=== PATIENT | male | born 1960 | race Caucasian/White ===

== ENCOUNTER 2018-07-25 12:27 | Emergency (ER) | payer BC ==
--- NOTE | 2018-07-25 13:33 | EDM.PDOCBH ---
ED HPI GENERAL MEDICAL PROBLEM - General Chief Complaint: Drug or Alcohol Abuse Stated Complaint: MAZIN DRINKING FOR 5 DAYS Time Seen by Provider: 07/25/18 13:23 Source of Information: Reports: Patient, Family, RN Notes Reviewed History Limitations: Reports: No Limitations - History of Present Illness INITIAL COMMENTS - FREE TEXT/NARRATIVE: 58-year-old gentleman presents to emergency department today requesting alcohol treatment. They do have a bed at the detox facility he will need medical evaluation prior he has no particular complaints at this time last used alcohol 3-4 hours ago Back Pain Score (Numeric/FACES): 6 - Related Data Allergies Allergy/AdvReac Type Severity Reaction Status Date / Time oyster extract Allergy Shortness Verified 07/25/18 13:52 of Breath Past Medical History Psychiatric History: Reports: Addiction Social & Family History - Tobacco Use Smoking Status *Q: Current Some Day Smoker ED ROS GENERAL - Review of Systems Review Of Systems: See Below Constitutional: Reports: No Symptoms HEENT: Reports: No Symptoms Respiratory: Reports: No Symptoms Cardiovascular: Reports: No Symptoms GI/Abdominal: Reports: No Symptoms : Reports: No Symptoms ED EXAM, BEHAVIORAL HEALTH - Physical Exam Exam: See Below Exam Limited By: No Limitations General Appearance: Alert, WD/WN, No Apparent Distress Respiratory/Chest: No Respiratory Distress, Lungs Clear, Normal Breath Sounds, No Accessory Muscle Use, Chest Non-Tender Cardiovascular: Regular Rate, Rhythm, No Murmur GI/Abdominal: Soft, Non-Tender COURSE, BEHAVIORAL HEALTH COMP - Course Vital Signs: Last Vital Signs Temp 97.8 F 07/25/18 12:46 Pulse 87 07/25/18 13:54 Resp 16 07/25/18 13:54 BP 111/72 07/25/18 13:54 Pulse Ox 90 L 07/25/18 13:54 Orders, Labs, Meds: Laboratory Tests 07/25/18 07/25/18 07/25/18 Range/Units 13:26 13:26 13:39 WBC 11.3 H (4.5-11.0) K/uL RBC 5.15 (4.30-5.90) M/uL Hgb 15.1 H (12.0-15.0) g/dL Hct 44.6 (40.0-54.0) % MCV 87 (80-98) fL MCH 29 (27-31) pg MCHC 34 (32-36) % Plt Count 346 (150-400) K/uL Neut % (Auto) 39 (36-66) % Lymph % (Auto) 33 (24-44) % [place] % (Auto) 6 (2-6) % Eos % (Auto) 21 H (2-4) % Baso % (Auto) 1 (0-1) % Sodium (140-148) mmol/L Potassium (3.6-5.2) mmol/L Chloride (100-108) mmol/L Carbon Dioxide (21-32) mmol/L Anion Gap (5.0-14.0) mmol/L BUN (7-18) mg/dL Creatinine (0.8-1.3) mg/dL Est Cr Clr Drug Dosing mL/min Estimated GFR (MDRD) (>60) Glucose (74-106) mg/dL Calcium (8.5-10.1) mg/dL Total Bilirubin (0.2-1.0) mg/dL AST (15-37) U/L ALT (12-78) U/L Alkaline Phosphatase (46-116) U/L Total Protein (6.4-8.2) g/dL Albumin (3.4-5.0) g/dL Globulin (2.3-3.5) g/dL Albumin/Globulin Ratio (1.2-2.2) Urine Color Yellow Urine Appearance Clear Urine pH 7.0 (4.5-8.0) Ur Specific [place] 1.010 (1.008-1.030) Urine Protein Negative (NEGATIVE) mg/dL Urine Glucose (UA) Normal (NEGATIVE) mg/dL Urine Ketones Negative (NEGATIVE) mg/dL Urine Occult Blood Negative (NEGATIVE) Urine Nitrite Negative (NEGAITVE) Urine Bilirubin Negative (NEGATIVE) Urine Urobilinogen Normal (NORMAL) mg/dL Ur Leukocyte Esterase Negative (NEGATIVE) Urine RBC Not seen (0-5) Urine WBC Not seen (0-5) Ur Epithelial Cells Not seen Amorphous Sediment Not seen Urine Bacteria Not seen Urine Mucus Not seen Urine Opiates Screen Negative (NEGATIVE) Ur Oxycodone Screen Presumptive positive H (NEGATIVE) Urine Methadone Screen Negative (NEGATIVE) Ur Propoxyphene Screen Negative (NEGATIVE) Ur Barbiturates Screen Negative (NEGATIVE) Ur Tricyclics Screen Negative (NEGATIVE) Ur Phencyclidine Scrn Negative (NEGATIVE) Ur Amphetamine Screen Negative (NEGATIVE) U Methamphetamines Scrn Negative (NEGATIVE) Urine MDMA Screen Negative (NEGATIVE) U Benzodiazepines Scrn Presumptive positive H (NEGATIVE) U Cocaine Metab Screen Negative (NEGATIVE) U Marijuana (THC) Screen Negative (NEGATIVE) Ethyl Alcohol mg/dL 07/25/18 07/25/18 Range/Units 13:39 13:39 WBC (4.5-11.0) K/uL RBC (4.30-5.90) M/uL Hgb (12.0-15.0) g/dL Hct (40.0-54.0) % MCV (80-98) fL MCH (27-31) pg MCHC (32-36) % Plt Count (150-400) K/uL Neut % (Auto) (36-66) % Lymph % (Auto) (24-44) % [place] % (Auto) (2-6) % Eos % (Auto) (2-4) % Baso % (Auto) (0-1) % Sodium 140 (140-148) mmol/L Potassium 3.9 (3.6-5.2) mmol/L Chloride 98 L (100-108) mmol/L Carbon Dioxide 29 (21-32) mmol/L Anion Gap 16.9 H (5.0-14.0) mmol/L BUN 7 (7-18) mg/dL Creatinine 0.7 L (0.8-1.3) mg/dL Est Cr Clr Drug Dosing 116.43 mL/min Estimated GFR (MDRD) > 60 (>60) Glucose 158 H (74-106) mg/dL Calcium 8.8 (8.5-10.1) mg/dL Total Bilirubin 0.2 (0.2-1.0) mg/dL AST 31 (15-37) U/L ALT 29 (12-78) U/L Alkaline Phosphatase 85 (46-116) U/L Total Protein 6.6 (6.4-8.2) g/dL Albumin 2.9 L (3.4-5.0) g/dL Globulin 3.7 H (2.3-3.5) g/dL Albumin/Globulin Ratio 0.8 L (1.2-2.2) Urine Color Urine Appearance Urine pH (4.5-8.0) Ur Specific [place] (1.008-1.030) Urine Protein (NEGATIVE) mg/dL Urine Glucose (UA) (NEGATIVE) mg/dL Urine Ketones (NEGATIVE) mg/dL Urine Occult Blood (NEGATIVE) Urine Nitrite (NEGAITVE) Urine Bilirubin (NEGATIVE) Urine Urobilinogen (NORMAL) mg/dL Ur Leukocyte Esterase (NEGATIVE) Urine RBC (0-5) Urine WBC (0-5) Ur Epithelial Cells Amorphous Sediment Urine Bacteria Urine Mucus Urine Opiates Screen (NEGATIVE) Ur Oxycodone Screen (NEGATIVE) Urine Methadone Screen (NEGATIVE) Ur Propoxyphene Screen (NEGATIVE) Ur Barbiturates Screen (NEGATIVE) Ur Tricyclics Screen (NEGATIVE) Ur Phencyclidine Scrn (NEGATIVE) Ur Amphetamine Screen (NEGATIVE) U Methamphetamines Scrn (NEGATIVE) Urine MDMA Screen (NEGATIVE) U Benzodiazepines Scrn (NEGATIVE) U Cocaine Metab Screen (NEGATIVE) U Marijuana (THC) Screen (NEGATIVE) Ethyl Alcohol 354 mg/dL Departure - Departure Time of Disposition: 14:16 Disposition: DC/Tfer to Inpt Rehab Fac 62 Condition: Poor Clinical Impression: Alcohol abuse - Discharge Information Referrals: PCP,None [Primary Care Provider] - Forms: ED Department Discharge Additional Instructions: Please report to [facility] for detoxification - Assessment/Plan Plan: Assessment Acuity = acute Site and laterality = alcohol abuse and intoxication Etiology = EtOH Manifestations = none Location of injury = Home Lab values = CBC, CMP unremarkable urinalysis was negative alcohol is elevated 354 and urine drug screen positive for oxycodone and benzodiazepines Plan This gentleman will be transferred to [facility] detoxification facility he is at average risk for detoxification This note was dictated using [employer] voice recognition software please call with any questions on syntax or grammar.
== END 2018-07-25 15:25 ==
LOC: JP.ED 12:27
DX: F10.229 Alcohol dependence with intoxication, unspecified (principal); F17.200 Nicotine dependence, unspecified, uncomplicated; Y90.8 Blood alcohol level of 240 mg/100 ml or more
CPT/HCPCS: 36415; 80053; 80305; 81001; 85025; 99284; G0480

== ENCOUNTER 2019-06-26 16:43 | Inpatient (IN) | payer BC ==
[2019-06-26] MEDS ORDERED: Nitroglycerin 0.4 MG Tab.SL SL STA (17:38)
[2019-06-26] MEDS ORDERED: Sodium Chloride 0.9% 10 ML Syringe FLUSH PRN (17:38)
[2019-06-26] MEDS ORDERED: fentaNYL 100 MCG/2 ML SDV IVPUSH ONE (17:40)
--- NOTE | 2019-06-26 17:43 | EDM.PDOC ---
ED HPI GENERAL MEDICAL PROBLEM - General Chief Complaint: Drug or Alcohol Abuse Stated Complaint: EVAL Time Seen by Provider: 06/26/19 17:32 Source of Information: Reports: Patient, Family, RN Notes Reviewed History Limitations: Reports: No Limitations - History of Present Illness INITIAL COMMENTS - FREE TEXT/NARRATIVE: 58-year-old gentleman presents emergency department today complaint of shortness of breath, he has a known history of alcohol abuse and dependence was found by family members to be severely impaired this morning unable to move he is requesting detoxification. Chest Pain Score (Numeric/FACES): 0 Lower Back Pain Score (Numeric/FACES): 10 - Related Data Allergies Allergy/AdvReac Type Severity Reaction Status Date / Time oyster extract Allergy Shortness Verified 07/25/18 13:52 of Breath Home Meds: Home Meds Aspirin 325 mg PO DAILY 06/26/19 [History] Insulin Glarg,Human.Rec.Analog [Lantus Solostar] 0 unit SUBCUT DAILY 06/26/19 [ History] Insulin Lispro [HumaLOG] 1 unit SQ ACBED 06/26/19 [History] metFORMIN [Glucophage] 1,000 mg PO BIDMEALS 06/26/19 [History] Past Medical History HEENT History: Reports: Cataract Cardiovascular History: Reports: Hypertension Respiratory History: Reports: COPD Gastrointestinal History: Reports: Other (See Below) Other Gastrointestinal History: hx of ulcers Musculoskeletal History: Reports: Back Pain, Chronic Neurological History: Reports: Brain Injury Psychiatric History: Reports: Addiction Endocrine/Metabolic History: Reports: Diabetes, Type I - Past Surgical History Head Surgeries/Procedures: Reports: None HEENT Surgical History: Reports: None Cardiovascular Surgical History: Reports: None Respiratory Surgical History: Reports: None GI Surgical History: Reports: None Endocrine Surgical History: Reports: None Musculoskeletal Surgical History: Reports: None Dermatological Surgical History: Reports: None Social & Family History - Family History Family Medical History: Noncontributory - Caffeine Use Caffeine Use: Reports: Coffee, Energy Drinks, Soda ED ROS GENERAL - Review of Systems Review Of Systems: See Below Constitutional: Denies: Fever, Chills HEENT: Reports: No Symptoms Respiratory: Reports: Shortness of Breath. Denies: Cough, Sputum Cardiovascular: Reports: Dyspnea on Exertion, Edema GI/Abdominal: Reports: No Symptoms : Reports: No Symptoms Musculoskeletal: Reports: Back Pain ED EXAM, GENERAL - Physical Exam Exam: See Below Exam Limited By: No Limitations General Appearance: Alert, Mild Distress Respiratory/Chest: Chest Non-Tender, Decreased Breath Sounds, Crackles Cardiovascular: Regular Rate, Rhythm, No Murmur, Other (+2 pitting edema bilaterally). No: No Edema GI/Abdominal: Soft, Non-Tender Back Exam: Decreased Range of Motion. No: CVA Tenderness (R), CVA Tenderness (L ) Course - Vital Signs Last Recorded V/S: Last Vital Signs Temp 98.0 F 06/26/19 18:44 Pulse 93 06/26/19 18:44 Resp 22 H 06/26/19 18:44 BP 129/73 06/26/19 18:44 Pulse Ox 91 L 06/26/19 18:44 - Orders/Labs/Meds Orders: Active Orders 24 hr Category Date Time Status Patient Status Manage Transfer [TRANSFER] Routine ADT 06/26/19 18:47 Active Cardiac Monitoring [RC] .As Directed Care 06/26/19 17:38 Active EKG Documentation Completion [RC] ASDIRECTED Care 06/26/19 17:40 Active Peripheral IV Care [RC] . DIRECTED Care 06/26/19 17:39 Active Chest 2V [CR] Stat Exams 06/26/19 17:40 Taken DRUG SCREEN, URINE [URCHEM] Stat Lab 06/26/19 17:38 Ordered UA W/MICROSCOPIC [URIN] Stat Lab 06/26/19 17:38 Ordered Sodium Chloride 0.9% [Saline Flush] Med 06/26/19 17:38 Active 10 ml FLUSH ASDIRECTED PRN Peripheral IV Insertion Adult [OM.PC] Stat Oth 06/26/19 17:38 Ordered Saline Lock Insert [OM.PC] Stat Oth 06/26/19 17:38 Ordered EKG 12 Lead [EK] Stat Ther 06/26/19 17:40 Ordered Medication Orders Sodium Chloride (Saline Flush) 10 ml FLUSH ASDIRECTED PRN PRN Reason: Keep Vein Open Last Admin: 06/26/19 18:26 Dose: 10 ml Labs: Laboratory Tests 06/26/19 06/26/19 06/26/19 Range/Units 18:03 18:03 18:03 WBC 9.4 (4.5-11.0) K/uL RBC 6.37 H (4.30-5.90) M/uL Hgb 18.3 H* D (12.0-15.0) g/dL Hct 53.8 (40.0-54.0) % MCV 85 (80-98) fL MCH 29 (27-31) pg MCHC 34 (32-36) % Plt Count 334 (150-400) K/uL Neut % (Auto) 59 (36-66) % Lymph % (Auto) 31 (24-44) % [place] % (Auto) 6 (2-6) % Eos % (Auto) 2 (2-4) % Baso % (Auto) 1 (0-1) % PT 9.9 (9.5-12.0) sec INR 0.91 (0.80-1.20) Sodium 137 L (140-148) mmol/L Potassium 4.1 (3.6-5.2) mmol/L Chloride 95 L (100-108) mmol/L Carbon Dioxide 29 (21-32) mmol/L Anion Gap 17.1 H (5.0-14.0) mmol/L BUN 15 D (7-18) mg/dL Creatinine 0.9 (0.8-1.3) mg/dL Est Cr Clr Drug Dosing 99.40 mL/min Estimated GFR (MDRD) > 60 (>60) Glucose 140 H (74-106) mg/dL Calcium 8.7 (8.5-10.1) mg/dL Total Bilirubin 0.2 (0.2-1.0) mg/dL AST 24 (15-37) U/L ALT 30 (12-78) U/L Alkaline Phosphatase 95 (46-116) U/L Troponin I < 0.017 (0.000-0.056) ng/mL NT-Pro-B Natriuret Pep 43 (5-125) pg/mL Total Protein 7.4 (6.4-8.2) g/dL Albumin 3.5 (3.4-5.0) g/dL Globulin 3.9 H (2.3-3.5) g/dL Albumin/Globulin Ratio 0.9 L (1.2-2.2) Ethyl Alcohol mg/dL 06/26/19 Range/Units 18:03 WBC (4.5-11.0) K/uL RBC (4.30-5.90) M/uL Hgb (12.0-15.0) g/dL Hct (40.0-54.0) % MCV (80-98) fL MCH (27-31) pg MCHC (32-36) % Plt Count (150-400) K/uL Neut % (Auto) (36-66) % Lymph % (Auto) (24-44) % [place] % (Auto) (2-6) % Eos % (Auto) (2-4) % Baso % (Auto) (0-1) % PT (9.5-12.0) sec INR (0.80-1.20) Sodium (140-148) mmol/L Potassium (3.6-5.2) mmol/L Chloride (100-108) mmol/L Carbon Dioxide (21-32) mmol/L Anion Gap (5.0-14.0) mmol/L BUN (7-18) mg/dL Creatinine (0.8-1.3) mg/dL Est Cr Clr Drug Dosing mL/min Estimated GFR (MDRD) (>60) Glucose (74-106) mg/dL Calcium (8.5-10.1) mg/dL Total Bilirubin (0.2-1.0) mg/dL AST (15-37) U/L ALT (12-78) U/L Alkaline Phosphatase (46-116) U/L Troponin I (0.000-0.056) ng/mL NT-Pro-B Natriuret Pep (5-125) pg/mL Total Protein (6.4-8.2) g/dL Albumin (3.4-5.0) g/dL Globulin (2.3-3.5) g/dL Albumin/Globulin Ratio (1.2-2.2) Ethyl Alcohol 352 mg/dL Meds: Medications Generic Name Dose Route Start Last Admin Trade Name Freq PRN Reason Stop Dose Admin Sodium Chloride 10 ml 06/26/19 17:38 06/26/19 18:26 Saline Flush FLUSH 10 ml ASDIRECTED PRN Administration Keep Vein Open Discontinued Medications Generic Name Dose Route Start Last Admin Trade Name Freq PRN Reason Stop Dose Admin Fentanyl 50 mcg 06/26/19 17:40 06/26/19 18:21 Sublimaze IVPUSH 06/26/19 17:41 50 mcg ONETIME ONE Administration Ketorolac Tromethamine 30 mg 06/26/19 18:42 Toradol IVPUSH 06/26/19 18:43 ONETIME ONE Nitroglycerin 0.4 mg 06/26/19 17:38 06/26/19 18:15 Nitrostat SL 06/26/19 17:39 0.4 mg NOW STA Administration Departure - Departure Time of Disposition: 18:52 Disposition: Admitted As Inpatient 66 Condition: Fair Clinical Impression: COPD exacerbation Referrals: PCP,None [Primary Care Provider] - Forms: ED Department Discharge Sepsis Event Note - Focused Exam Vital Signs: Vital Signs Temp Pulse Resp BP BP Pulse Ox 06/26/19 18:44 98.0 F 93 22 H 129/73 91 L 06/26/19 18:15 129/73 06/26/19 18:06 93 22 H 129/73 91 L 06/26/19 17:26 98.0 F 98 20 152/71 H 84 L Date Exam was Performed: 06/26/19 Time Exam was Performed: 18:50 - My Orders Last 24 Hours: My Active Orders 06/26/19 17:38 Cardiac Monitoring [RC] .As Directed DRUG SCREEN, URINE [URCHEM] Stat UA W/MICROSCOPIC [URIN] Stat Sodium Chloride 0.9% [Saline Flush] 10 ml FLUSH ASDIRECTED PRN Peripheral IV Insertion Adult [OM.PC] Stat Saline Lock Insert [OM.PC] Stat 06/26/19 17:39 Peripheral IV Care [RC] . DIRECTED 06/26/19 17:40 EKG Documentation Completion [RC] ASDIRECTED Chest 2V [CR] Stat EKG 12 Lead [EK] Stat - Assessment/Plan Last 24 Hours: My Active Orders 06/26/19 17:38 Cardiac Monitoring [RC] .As Directed DRUG SCREEN, URINE [URCHEM] Stat UA W/MICROSCOPIC [URIN] Stat Sodium Chloride 0.9% [Saline Flush] 10 ml FLUSH ASDIRECTED PRN Peripheral IV Insertion Adult [OM.PC] Stat Saline Lock Insert [OM.PC] Stat 06/26/19 17:39 Peripheral IV Care [RC] . DIRECTED 06/26/19 17:40 EKG Documentation Completion [RC] ASDIRECTED Chest 2V [CR] Stat EKG 12 Lead [EK] Stat Plan: Assessment Acuity = acute Site and laterality = COPD exacerbation Etiology = unknown Manifestations = hypoxia Location of injury = Home Lab values = hemoglobin elevated 18.3 probably secondary to tobacco dependence INR normal 0.9 troponin was negative BNP was negative EtOH elevated 352 chest x- ray shows some fluid in the lateral fissure, EKG demonstrates a sinus rhythm there is no ST changes or depression Plan Call discussed case with hospitalist on-call at [phone] currently agreed to come and evaluate the patient emergency department for admission This note was dictated using [employer] voice recognition software please call with any questions on syntax or grammar.
[2019-06-26] MEDS ORDERED: Ketorolac 30 MG/ML SDV IVPUSH ONE (18:42)
[2019-06-26] MEDS ORDERED: LORazepam 2 MG/ML SDV IVPUSH ONE (19:33)
--- NOTE | 2019-06-26 19:55 | PCM.HP.2 ---
H&P History of Present Illness - General Date of Service: 06/26/19 Admit Problem/Dx: Admission Diagnosis/Problem Admission Diagnosis/Problem COPD with acute lower respiratory infection Source of Information: Patient, Provider, RN History Limitations: Reports: Intoxication - History of Present Illness Initial Comments - Free Text/Narative: chief complaint: shortness of breath and drinking. 58-year-old gentleman presents emergency department today complaint of shortness of breath, he has a known history of alcohol abuse and dependence was found by family members to be severely impaired this morning unable to move he is requesting detoxification. Mr. Mike carrillo has been drinking one quart daily of scotch. requesting Detox. lorena had been sober for 10 years but got depressed and started drinking. Plan: admit to Hospital Assessment: COPD exacerbation Manifestations = hypoxia, arrived at ER with oxygen saturation at 84% Lab values = hemoglobin elevated 18.3 probably secondary to tobacco dependence INR normal 0.9 troponin was negative BNP was negative ETOH elevated 352 chest x- ray shows some fluid in the lateral fissure, EKG demonstrates a sinus rhythm there is no ST changes or depression Onset of Symptoms: Reports: Today Duration of Symptoms: Reports: Getting Worse Location: Reports: Generalized Quality: Reports: Same as Previous Episode Severity: Severe Improves with: Reports: None Worsens with: Reports: Breathing Context: Reports: Other Associated Symptoms: Reports: Confusion (drinking daily for one month.), Cough, Loss of Appetite, Malaise, Nausea/Vomiting (nausea), Shortness of Breath, Weakness Chest Pain Score (Numeric/FACES): 0 Lower Back Pain Score (Numeric/FACES): 10 - Related Data Allergies/Adverse Reactions: Allergies Allergy/AdvReac Type Severity Reaction Status Date / Time oyster extract Allergy Shortness Verified 07/25/18 13:52 of Breath Home Medications: Home Meds Aspirin 325 mg PO DAILY 06/26/19 [History] Insulin Glarg,Human.Rec.Analog [Lantus Solostar] 0 unit SUBCUT DAILY 06/26/19 [ History] Insulin Lispro [HumaLOG] 1 unit SQ ACBED 06/26/19 [History] metFORMIN [Glucophage] 1,000 mg PO BIDMEALS 06/26/19 [History] Past Medical History HEENT History: Reports: Cataract Cardiovascular History: Reports: Hypertension Respiratory History: Reports: COPD Gastrointestinal History: Reports: Other (See Below) Other Gastrointestinal History: hx of ulcers Genitourinary History: Reports: Renal Calculus, Other (See Below) Other Genitourinary History: urgency Musculoskeletal History: Reports: Back Pain, Chronic Neurological History: Reports: Brain Injury Psychiatric History: Reports: Addiction Endocrine/Metabolic History: Reports: Diabetes, Type I Do You Give Correction Boluses or Sliding Scale: Yes Patient/Family Able to Supply Written Copy of Sliding Scale: No Dermatologic History: Reports: Other (See Below) Other Dermatologic History: scratch wounds form nerves - Past Surgical History Head Surgeries/Procedures: Reports: None HEENT Surgical History: Reports: None Cardiovascular Surgical History: Reports: None Respiratory Surgical History: Reports: None GI Surgical History: Reports: None Endocrine Surgical History: Reports: None Musculoskeletal Surgical History: Reports: None Dermatological Surgical History: Reports: None Social & Family History - Family History Family Medical History: Noncontributory - Tobacco Use Smoking Status *Q: Current Every Day Smoker Years of Tobacco use: 40 Packs/Tins Daily: 2 Used Tobacco, but Quit: No - Caffeine Use Caffeine Use: Reports: Coffee, Energy Drinks, Soda - Alcohol Use Days Per Week of Alcohol Use: 7 Number of Drinks Per Day: 10 Total Drinks Per Week: 70 Alcohol Use in Last Twelve Months: Yes Alcohol Use Frequency: Daily (drinking one quart of scotch daily for one month, had been sober for 10 years prior to recent alcohol use. last drink at 1 pm today.) Desires Substance Cessation Medication: Yes (request Detox at [place], [place].) - Recreational Drug Use Recreational Drug Use: No - Living Situation & Occupation Living situation: Reports: ( of cancer.) Occupation: Other (lives on [address] in [facility] ( [place] miles north of [place], [place].)) H&P Review of Systems - Review of Systems: Review Of Systems: See Below General: Reports: Weakness, Fatigue, Other (thirsty) HEENT: Reports: Other (sore on upper lip) Pulmonary: Reports: Shortness of Breath, Wheezing, Cough Cardiovascular: Reports: Dyspnea on Exertion, Edema Gastrointestinal: Reports: Nausea Genitourinary: Reports: No Symptoms Musculoskeletal: Reports: No Symptoms Skin: Reports: Bruising (forearms) Psychiatric: Reports: Depression (reports depressed thinking of his who has of cancer.), Anxiety Neurological: Reports: Weakness, Other (intoxication. ETOH level 352) Hematologic/Lymphatic: Reports: Easy Bleeding, Easy Bruising Immunologic: Reports: No Symptoms Exam - Exam Exam: See Below - Vital Signs Vital Signs: Last Vital Signs Temp 36.7 C 06/26/19 18:44 Pulse 94 06/26/19 18:45 Resp 24 H 06/26/19 18:45 BP 141/87 H 06/26/19 18:45 Pulse Ox 94 L 06/26/19 18:45 Weight: 104.326 kg - Exam Quality Assessment: Supplemental Oxygen (oxygen at 3 liter per NC) General: Alert, Cooperative, Mild Distress, Other (face is red, eyes bloodshot) HEENT: EOMI, Hearing Intact, Pupils Equal, Pupils Reactive, Other (mouth-tongue dried. ulcer noted oral cavity lower lip). No: Conjunctiva Clear (sclera injected) Neck: Supple, Trachea Midline Lungs: Decreased Breath Sounds, Crackles, Wheezing Cardiovascular: Regular Rate, Regular Rhythm GI/Abdominal Exam: Normal Bowel Sounds, Soft, Non-Tender, Other (obese) (Male) Exam: Deferred Rectal (Males) Exam: Deferred Back Exam: Normal Inspection, Full Range of Motion Extremities: Normal Range of Motion, Pedal Edema (1+ bilateral lower leg edema) Peripheral Pulses: 2+: Radial (L), Radial (R) Skin: Warm, Dry, Ecchymosis, Wound (few scattered abrasion bilateral forearms.) Neurological: Reflexes Equal Bilateral, Strength Equal Bilateral, Normal Speech , Normal Tone Neuro Extensive - Mental Status: Alert Psychiatric: Alert, Anxious - Patient Data Lab Results Last 24 hrs: Laboratory Results - last 24 hr 06/26/19 06/26/19 06/26/19 Range/Units 18:03 18:03 18:03 WBC 9.4 (4.5-11.0) K/uL RBC 6.37 H (4.30-5.90) M/uL Hgb 18.3 H* D (12.0-15.0) g/dL Hct 53.8 (40.0-54.0) % MCV 85 (80-98) fL MCH 29 (27-31) pg MCHC 34 (32-36) % Plt Count 334 (150-400) K/uL Neut % (Auto) 59 (36-66) % Lymph % (Auto) 31 (24-44) % Granite % (Auto) 6 (2-6) % Eos % (Auto) 2 (2-4) % Baso % (Auto) 1 (0-1) % PT 9.9 (9.5-12.0) sec INR 0.91 (0.80-1.20) Sodium 137 L (140-148) mmol/L Potassium 4.1 (3.6-5.2) mmol/L Chloride 95 L (100-108) mmol/L Carbon Dioxide 29 (21-32) mmol/L Anion Gap 17.1 H (5.0-14.0) mmol/L BUN 15 D (7-18) mg/dL Creatinine 0.9 (0.8-1.3) mg/dL Est Cr Clr Drug Dosing 99.40 mL/min Estimated GFR (MDRD) > 60 (>60) Glucose 140 H (74-106) mg/dL Calcium 8.7 (8.5-10.1) mg/dL Total Bilirubin 0.2 (0.2-1.0) mg/dL AST 24 (15-37) U/L ALT 30 (12-78) U/L Alkaline Phosphatase 95 (46-116) U/L Troponin I < 0.017 (0.000-0.056) ng/mL NT-Pro-B Natriuret Pep 43 (5-125) pg/mL Total Protein 7.4 (6.4-8.2) g/dL Albumin 3.5 (3.4-5.0) g/dL Globulin 3.9 H (2.3-3.5) g/dL Albumin/Globulin Ratio 0.9 L (1.2-2.2) Ethyl Alcohol mg/dL 06/26/19 Range/Units 18:03 WBC (4.5-11.0) K/uL RBC (4.30-5.90) M/uL Hgb (12.0-15.0) g/dL Hct (40.0-54.0) % MCV (80-98) fL MCH (27-31) pg MCHC (32-36) % Plt Count (150-400) K/uL Neut % (Auto) (36-66) % Lymph % (Auto) (24-44) % Granite % (Auto) (2-6) % Eos % (Auto) (2-4) % Baso % (Auto) (0-1) % PT (9.5-12.0) sec INR (0.80-1.20) Sodium (140-148) mmol/L Potassium (3.6-5.2) mmol/L Chloride (100-108) mmol/L Carbon Dioxide (21-32) mmol/L Anion Gap (5.0-14.0) mmol/L BUN (7-18) mg/dL Creatinine (0.8-1.3) mg/dL Est Cr Clr Drug Dosing mL/min Estimated GFR (MDRD) (>60) Glucose (74-106) mg/dL Calcium (8.5-10.1) mg/dL Total Bilirubin (0.2-1.0) mg/dL AST (15-37) U/L ALT (12-78) U/L Alkaline Phosphatase (46-116) U/L Troponin I (0.000-0.056) ng/mL NT-Pro-B Natriuret Pep (5-125) pg/mL Total Protein (6.4-8.2) g/dL Albumin (3.4-5.0) g/dL Globulin (2.3-3.5) g/dL Albumin/Globulin Ratio (1.2-2.2) Ethyl Alcohol 352 mg/dL Result Diagrams: 06/26/19 18:03 06/26/19 18:03 Sepsis Event Note - Evaluation Sepsis Screening Result: No Definite Risk - Focused Exam Vital Signs: Vital Signs Temp Pulse Resp BP BP Pulse Ox 06/26/19 18:45 94 24 H 141/87 H 94 L 06/26/19 18:44 36.7 C 93 22 H 129/73 91 L 06/26/19 18:35 28 H 105/46 L 90 L 06/26/19 18:15 129/73 06/26/19 18:06 93 22 H 129/73 91 L 06/26/19 17:26 36.7 C 98 20 152/71 H 84 L Date Exam was Performed: 06/26/19 Time Exam was Performed: 20:46 - Problem List (1) COPD exacerbation SNOMED Code(s): 860651727 ICD Code: J44.1 - CHRONIC OBSTRUCTIVE PULMONARY DISEASE W (ACUTE) EXACERBATION Status: Acute Priority: High Current Visit: Yes (2) Alcohol abuse SNOMED Code(s): 19281664 ICD Code: F10.10 - ALCOHOL ABUSE, UNCOMPLICATED Status: Acute Priority: High Current Visit: Yes (3) Tobacco use disorder, severe, dependence SNOMED Code(s): 83753457 ICD Code: F17.200 - NICOTINE DEPENDENCE, UNSPECIFIED, UNCOMPLICATED Status : Acute Priority: High Current Visit: Yes (4) Diabetes mellitus, type 2 SNOMED Code(s): 62414537 ICD Code: E11.9 - TYPE 2 DIABETES MELLITUS WITHOUT COMPLICATIONS Status: Acute Priority: Low Current Visit: Yes Qualifiers: Diabetes mellitus group home insulin use: with group home use Problem List Initiated/Reviewed/Updated: Yes Orders Last 24hrs: Active Orders 24 hr Category Date Time Status Patient Status Manage Transfer [TRANSFER] Routine ADT 06/26/19 18:47 Active Cardiac Monitoring [RC] .As Directed Care 06/26/19 17:38 Active EKG Documentation Completion [RC] ASDIRECTED Care 06/26/19 17:40 Active Peripheral IV Care [RC] . DIRECTED Care 06/26/19 17:39 Active Chest 2V [CR] Stat Exams 06/26/19 17:40 Taken DRUG SCREEN, URINE [URCHEM] Stat Lab 06/26/19 17:38 Ordered UA W/MICROSCOPIC [URIN] Stat Lab 06/26/19 17:38 Ordered Sodium Chloride 0.9% [Saline Flush] Med 06/26/19 17:38 Active 10 ml FLUSH ASDIRECTED PRN Peripheral IV Insertion Adult [OM.PC] Stat Oth 06/26/19 17:38 Ordered Saline Lock Insert [OM.PC] Stat Oth 06/26/19 17:38 Ordered Resuscitation Status Routine Resus Stat 06/26/19 19:35 Ordered EKG 12 Lead [EK] Stat Ther 06/26/19 17:40 Ordered Medication Orders Sodium Chloride (Saline Flush) 10 ml FLUSH ASDIRECTED PRN PRN Reason: Keep Vein Open Last Admin: 06/26/19 18:26 Dose: 10 ml Assessment/Plan Comment:: ASSESSMENT AND PLAN- COPD EXACERBATION 58-year-old gentleman presents emergency department today complaint of shortness of breath, he has a known history of alcohol abuse and dependence was found by family members to be severely impaired this morning unable to move. Manifestations = hypoxia, arrived at ER with oxygen saturation at 84% Lab values = hemoglobin elevated 18.3 probably secondary to tobacco dependence INR normal 0.9 troponin was negative BNP was negative ETOH elevated 352 chest x- ray shows some fluid in the lateral fissure, EKG demonstrates a sinus rhythm there is no ST changes or depression COPD EXACERBATION Advise to be on home oxygen but declines. He smoke 2 packs of cigarettes daily. -IV fluids for hydration -IV Doxycycline 100mg every 12 hours -IV Solu-Medrol 125mg once then IV 62.5 mg. every 6 hours -Duo-neb scheduled every 6 hours -Albuterol nebs every 4 hours as needed -am lab CBC, BMP ETOH ABUSE- reports drinking one quart of scotch daily for one month. Reports had been 10 years sober. starting drinking due to depression. Requesting Detox at [place]. Had tried to quit drinking before but experience withdrawals and hallucinations. Starting to feel agitated and anxious even with a alcohol level of 357. -Pain and nausea medication as needed -CIWAA protocol -Protonix 40 mg p.o. twice daily -IV fluids Normal Saline 125 ml/hr. DIABETES TYPE 2- has not been taking insulin for a long time because was afraid of low blood sugars with insulin and alcohol use. -blood glucose before meals and at bedtime -Insulin high dose sliding scale coverage -restart Lantus 30 mg subcut. at bedtime MAINTENANCE ISSUES -DVT prophylaxis- SCD -GI prophylaxis- IV Protonix 40 mg every 12 hours -Samuel catheter- not indicated -Nutrition- consistent carb diet -Nicotine dependence- Nicotine patch CODE STATUS-FULL CODE ADMISSION STATUS-patient will be admitted to inpatient status, expect at least a 2 night hospital stay for evaluation and management of problems as outlined above. At the time of this admission I do not reasonably expected evaluation and management of this problem will require more than a 96 hour hospital stay. DISPOSITION-anticipate discharge to home after the hospital stay. PRIMARY CARE PROVIDER-Dr. Sal, Wayne Herrera, [place] HOSPITALIST- Dr. Lombardo - Mortality Measure Prognosis:: Good - Mortality Measure Prognosis:: Good
[2019-06-26] MEDS ORDERED: Insulin Lispro 100 Unit/ML 3 ML KwikPen SUBCUT SCH (20:30)
[2019-06-26] MEDS ORDERED: Docusate Sodium 100 MG Cap PO PRN (20:30)
[2019-06-26] MEDS ORDERED: Bisacodyl 5 MG Tab PO PRN (20:30)
[2019-06-26] MEDS ORDERED: Acetaminophen 325 MG Tab PO PRN (20:30)
[2019-06-26] MEDS ORDERED: methylPREDNISolone Sodium Succinate 125 MG/2 ML SDV IV ONE (20:30)
[2019-06-26] MEDS ORDERED: Albuterol 0.083% 2.5 MG/3 ML Neb Soln NEB PRN (20:30)
[2019-06-26] MEDS ORDERED: Ondansetron 4 MG Tab.DIS PO PRN (20:30)
[2019-06-26] MEDS ORDERED: Ondansetron 4 MG/2 ML SDV IV PRN (20:30)
[2019-06-26 20:48] LABS: HEMOGLOBIN A1C 8.5 % (4.5-6.2)
[2019-06-26] MEDS: Albuterol/Ipratropium 3.0-0.5 MG/3 ML Neb Soln NEB SCH (20:59)
[2019-06-26] MEDS ORDERED: Pantoprazole 40 MG Vial IV SCH (21:00)
[2019-06-26] MEDS ORDERED: Insulin Glargine,Human Rec. Analog 100 Units/ML 3 ML Pen SUBCUT SCH (21:00)
[2019-06-26] MEDS: Nicotine 21 MG/24 Hr Patch TRDERM SCH (21:05)
[2019-06-26] MEDS: Sodium Chloride 0.9% 1,000 ML IV SCH (21:05)
[2019-06-26] MEDS: Doxycycline 100 MG in Sodium Chloride 0.9% 100 ML IV SCH (21:08)
[2019-06-26] MEDS: Acetaminophen/HYDROcodone 325-5 MG Tab PO PRN (21:31)
[2019-06-26] MEDS: Morphine 2 MG/ML Syringe IVPUSH PRN (21:32)
[2019-06-26] MEDS ORDERED: LORazepam 2 MG/ML SDV IVPUSH PRN (23:11)
[2019-06-26] MEDS ORDERED: LORazepam 2 MG/ML SDV IV SCH (23:30)
[2019-06-26] MEDS ORDERED: Gabapentin 100 MG Cap PO SCH (23:30)
[2019-06-27] MEDS ORDERED: Albuterol 0.083% 2.5 MG/3 ML Neb Soln NEB ONE (01:45)
[2019-06-27] MEDS ORDERED: methylPREDNISolone Sodium Succinate 40 MG/1 ML SDV IV SCH (02:00)
--- NOTE | 2019-06-27 03:10 | PCM.SN ---
- Free Text/Narrative Note: Chester was admitted last night for an exacerbation of COPD secondary to bronchitis and concern for the development of alcohol withdrawal following a [place] with scotch. He was intoxicated at the time of admission. Overnight he has had progressive increase in work of breathing and progressive oxygen requirements. He is currently at 4-1/2 L of supplemental oxygen but had been up to 6 L for a while. Nebulizers do seem to help for a while. He reports feeling short of breath and has a loose cough. He is starting to feel shaky but is not hallucinating at this time. ABGs were obtained and did show a mild reduction in his pH with a PCO2 of 53. I am worried about possible progression to respiratory failure. He already has mildly elevated PCO2 and if alcohol withdrawal progresses he could develop rapid worsening of his respiratory status. He will be transferred down to the intensive care unit. He is going to be started on noninvasive ventilation. We will utilize frequent nebulizers. He will be closely monitored for alcohol withdrawal. Santana Lombardo MD
[2019-06-27] MEDS ORDERED: LORazepam 1 MG Tab PO SCH (03:15)
[2019-06-27] MEDS: Acetaminophen/HYDROcodone 325-5 MG Tab PO PRN (03:46)
[2019-06-27] MEDS: Morphine 2 MG/ML Syringe IVPUSH PRN (03:47)
[2019-06-27] MEDS: Albuterol 0.083% 2.5 MG/3 ML Neb Soln NEB PRN ×4 (03:56→13:04)
[2019-06-27] MEDS: Sodium Chloride 0.9% 1,000 ML IV SCH (05:27)
[2019-06-27] MEDS: LORazepam 2 MG/ML SDV IV SCH ×5 (06:19→13:34)
[2019-06-27] MEDS: Albuterol/Ipratropium 3.0-0.5 MG/3 ML Neb Soln NEB SCH ×2 (06:57→10:45)
[2019-06-27] MEDS ORDERED: Pantoprazole 40 MG Tab.CR PO SCH (07:30)
[2019-06-27] MEDS: Insulin Lispro 100 Unit/ML 3 ML KwikPen SUBCUT SCH ×2 (07:53→12:43)
[2019-06-27] MEDS ORDERED: metFORMIN 500 MG Tab PO SCH (08:00)
[2019-06-27] MEDS ORDERED: methylPREDNISolone Sodium Succinate 125 MG/2 ML SDV IV SCH (08:00)
[2019-06-27] MEDS ORDERED: Gabapentin 400 MG Cap PO SCH ×2 (08:00→14:00)
[2019-06-27] MEDS: Nicotine 21 MG/24 Hr Patch TRDERM SCH (08:01)
[2019-06-27] MEDS ORDERED: Aspirin 325 MG Tab.EC PO SCH (09:00)
[2019-06-27] MEDS ORDERED: Thiamine 100 MG Tab PO SCH (09:00)
[2019-06-27] MEDS ORDERED: Folic Acid 1 MG Tab PO SCH (09:00)
--- NOTE | 2019-06-27 09:22 | PCM.PN ---
- General Info Date of Service: 06/27/19 Subjective Update: No acute events overnight after the transfer to the intensive care unit. He was able to wear the noninvasive ventilation for about 2 hours. He has been stable on nasal cannula since that time. He is developing alcohol withdrawal and has received several doses of oral lorazepam as well as a dose of IV lorazepam. Most prominent symptoms are tremor and diaphoresis. No hallucinations. Shortness of breath is better today. Oxygenation has improved. Functional Status: Reports: Pain Controlled, Tolerating Diet - Review of Systems General: Denies: Fever Neurological: Reports: Tremors Psychiatric: Denies: Hallucinations - Patient Data Vitals - Most Recent: Last Vital Signs Temp 36.7 C 06/27/19 04:00 Pulse 115 H 06/27/19 06:57 Resp 23 H 06/27/19 06:00 BP 187/78 H 06/27/19 06:00 Pulse Ox 88 L 06/27/19 06:00 Weight - Most Recent: 104.326 kg I&O - Last 24 Hours: Intake & Output 06/26/19 06/27/19 06/27/19 22:59 06:59 14:59 Intake Total 905 Balance 905 Lab Results Last 24 Hours: Laboratory Results - last 24 hr 06/26/19 06/26/19 06/26/19 Range/Units 18:03 18:03 18:03 WBC 9.4 (4.5-11.0) K/uL RBC 6.37 H (4.30-5.90) M/uL Hgb 18.3 H* D (12.0-15.0) g/dL Hct 53.8 (40.0-54.0) % MCV 85 (80-98) fL MCH 29 (27-31) pg MCHC 34 (32-36) % Plt Count 334 (150-400) K/uL Neut % (Auto) 59 (36-66) % Lymph % (Auto) 31 (24-44) % Randall % (Auto) 6 (2-6) % Eos % (Auto) 2 (2-4) % Baso % (Auto) 1 (0-1) % PT 9.9 (9.5-12.0) sec INR 0.91 (0.80-1.20) Puncture Site ABG pH (7.350-7.450) ABG pCO2 (35.0-42.0) mmHg ABG pO2 (75.0-100.0) mmHg ABG HCO3 (22.0-26.0) mmol/L ABG Total CO2 (23.0-27.0) mmol/L ABG O2 Saturation (95.0-98.0) % ABG O2 Content (15.0-23.0) %vol ABG Base Excess mm/L ABG Hemoglobin (13.5-18.0) g/dL ABG Oxyhemoglobin % ABG Carboxyhemoglobin (0.0-1.6) % ABG Methemoglobin % O2 Delivery Device Oxygen Flow Rate L Sodium 137 L (140-148) mmol/L Potassium 4.1 (3.6-5.2) mmol/L Chloride 95 L (100-108) mmol/L Carbon Dioxide 29 (21-32) mmol/L Anion Gap 17.1 H (5.0-14.0) mmol/L BUN 15 D (7-18) mg/dL Creatinine 0.9 (0.8-1.3) mg/dL Est Cr Clr Drug Dosing 99.40 mL/min Estimated GFR (MDRD) > 60 (>60) Glucose 140 H (74-106) mg/dL Hemoglobin A1c (4.5-6.2) % Calcium 8.7 (8.5-10.1) mg/dL Total Bilirubin 0.2 (0.2-1.0) mg/dL AST 24 (15-37) U/L ALT 30 (12-78) U/L Alkaline Phosphatase 95 (46-116) U/L Troponin I < 0.017 (0.000-0.056) ng/mL NT-Pro-B Natriuret Pep 43 (5-125) pg/mL Total Protein 7.4 (6.4-8.2) g/dL Albumin 3.5 (3.4-5.0) g/dL Globulin 3.9 H (2.3-3.5) g/dL Albumin/Globulin Ratio 0.9 L (1.2-2.2) Urine Color (YELLOW) Urine Appearance (CLEAR) Urine pH (5.0-8.0) Ur Specific [place] (1.008-1.030) Urine Protein (NEGATIVE) mg/dL Urine Glucose (UA) (NEGATIVE) mg/dL Urine Ketones (NEGATIVE) mg/dL Urine Occult Blood (NEGATIVE) Urine Nitrite (NEGATIVE) Urine Bilirubin (NEGATIVE) Urine Urobilinogen (0.2-1.0) EU/dL Ur Leukocyte Esterase (NEGATIVE) Urine RBC (0-5) Urine WBC (0-5) Ur Epithelial Cells Amorphous Sediment Urine Bacteria Urine Mucus Urine Other Urine Opiates Screen (NEGATIVE) Ur Oxycodone Screen (NEGATIVE) Urine Methadone Screen (NEGATIVE) Ur Propoxyphene Screen (NEGATIVE) Ur Barbiturates Screen (NEGATIVE) Ur Tricyclics Screen (NEGATIVE) Ur Phencyclidine Scrn (NEGATIVE) Ur Amphetamine Screen (NEGATIVE) U Methamphetamines Scrn (NEGATIVE) Urine MDMA Screen (NEGATIVE) U Benzodiazepines Scrn (NEGATIVE) U Cocaine Metab Screen (NEGATIVE) U Marijuana (THC) Screen (NEGATIVE) Ethyl Alcohol mg/dL 06/26/19 06/26/19 06/26/19 Range/Units 18:03 19:57 19:57 WBC (4.5-11.0) K/uL RBC (4.30-5.90) M/uL Hgb (12.0-15.0) g/dL Hct (40.0-54.0) % MCV (80-98) fL MCH (27-31) pg MCHC (32-36) % Plt Count (150-400) K/uL Neut % (Auto) (36-66) % Lymph % (Auto) (24-44) % Randall % (Auto) (2-6) % Eos % (Auto) (2-4) % Baso % (Auto) (0-1) % PT (9.5-12.0) sec INR (0.80-1.20) Puncture Site ABG pH (7.350-7.450) ABG pCO2 (35.0-42.0) mmHg ABG pO2 (75.0-100.0) mmHg ABG HCO3 (22.0-26.0) mmol/L ABG Total CO2 (23.0-27.0) mmol/L ABG O2 Saturation (95.0-98.0) % ABG O2 Content (15.0-23.0) %vol ABG Base Excess mm/L ABG Hemoglobin (13.5-18.0) g/dL ABG Oxyhemoglobin % ABG Carboxyhemoglobin (0.0-1.6) % ABG Methemoglobin % O2 Delivery Device Oxygen Flow Rate L Sodium (140-148) mmol/L Potassium (3.6-5.2) mmol/L Chloride (100-108) mmol/L Carbon Dioxide (21-32) mmol/L Anion Gap (5.0-14.0) mmol/L BUN (7-18) mg/dL Creatinine (0.8-1.3) mg/dL Est Cr Clr Drug Dosing mL/min Estimated GFR (MDRD) (>60) Glucose (74-106) mg/dL Hemoglobin A1c (4.5-6.2) % Calcium (8.5-10.1) mg/dL Total Bilirubin (0.2-1.0) mg/dL AST (15-37) U/L ALT (12-78) U/L Alkaline Phosphatase (46-116) U/L Troponin I (0.000-0.056) ng/mL NT-Pro-B Natriuret Pep (5-125) pg/mL Total Protein (6.4-8.2) g/dL Albumin (3.4-5.0) g/dL Globulin (2.3-3.5) g/dL Albumin/Globulin Ratio (1.2-2.2) Urine Color Yellow (YELLOW) Urine Appearance Cloudy A (CLEAR) Urine pH 6.0 (5.0-8.0) Ur Specific [place] >= 1.030 (1.008-1.030) Urine Protein >=300 H (NEGATIVE) mg/dL Urine Glucose (UA) Negative (NEGATIVE) mg/dL Urine Ketones 15 H (NEGATIVE) mg/dL Urine Occult Blood Moderate H (NEGATIVE) Urine Nitrite Negative (NEGATIVE) Urine Bilirubin Negative (NEGATIVE) Urine Urobilinogen 0.2 (0.2-1.0) EU/dL Ur Leukocyte Esterase Negative (NEGATIVE) Urine RBC 5-10 H (0-5) Urine WBC 5-10 H (0-5) Ur Epithelial Cells Rare Amorphous Sediment Few Urine Bacteria Many Urine Mucus Rare Urine Other Urine Opiates Screen Negative (NEGATIVE) Ur Oxycodone Screen Negative (NEGATIVE) Urine Methadone Screen Negative (NEGATIVE) Ur Propoxyphene Screen Negative (NEGATIVE) Ur Barbiturates Screen Negative (NEGATIVE) Ur Tricyclics Screen Negative (NEGATIVE) Ur Phencyclidine Scrn Negative (NEGATIVE) Ur Amphetamine Screen Negative (NEGATIVE) U Methamphetamines Scrn Negative (NEGATIVE) Urine MDMA Screen Negative (NEGATIVE) U Benzodiazepines Scrn Negative (NEGATIVE) U Cocaine Metab Screen Negative (NEGATIVE) U Marijuana (THC) Screen Negative (NEGATIVE) Ethyl Alcohol 352 mg/dL 06/26/19 06/27/19 Range/Units 20:30 01:30 WBC (4.5-11.0) K/uL RBC (4.30-5.90) M/uL Hgb (12.0-15.0) g/dL Hct (40.0-54.0) % MCV (80-98) fL MCH (27-31) pg MCHC (32-36) % Plt Count (150-400) K/uL Neut % (Auto) (36-66) % Lymph % (Auto) (24-44) % Randall % (Auto) (2-6) % Eos % (Auto) (2-4) % Baso % (Auto) (0-1) % PT (9.5-12.0) sec INR (0.80-1.20) Puncture Site R brachial ABG pH 7.314 L (7.350-7.450) ABG pCO2 53.7 H (35.0-42.0) mmHg ABG pO2 70.1 L (75.0-100.0) mmHg ABG HCO3 26.5 H (22.0-26.0) mmol/L ABG Total CO2 22.8 L (23.0-27.0) mmol/L ABG O2 Saturation 88.9 L (95.0-98.0) % ABG O2 Content 21.3 (15.0-23.0) %vol ABG Base Excess -0.5 mm/L ABG Hemoglobin 17.6 (13.5-18.0) g/dL ABG Oxyhemoglobin 86.3 % ABG Carboxyhemoglobin 1.8 H (0.0-1.6) % ABG Methemoglobin 1.1 % O2 Delivery Device Simple mask Oxygen Flow Rate 6.0 L Sodium (140-148) mmol/L Potassium (3.6-5.2) mmol/L Chloride (100-108) mmol/L Carbon Dioxide (21-32) mmol/L Anion Gap (5.0-14.0) mmol/L BUN (7-18) mg/dL Creatinine (0.8-1.3) mg/dL Est Cr Clr Drug Dosing mL/min Estimated GFR (MDRD) (>60) Glucose (74-106) mg/dL Hemoglobin A1c 8.5 H (4.5-6.2) % Calcium (8.5-10.1) mg/dL Total Bilirubin (0.2-1.0) mg/dL AST (15-37) U/L ALT (12-78) U/L Alkaline Phosphatase (46-116) U/L Troponin I (0.000-0.056) ng/mL NT-Pro-B Natriuret Pep (5-125) pg/mL Total Protein (6.4-8.2) g/dL Albumin (3.4-5.0) g/dL Globulin (2.3-3.5) g/dL Albumin/Globulin Ratio (1.2-2.2) Urine Color (YELLOW) Urine Appearance (CLEAR) Urine pH (5.0-8.0) Ur Specific [place] (1.008-1.030) Urine Protein (NEGATIVE) mg/dL Urine Glucose (UA) (NEGATIVE) mg/dL Urine Ketones (NEGATIVE) mg/dL Urine Occult Blood (NEGATIVE) Urine Nitrite (NEGATIVE) Urine Bilirubin (NEGATIVE) Urine Urobilinogen (0.2-1.0) EU/dL Ur Leukocyte Esterase (NEGATIVE) Urine RBC (0-5) Urine WBC (0-5) Ur Epithelial Cells Amorphous Sediment Urine Bacteria Urine Mucus Urine Other Urine Opiates Screen (NEGATIVE) Ur Oxycodone Screen (NEGATIVE) Urine Methadone Screen (NEGATIVE) Ur Propoxyphene Screen (NEGATIVE) Ur Barbiturates Screen (NEGATIVE) Ur Tricyclics Screen (NEGATIVE) Ur Phencyclidine Scrn (NEGATIVE) Ur Amphetamine Screen (NEGATIVE) U Methamphetamines Scrn (NEGATIVE) Urine MDMA Screen (NEGATIVE) U Benzodiazepines Scrn (NEGATIVE) U Cocaine Metab Screen (NEGATIVE) U Marijuana (THC) Screen (NEGATIVE) Ethyl Alcohol mg/dL Med Orders - Current: Current Medications Acetaminophen (Tylenol) 650 mg PO Q4H PRN PRN Reason: Pain (Mild 1-3)/fever Hydrocodone Bitart/Acetaminophen ([place] 325-5 Mg) 1 tab PO Q4H PRN PRN Reason: Pain (moderate 4-6) Last Admin: 06/27/19 03:46 Dose: 1 tab Albuterol (Proventil Neb Soln) 2.5 mg NEB Q2H PRN PRN Reason: Shortness Of Breath/wheezing Last Admin: 06/27/19 08:58 Dose: 2.5 mg Albuterol/Ipratropium (Duoneb 3.0-0.5 Mg/3 Ml) 3 ml NEB QIDRT [facility] Last Admin: 06/27/19 06:57 Dose: 3 ml Aspirin (Ecotrin) 325 mg PO DAILY [facility] Last Admin: 06/27/19 08:00 Dose: 325 mg Bisacodyl (Dulcolax) 5 mg PO DAILY PRN PRN Reason: Constipation Docusate Sodium (Colace) 100 mg PO BID PRN PRN Reason: Constipation Folic Acid (Folic Acid) 1 mg PO DAILY [facility] Last Admin: 06/27/19 08:00 Dose: 1 mg Gabapentin (Neurontin) 400 mg PO TID [facility] Doxycycline Hyclate 100 mg/ (Sodium Chloride) 100 mls @ 100 mls/hr IV Q12H [facility] Last Admin: 06/26/19 21:08 Dose: 100 mls/hr Sodium Chloride (Normal Saline) 1,000 mls @ 125 mls/hr IV ASDIRECTED [facility] Last Admin: 06/27/19 05:27 Dose: 125 mls/hr Insulin Human Lispro (Humalog) 0 unit SUBCUT QIDACANDBED [facility]; Protocol Last Admin: 06/27/19 07:53 Dose: 4 unit Lorazepam (Ativan) 1 - 3 mg PO ASDIRECTED [facility]; Protocol Last Admin: 06/27/19 03:46 Dose: 2 mg Lorazepam (Ativan) 1 - 3 mg IV ASDIRECTED [facility]; Protocol Last Admin: 06/27/19 09:11 Dose: 3 mg Metformin HCl (Glucophage) 1,000 mg PO BIDMEALS [facility] Last Admin: 06/27/19 07:51 Dose: 1,000 mg Methylprednisolone Sodium Succinate (Solu-Medrol) 62.5 mg IV Q6H [facility] Last Admin: 06/27/19 07:50 Dose: 62.5 mg Morphine Sulfate (Morphine) 2 mg IVPUSH Q2H PRN PRN Reason: Pain (severe 7-10) Last Admin: 06/27/19 03:47 Dose: 2 mg Nicotine (Habitrol) 21 mg TRDERM DAILY [facility] Last Admin: 06/27/19 08:01 Dose: 21 mg Ondansetron HCl (Zofran Odt) 4 mg PO Q6H PRN PRN Reason: Nausea able to take PO Ondansetron HCl (Zofran) 4 mg IV Q4H PRN PRN Reason: Nausea/Vomiting Pantoprazole Sodium (Protonix) 40 mg PO ACBREAKFAST [facility] Last Admin: 06/27/19 07:50 Dose: 40 mg Thiamine HCl (Vitamin B-1) 100 mg PO DAILY [facility] Last Admin: 06/27/19 08:00 Dose: 100 mg Discontinued Medications Albuterol (Proventil Neb Soln) 2.5 mg NEB Q4H PRN PRN Reason: Shortness Of Breath/wheezing Last Admin: 06/27/19 01:06 Dose: 2.5 mg Albuterol (Proventil Neb Soln) 2.5 mg NEB ONETIME ONE Stop: 06/27/19 01:46 Last Admin: 06/27/19 01:57 Dose: 2.5 mg Fentanyl (Sublimaze) 50 mcg IVPUSH ONETIME ONE Stop: 06/26/19 17:41 Last Admin: 06/26/19 18:21 Dose: 50 mcg Gabapentin (Neurontin) 200 mg PO Q6H [facility] Last Admin: 06/26/19 23:31 Dose: 200 mg Gabapentin (Neurontin) 400 mg PO TID [facility] Last Admin: 06/27/19 07:53 Dose: 400 mg Insulin Glargine (Lantus Solostar) 30 units SUBCUT BEDTIME [facility] Last Admin: 06/26/19 21:37 Dose: 30 units Insulin Human Lispro (Humalog) 0 unit SUBCUT QIDACANDBED [facility]; Protocol Last Admin: 06/26/19 21:21 Dose: Not Given Ketorolac Tromethamine (Toradol) 30 mg IVPUSH ONETIME ONE Stop: 06/26/19 18:43 Last Admin: 06/26/19 18:50 Dose: 30 mg Lorazepam (Ativan) 1 mg IVPUSH ONETIME ONE Stop: 06/26/19 19:34 Last Admin: 06/26/19 20:55 Dose: 1 mg Lorazepam (Ativan) 1 - 2 mg IVPUSH Q4H PRN PRN Reason: Agitation Last Admin: 06/26/19 23:41 Dose: 2 mg Lorazepam (Ativan) 1 - 3 mg IV ASDIRECTED [facility]; Protocol Methylprednisolone Sodium Succinate (Solu-Medrol) 125 mg IV ONETIME ONE Stop: 06/26/19 20:31 Last Admin: 06/26/19 21:06 Dose: 125 mg Methylprednisolone Sodium Succinate (Solu-Medrol) 62.5 mg IV Q6H [facility] Last Admin: 06/27/19 01:57 Dose: 62.5 mg Nitroglycerin (Nitrostat) 0.4 mg SL NOW STA Stop: 06/26/19 17:39 Last Admin: 06/26/19 18:15 Dose: 0.4 mg Pantoprazole Sodium (Protonix Iv) 40 mg IV Q12H [facility] Last Admin: 06/26/19 21:07 Dose: 40 mg Sodium Chloride (Saline Flush) 10 ml FLUSH ASDIRECTED PRN PRN Reason: Keep Vein Open Last Admin: 06/26/19 18:26 Dose: 10 ml - Exam Quality Assessment: Supplemental Oxygen General: Alert, Oriented, Cooperative, Mild Distress HEENT: No: Mucous Membr. Moist/[place] (dry), Scleral Icterus Neck: Supple Lungs: Rhonchi (diffuse ). No: Normal Respiratory Effort (increased work of breathing ), Wheezing Cardiovascular: Regular Rhythm, Tachycardia GI/Abdominal Exam: Soft, No Distention Extremities: Pedal Edema. No: Increased Warmth Skin: Warm, Dry Psy/Mental Status: Alert, Anxious. No: Agitated Sepsis Event Note - Evaluation Sepsis Screening Result: No Definite Risk - Focused Exam Vital Signs: Vital Signs Temp Pulse Resp BP Pulse Ox 06/27/19 06:57 115 H 06/27/19 06:00 23 H 187/78 H 88 L 06/27/19 04:00 36.7 C 25 H 158/84 H 87 L 06/27/19 02:36 90 L 06/27/19 01:12 90 L 06/27/19 01:09 91 L 06/26/19 23:24 35.3 C L 99 20 138/62 95 Date Exam was Performed: 06/27/19 Time Exam was Performed: 12:38 - Problem List Review Problem List Initiated/Reviewed/Updated: Yes - My Orders Last 24 Hours: My Active Orders 06/27/19 03:07 BIPAP Adult [RT BiPAP/CPAP] [RC] ASDIRECTED 06/27/19 03:09 Transfer Patient (Change bed) [ADT] Routine Albuterol [Proventil Neb Soln] 2.5 mg NEB Q2H PRN 06/27/19 03:15 LORazepam [Ativan] 1 - 3 mg IV ASDIRECTED LORazepam [Ativan] 1 - 3 mg PO ASDIRECTED 06/27/19 03:24 Blood Glucose Check, Bedside [RC] QIDACANDBED 06/27/19 07:00 Insulin Lispro [HumaLOG] See Protocol SUBCUT QIDACANDBED 06/27/19 07:30 Pantoprazole [ProTONIX] 40 mg PO ACBREAKFAST 06/27/19 08:00 metFORMIN [Glucophage] 1,000 mg PO BIDMEALS 06/27/19 09:00 Folic Acid 1 mg PO DAILY Thiamine [Vitamin B-1] 100 mg PO DAILY 06/27/19 09:18 BASIC METABOLIC PANEL,BMP [CHEM] Urgent CBC W/O DIFF,HEMOGRAM [HEME] Urgent (1) 06/27/19 09:19 MAGNESIUM [CHEM] Urgent Convert IV to Saline Lock [OM.PC] Routine 06/27/19 14:00 Gabapentin [Neurontin] 400 mg PO TID 06/28/19 05:00 BASIC METABOLIC PANEL,BMP [CHEM] Timed CBC W/O DIFF,HEMOGRAM [HEME] Timed (1) - Plan Plan:: ASSESSMENT AND PLAN- ACUTE BRONCHITIS WITH ACUTE COPD EXACERBATION-wheezing is better with steroids and nebulizers. Still requiring 4 L of supplemental oxygen but seems to be slowly improving. -Doxycycline 100mg every 12 hours -transition to prednisone 40 mg daily starting today -Duo-neb scheduled every 6 hours -Albuterol nebs every 4 hours as needed ALCOHOL WITHDRAWAL-seems to be progressing over the last few hours. Prominent symptoms are diaphoresis and tremor. No history of seizures but he does have a history of significant hallucinations and delirium tremens. -Pain and nausea medication as needed -CIWAA protocol with lorazepam -Protonix 40 mg p.o. twice daily -Encourage oral intake TOBACCO DEPENDENCE- -Nicotine patch DIABETES TYPE 2-moderate elevation of blood sugars. -blood glucose before meals and at bedtime -Insulin high dose sliding scale coverage -Lantus 30 mg subcut. at bedtime MAINTENANCE ISSUES -DVT prophylaxis- SCD -GI prophylaxis- IV Protonix 40 mg every 12 hours -Samuel catheter- not indicated -Nutrition- consistent carb diet DISPOSITION-anticipate discharge to home after the hospital stay. PRIMARY CARE PROVIDER-Wayne Padgett, [place] Santana Lombardo MD
--- NOTE | 2019-06-27 09:46 | CR ---
CHEST: 2 view CLINICAL HISTORY:SOB COMPARISON:None FINDINGS: Heart size is normal. Pulmonary vascularity appears mildly cephalized. There is mild prominence in interstitial markings. No alveolar infiltrate is identified. There are no effusions Impression: Mild vascular cephalization may represent some pulmonary venous hypertension. This may be chronic Mild prominence of the interstitial markings. This can be seen with a pneumonitis. Some of this could be chronic also.
[2019-06-27] MEDS: Doxycycline 100 MG in Sodium Chloride 0.9% 100 ML IV SCH (10:22)
[2019-06-27] MEDS ORDERED: Magnesium Sulfate/Water 2 GM in Premix Bag 1 BAG IV SCH (12:00)
[2019-06-27] MEDS ORDERED: Insulin Lispro 100 Unit/ML 3 ML KwikPen SUBCUT ONE (12:22)
[2019-06-27] MEDS ORDERED: predniSONE 20 MG Tab PO ONE (12:30)
--- NOTE | 2019-06-27 12:38 | PCM.DCSUM1 ---
Discharge Summary - Hospital Course Brief History: 58-year-old male with history of insulin-dependent diabetes, tobacco dependence with COPD, obesity as well as a history of alcohol dependence who presented last night for evaluation and possible transfer to detox. In the emergency room he was found to be hypoxic and was admitted to the hospital for management of acute bronchitis with an acute COPD exacerbation. Diagnosis: Stroke: No - Discharge Data Discharge Date: 06/27/19 Discharge Disposition: DC/Tfer to Acute Hospital 02 Condition: Stable - Referral to Home Health Primary Care Physician: PCP None - Patient Summary/Data Consults: Consultations 06/26/19 20:30 Consult to Spiritual Care [CONS] Routine Hospital Course: Chester was brought to the emergency room last night by his father. The plan is for him to be cleared to go to detox. While he was in the emergency room he was noted to be hypoxic with oxygen saturations in the low 80s. This did improve with supplemental oxygen. Chest x-ray did not show pneumonia. Laboratory studies revealed a normal white blood cell count with a normal differential. Hemoglobin was elevated at 18. There was some evidence for dehydration with a mildly elevated anion gap. Alcohol level was 359. Drug screen was clean. He was very wheezy. He was started on doxycycline and IV Solu-Medrol and admitted to the hospital for management of acute bronchitis with an exacerbation of COPD. Overnight he did have a slight decline in his respiratory status and was up to 6 L of oxygen for a while but did improve with some nebulizers. We did move him down to the intensive care unit and he was placed on noninvasive ventilation with arterial blood gases showing a mild reduction in his pH at 7.3 and a PCO2 of 53. He utilize the noninvasive ventilation for about 2 hours. Since that time his oxygenation has been stable with just nasal cannula. He is currently receiving 4 L of oxygen and his saturations are in the mid 90s. His shortness of breath and wheezing are quite but better this morning. He does have some hyperglycemia with the steroids and has been receiving extra supplemental insulin. Respiratory status seems to be improved today. Alcohol withdrawal however seems to be worsening. He is now tremulous and diaphoretic. He has received both IV and oral lorazepam. With his declining clinical status and insurance limitations (limited to [facility]) he will be transferred to [facility] [place] for intensive care unit admission and further management. - Patient Instructions Diet: Diabetic Diet Activity: Bedrest Other/Special Instructions: Transfer to [facility] - alcohol withdrawal delirium. Dr King accepting - Discharge Plan *PRESCRIPTION DRUG MONITORING PROGRAM REVIEWED*: Not Applicable *COPY OF PRESCRIPTION DRUG MONITORING REPORT IN PATIENT BRAN: Not Applicable Home Medications: Home Meds Aspirin 325 mg PO DAILY 06/26/19 [History] Insulin Glarg,Human.Rec.Analog [Lantus Solostar] 0 unit SUBCUT DAILY 06/26/19 [ History] Insulin Lispro [HumaLOG] 1 unit SQ ACBED 06/26/19 [History] metFORMIN [Glucophage] 1,000 mg PO BIDMEALS 06/26/19 [History] Oxygen Therapy Mode: Nasal Cannula Oxygen Flow Rate (L/min): 4 Forms: ED Department Discharge Referrals: Hunter Joseph MD [Ordering Only Provider] - - Discharge Summary/Plan Comment DC Time >30 min.: Yes (45-transfer to acute hospital) - Patient Data Vitals - Most Recent: Last Vital Signs Temp 36.8 C 06/27/19 11:00 Pulse 118 H 06/27/19 11:00 Resp 29 H 06/27/19 11:00 BP 167/83 H 06/27/19 11:00 Pulse Ox 91 L 06/27/19 11:00 Weight - Most Recent: 130.776 kg I&O - Last 24 hours: Intake & Output 06/26/19 06/27/19 06/27/19 22:59 06:59 14:59 Intake Total 905 1860 Balance 905 1860 Lab Results - Last 24 hrs: Laboratory Results - last 24 hr 06/26/19 06/26/19 06/26/19 Range/Units 18:03 18:03 18:03 WBC 9.4 (4.5-11.0) K/uL RBC 6.37 H (4.30-5.90) M/uL Hgb 18.3 H* D (12.0-15.0) g/dL Hct 53.8 (40.0-54.0) % MCV 85 (80-98) fL MCH 29 (27-31) pg MCHC 34 (32-36) % Plt Count 334 (150-400) K/uL Neut % (Auto) 59 (36-66) % Lymph % (Auto) 31 (24-44) % [place] % (Auto) 6 (2-6) % Eos % (Auto) 2 (2-4) % Baso % (Auto) 1 (0-1) % PT 9.9 (9.5-12.0) sec INR 0.91 (0.80-1.20) Puncture Site ABG pH (7.350-7.450) ABG pCO2 (35.0-42.0) mmHg ABG pO2 (75.0-100.0) mmHg ABG HCO3 (22.0-26.0) mmol/L ABG Total CO2 (23.0-27.0) mmol/L ABG O2 Saturation (95.0-98.0) % ABG O2 Content (15.0-23.0) %vol ABG Base Excess mm/L ABG Hemoglobin (13.5-18.0) g/dL ABG Oxyhemoglobin % ABG Carboxyhemoglobin (0.0-1.6) % ABG Methemoglobin % O2 Delivery Device Oxygen Flow Rate L Sodium 137 L (140-148) mmol/L Potassium 4.1 (3.6-5.2) mmol/L Chloride 95 L (100-108) mmol/L Carbon Dioxide 29 (21-32) mmol/L Anion Gap 17.1 H (5.0-14.0) mmol/L BUN 15 D (7-18) mg/dL Creatinine 0.9 (0.8-1.3) mg/dL Est Cr Clr Drug Dosing 99.40 mL/min Estimated GFR (MDRD) > 60 (>60) Glucose 140 H (74-106) mg/dL Hemoglobin A1c (4.5-6.2) % Calcium 8.7 (8.5-10.1) mg/dL Magnesium (1.8-2.4) mg/dL Total Bilirubin 0.2 (0.2-1.0) mg/dL AST 24 (15-37) U/L ALT 30 (12-78) U/L Alkaline Phosphatase 95 (46-116) U/L Troponin I < 0.017 (0.000-0.056) ng/mL NT-Pro-B Natriuret Pep 43 (5-125) pg/mL Total Protein 7.4 (6.4-8.2) g/dL Albumin 3.5 (3.4-5.0) g/dL Globulin 3.9 H (2.3-3.5) g/dL Albumin/Globulin Ratio 0.9 L (1.2-2.2) Urine Color (YELLOW) Urine Appearance (CLEAR) Urine pH (5.0-8.0) Ur Specific [place] (1.008-1.030) Urine Protein (NEGATIVE) mg/dL Urine Glucose (UA) (NEGATIVE) mg/dL Urine Ketones (NEGATIVE) mg/dL Urine Occult Blood (NEGATIVE) Urine Nitrite (NEGATIVE) Urine Bilirubin (NEGATIVE) Urine Urobilinogen (0.2-1.0) EU/dL Ur Leukocyte Esterase (NEGATIVE) Urine RBC (0-5) Urine WBC (0-5) Ur Epithelial Cells Amorphous Sediment Urine Bacteria Urine Mucus Urine Other Urine Opiates Screen (NEGATIVE) Ur Oxycodone Screen (NEGATIVE) Urine Methadone Screen (NEGATIVE) Ur Propoxyphene Screen (NEGATIVE) Ur Barbiturates Screen (NEGATIVE) Ur Tricyclics Screen (NEGATIVE) Ur Phencyclidine Scrn (NEGATIVE) Ur Amphetamine Screen (NEGATIVE) U Methamphetamines Scrn (NEGATIVE) Urine MDMA Screen (NEGATIVE) U Benzodiazepines Scrn (NEGATIVE) U Cocaine Metab Screen (NEGATIVE) U Marijuana (THC) Screen (NEGATIVE) Ethyl Alcohol mg/dL 06/26/19 06/26/19 06/26/19 Range/Units 18:03 19:57 19:57 WBC (4.5-11.0) K/uL RBC (4.30-5.90) M/uL Hgb (12.0-15.0) g/dL Hct (40.0-54.0) % MCV (80-98) fL MCH (27-31) pg MCHC (32-36) % Plt Count (150-400) K/uL Neut % (Auto) (36-66) % Lymph % (Auto) (24-44) % [place] % (Auto) (2-6) % Eos % (Auto) (2-4) % Baso % (Auto) (0-1) % PT (9.5-12.0) sec INR (0.80-1.20) Puncture Site ABG pH (7.350-7.450) ABG pCO2 (35.0-42.0) mmHg ABG pO2 (75.0-100.0) mmHg ABG HCO3 (22.0-26.0) mmol/L ABG Total CO2 (23.0-27.0) mmol/L ABG O2 Saturation (95.0-98.0) % ABG O2 Content (15.0-23.0) %vol ABG Base Excess mm/L ABG Hemoglobin (13.5-18.0) g/dL ABG Oxyhemoglobin % ABG Carboxyhemoglobin (0.0-1.6) % ABG Methemoglobin % O2 Delivery Device Oxygen Flow Rate L Sodium (140-148) mmol/L Potassium (3.6-5.2) mmol/L Chloride (100-108) mmol/L Carbon Dioxide (21-32) mmol/L Anion Gap (5.0-14.0) mmol/L BUN (7-18) mg/dL Creatinine (0.8-1.3) mg/dL Est Cr Clr Drug Dosing mL/min Estimated GFR (MDRD) (>60) Glucose (74-106) mg/dL Hemoglobin A1c (4.5-6.2) % Calcium (8.5-10.1) mg/dL Magnesium (1.8-2.4) mg/dL Total Bilirubin (0.2-1.0) mg/dL AST (15-37) U/L ALT (12-78) U/L Alkaline Phosphatase (46-116) U/L Troponin I (0.000-0.056) ng/mL NT-Pro-B Natriuret Pep (5-125) pg/mL Total Protein (6.4-8.2) g/dL Albumin (3.4-5.0) g/dL Globulin (2.3-3.5) g/dL Albumin/Globulin Ratio (1.2-2.2) Urine Color Yellow (YELLOW) Urine Appearance Cloudy A (CLEAR) Urine pH 6.0 (5.0-8.0) Ur Specific [place] >= 1.030 (1.008-1.030) Urine Protein >=300 H (NEGATIVE) mg/dL Urine Glucose (UA) Negative (NEGATIVE) mg/dL Urine Ketones 15 H (NEGATIVE) mg/dL Urine Occult Blood Moderate H (NEGATIVE) Urine Nitrite Negative (NEGATIVE) Urine Bilirubin Negative (NEGATIVE) Urine Urobilinogen 0.2 (0.2-1.0) EU/dL Ur Leukocyte Esterase Negative (NEGATIVE) Urine RBC 5-10 H (0-5) Urine WBC 5-10 H (0-5) Ur Epithelial Cells Rare Amorphous Sediment Few Urine Bacteria Many Urine Mucus Rare Urine Other Urine Opiates Screen Negative (NEGATIVE) Ur Oxycodone Screen Negative (NEGATIVE) Urine Methadone Screen Negative (NEGATIVE) Ur Propoxyphene Screen Negative (NEGATIVE) Ur Barbiturates Screen Negative (NEGATIVE) Ur Tricyclics Screen Negative (NEGATIVE) Ur Phencyclidine Scrn Negative (NEGATIVE) Ur Amphetamine Screen Negative (NEGATIVE) U Methamphetamines Scrn Negative (NEGATIVE) Urine MDMA Screen Negative (NEGATIVE) U Benzodiazepines Scrn Negative (NEGATIVE) U Cocaine Metab Screen Negative (NEGATIVE) U Marijuana (THC) Screen Negative (NEGATIVE) Ethyl Alcohol 352 mg/dL 06/26/19 06/27/19 06/27/19 Range/Units 20:30 01:30 09:18 WBC 9.7 (4.5-11.0) K/uL RBC 5.76 (4.30-5.90) M/uL Hgb 16.5 H (12.0-15.0) g/dL Hct 49.1 (40.0-54.0) % MCV 85 (80-98) fL MCH 29 (27-31) pg MCHC 34 (32-36) % Plt Count 295 (150-400) K/uL Neut % (Auto) (36-66) % Lymph % (Auto) (24-44) % [place] % (Auto) (2-6) % Eos % (Auto) (2-4) % Baso % (Auto) (0-1) % PT (9.5-12.0) sec INR (0.80-1.20) Puncture Site R brachial ABG pH 7.314 L (7.350-7.450) ABG pCO2 53.7 H (35.0-42.0) mmHg ABG pO2 70.1 L (75.0-100.0) mmHg ABG HCO3 26.5 H (22.0-26.0) mmol/L ABG Total CO2 22.8 L (23.0-27.0) mmol/L ABG O2 Saturation 88.9 L (95.0-98.0) % ABG O2 Content 21.3 (15.0-23.0) %vol ABG Base Excess -0.5 mm/L ABG Hemoglobin 17.6 (13.5-18.0) g/dL ABG Oxyhemoglobin 86.3 % ABG Carboxyhemoglobin 1.8 H (0.0-1.6) % ABG Methemoglobin 1.1 % O2 Delivery Device Simple mask Oxygen Flow Rate 6.0 L Sodium (140-148) mmol/L Potassium (3.6-5.2) mmol/L Chloride (100-108) mmol/L Carbon Dioxide (21-32) mmol/L Anion Gap (5.0-14.0) mmol/L BUN (7-18) mg/dL Creatinine (0.8-1.3) mg/dL Est Cr Clr Drug Dosing mL/min Estimated GFR (MDRD) (>60) Glucose (74-106) mg/dL Hemoglobin A1c 8.5 H (4.5-6.2) % Calcium (8.5-10.1) mg/dL Magnesium (1.8-2.4) mg/dL Total Bilirubin (0.2-1.0) mg/dL AST (15-37) U/L ALT (12-78) U/L Alkaline Phosphatase (46-116) U/L Troponin I (0.000-0.056) ng/mL NT-Pro-B Natriuret Pep (5-125) pg/mL Total Protein (6.4-8.2) g/dL Albumin (3.4-5.0) g/dL Globulin (2.3-3.5) g/dL Albumin/Globulin Ratio (1.2-2.2) Urine Color (YELLOW) Urine Appearance (CLEAR) Urine pH (5.0-8.0) Ur Specific [place] (1.008-1.030) Urine Protein (NEGATIVE) mg/dL Urine Glucose (UA) (NEGATIVE) mg/dL Urine Ketones (NEGATIVE) mg/dL Urine Occult Blood (NEGATIVE) Urine Nitrite (NEGATIVE) Urine Bilirubin (NEGATIVE) Urine Urobilinogen (0.2-1.0) EU/dL Ur Leukocyte Esterase (NEGATIVE) Urine RBC (0-5) Urine WBC (0-5) Ur Epithelial Cells Amorphous Sediment Urine Bacteria Urine Mucus Urine Other Urine Opiates Screen (NEGATIVE) Ur Oxycodone Screen (NEGATIVE) Urine Methadone Screen (NEGATIVE) Ur Propoxyphene Screen (NEGATIVE) Ur Barbiturates Screen (NEGATIVE) Ur Tricyclics Screen (NEGATIVE) Ur Phencyclidine Scrn (NEGATIVE) Ur Amphetamine Screen (NEGATIVE) U Methamphetamines Scrn (NEGATIVE) Urine MDMA Screen (NEGATIVE) U Benzodiazepines Scrn (NEGATIVE) U Cocaine Metab Screen (NEGATIVE) U Marijuana (THC) Screen (NEGATIVE) Ethyl Alcohol mg/dL 06/27/19 06/27/19 Range/Units 09:18 09:19 WBC (4.5-11.0) K/uL RBC (4.30-5.90) M/uL Hgb (12.0-15.0) g/dL Hct (40.0-54.0) % MCV (80-98) fL MCH (27-31) pg MCHC (32-36) % Plt Count (150-400) K/uL Neut % (Auto) (36-66) % Lymph % (Auto) (24-44) % [place] % (Auto) (2-6) % Eos % (Auto) (2-4) % Baso % (Auto) (0-1) % PT (9.5-12.0) sec INR (0.80-1.20) Puncture Site ABG pH (7.350-7.450) ABG pCO2 (35.0-42.0) mmHg ABG pO2 (75.0-100.0) mmHg ABG HCO3 (22.0-26.0) mmol/L ABG Total CO2 (23.0-27.0) mmol/L ABG O2 Saturation (95.0-98.0) % ABG O2 Content (15.0-23.0) %vol ABG Base Excess mm/L ABG Hemoglobin (13.5-18.0) g/dL ABG Oxyhemoglobin % ABG Carboxyhemoglobin (0.0-1.6) % ABG Methemoglobin % O2 Delivery Device Oxygen Flow Rate L Sodium 133 L (140-148) mmol/L Potassium 5.0 (3.6-5.2) mmol/L Chloride 94 L (100-108) mmol/L Carbon Dioxide 23 (21-32) mmol/L Anion Gap 21.0 H (5.0-14.0) mmol/L BUN 22 H (7-18) mg/dL Creatinine 1.0 (0.8-1.3) mg/dL Est Cr Clr Drug Dosing 78.85 mL/min Estimated GFR (MDRD) > 60 (>60) Glucose 262 H (74-106) mg/dL Hemoglobin A1c (4.5-6.2) % Calcium 7.8 L (8.5-10.1) mg/dL Magnesium 1.3 L (1.8-2.4) mg/dL Total Bilirubin (0.2-1.0) mg/dL AST (15-37) U/L ALT (12-78) U/L Alkaline Phosphatase (46-116) U/L Troponin I (0.000-0.056) ng/mL NT-Pro-B Natriuret Pep (5-125) pg/mL Total Protein (6.4-8.2) g/dL Albumin (3.4-5.0) g/dL Globulin (2.3-3.5) g/dL Albumin/Globulin Ratio (1.2-2.2) Urine Color (YELLOW) Urine Appearance (CLEAR) Urine pH (5.0-8.0) Ur Specific [place] (1.008-1.030) Urine Protein (NEGATIVE) mg/dL Urine Glucose (UA) (NEGATIVE) mg/dL Urine Ketones (NEGATIVE) mg/dL Urine Occult Blood (NEGATIVE) Urine Nitrite (NEGATIVE) Urine Bilirubin (NEGATIVE) Urine Urobilinogen (0.2-1.0) EU/dL Ur Leukocyte Esterase (NEGATIVE) Urine RBC (0-5) Urine WBC (0-5) Ur Epithelial Cells Amorphous Sediment Urine Bacteria Urine Mucus Urine Other Urine Opiates Screen (NEGATIVE) Ur Oxycodone Screen (NEGATIVE) Urine Methadone Screen (NEGATIVE) Ur Propoxyphene Screen (NEGATIVE) Ur Barbiturates Screen (NEGATIVE) Ur Tricyclics Screen (NEGATIVE) Ur Phencyclidine Scrn (NEGATIVE) Ur Amphetamine Screen (NEGATIVE) U Methamphetamines Scrn (NEGATIVE) Urine MDMA Screen (NEGATIVE) U Benzodiazepines Scrn (NEGATIVE) U Cocaine Metab Screen (NEGATIVE) U Marijuana (THC) Screen (NEGATIVE) Ethyl Alcohol mg/dL Med Orders - Current: Current Medications Acetaminophen (Tylenol) 650 mg PO Q4H PRN PRN Reason: Pain (Mild 1-3)/fever Hydrocodone Bitart/Acetaminophen ([place] 325-5 Mg) 1 tab PO Q4H PRN PRN Reason: Pain (moderate 4-6) Last Admin: 06/27/19 03:46 Dose: 1 tab Albuterol (Proventil Neb Soln) 2.5 mg NEB Q2H PRN PRN Reason: Shortness Of Breath/wheezing Last Admin: 06/27/19 08:58 Dose: 2.5 mg Albuterol/Ipratropium (Duoneb 3.0-0.5 Mg/3 Ml) 3 ml NEB QIDRT [facility] Last Admin: 06/27/19 10:45 Dose: 3 ml Aspirin (Ecotrin) 325 mg PO DAILY [facility] Last Admin: 06/27/19 08:00 Dose: 325 mg Bisacodyl (Dulcolax) 5 mg PO DAILY PRN PRN Reason: Constipation Docusate Sodium (Colace) 100 mg PO BID PRN PRN Reason: Constipation Folic Acid (Folic Acid) 1 mg PO DAILY [facility] Last Admin: 06/27/19 08:00 Dose: 1 mg Gabapentin (Neurontin) 400 mg PO TID [facility] Doxycycline Hyclate 100 mg/ (Sodium Chloride) 100 mls @ 100 mls/hr IV Q12H [facility] Last Admin: 06/27/19 10:22 Dose: 100 mls/hr Magnesium Sulfate 2 gm/ Premix 50 mls @ 25 mls/hr IV Q6H [facility] Stop: 06/28/19 07:59 Last Admin: 06/27/19 11:30 Dose: 25 mls/hr Insulin Human Lispro (Humalog) 0 unit SUBCUT QIDACANDBED [facility]; Protocol Last Admin: 06/27/19 07:53 Dose: 4 unit Lorazepam (Ativan) 1 - 3 mg PO ASDIRECTED [facility]; Protocol Last Admin: 06/27/19 03:46 Dose: 2 mg Lorazepam (Ativan) 1 - 3 mg IV ASDIRECTED [facility]; Protocol Last Admin: 06/27/19 11:46 Dose: 2 mg Metformin HCl (Glucophage) 1,000 mg PO BIDMEALS [facility] Last Admin: 06/27/19 07:51 Dose: 1,000 mg Morphine Sulfate (Morphine) 2 mg IVPUSH Q2H PRN PRN Reason: Pain (severe 7-10) Last Admin: 06/27/19 03:47 Dose: 2 mg Nicotine (Habitrol) 21 mg TRDERM DAILY [facility] Last Admin: 06/27/19 08:01 Dose: 21 mg Ondansetron HCl (Zofran Odt) 4 mg PO Q6H PRN PRN Reason: Nausea able to take PO Ondansetron HCl (Zofran) 4 mg IV Q4H PRN PRN Reason: Nausea/Vomiting Pantoprazole Sodium (Protonix) 40 mg PO ACBREAKFAST [facility] Last Admin: 06/27/19 07:50 Dose: 40 mg Thiamine HCl (Vitamin B-1) 100 mg PO DAILY [facility] Last Admin: 06/27/19 08:00 Dose: 100 mg Discontinued Medications Albuterol (Proventil Neb Soln) 2.5 mg NEB Q4H PRN PRN Reason: Shortness Of Breath/wheezing Last Admin: 06/27/19 01:06 Dose: 2.5 mg Albuterol (Proventil Neb Soln) 2.5 mg NEB ONETIME ONE Stop: 06/27/19 01:46 Last Admin: 06/27/19 01:57 Dose: 2.5 mg Fentanyl (Sublimaze) 50 mcg IVPUSH ONETIME ONE Stop: 06/26/19 17:41 Last Admin: 06/26/19 18:21 Dose: 50 mcg Gabapentin (Neurontin) 200 mg PO Q6H [facility] Last Admin: 06/26/19 23:31 Dose: 200 mg Gabapentin (Neurontin) 400 mg PO TID [facility] Last Admin: 06/27/19 07:53 Dose: 400 mg Sodium Chloride (Normal Saline) 1,000 mls @ 125 mls/hr IV ASDIRECTED [facility] Last Admin: 06/27/19 05:27 Dose: 125 mls/hr Insulin Glargine (Lantus Solostar) 30 units SUBCUT BEDTIME [facility] Last Admin: 06/26/19 21:37 Dose: 30 units Insulin Human Lispro (Humalog) 0 unit SUBCUT QIDACANDBED [facility]; Protocol Last Admin: 06/26/19 21:21 Dose: Not Given Insulin Human Lispro (Humalog) 10 unit SUBCUT ONETIME ONE Stop: 06/27/19 12:23 Ketorolac Tromethamine (Toradol) 30 mg IVPUSH ONETIME ONE Stop: 06/26/19 18:43 Last Admin: 06/26/19 18:50 Dose: 30 mg Lorazepam (Ativan) 1 mg IVPUSH ONETIME ONE Stop: 06/26/19 19:34 Last Admin: 06/26/19 20:55 Dose: 1 mg Lorazepam (Ativan) 1 - 2 mg IVPUSH Q4H PRN PRN Reason: Agitation Last Admin: 06/26/19 23:41 Dose: 2 mg Lorazepam (Ativan) 1 - 3 mg IV ASDIRECTED [facility]; Protocol Methylprednisolone Sodium Succinate (Solu-Medrol) 125 mg IV ONETIME ONE Stop: 06/26/19 20:31 Last Admin: 06/26/19 21:06 Dose: 125 mg Methylprednisolone Sodium Succinate (Solu-Medrol) 62.5 mg IV Q6H [facility] Last Admin: 06/27/19 01:57 Dose: 62.5 mg Methylprednisolone Sodium Succinate (Solu-Medrol) 62.5 mg IV Q6H [facility] Last Admin: 06/27/19 07:50 Dose: 62.5 mg Nitroglycerin (Nitrostat) 0.4 mg SL NOW STA Stop: 06/26/19 17:39 Last Admin: 06/26/19 18:15 Dose: 0.4 mg Pantoprazole Sodium (Protonix Iv) 40 mg IV Q12H [facility] Last Admin: 06/26/19 21:07 Dose: 40 mg Prednisone (Prednisone) 40 mg PO ONETIME ONE Stop: 06/27/19 12:31 Sodium Chloride (Saline Flush) 10 ml FLUSH ASDIRECTED PRN PRN Reason: Keep Vein Open Last Admin: 06/26/19 18:26 Dose: 10 ml - Exam Quality Assessment: Reports: Supplemental Oxygen General: Reports: Alert, Oriented, Cooperative, Moderate Distress Lungs: Reports: Normal Respiratory Effort, Rhonchi Cardiovascular: Reports: Regular Rhythm, Tachycardia GI/Abdominal Exam: Soft, No Distention Extremities: Pedal Edema Psy/Mental Status: Reports: Alert, Anxious
== END 2019-06-27 13:51 | DRG 140 ==
LOC: JP.ED 16:43 → JP.MS 18:47 → JP.ICU 06-27 03:09
PROVIDERS: ADMIT Internal Medicine; ATTEND Internal Medicine
DX: J44.1 Chronic obstructive pulmonary disease with (acute) exacerbation (principal); J44.0 Chronic obstructive pulmonary disease with (acute) lower respiratory infection; J20.9 Acute bronchitis, unspecified; Z79.4 Long term (current) use of insulin; F17.210 Nicotine dependence, cigarettes, uncomplicated; E66.9 Obesity, unspecified; F10.21 Alcohol dependence, in remission; E86.0 Dehydration; Y90.8 Blood alcohol level of 240 mg/100 ml or more; E11.65 Type 2 diabetes mellitus with hyperglycemia; T38.0X5A Adverse effect of glucocorticoids and synthetic analogues, initial encounter; F10.231 Alcohol dependence with withdrawal delirium; Z79.82 Long term (current) use of aspirin; Z91.048 Other nonmedicinal substance allergy status; I10 Essential (primary) hypertension; Z87.442 Personal history of urinary calculi; G89.29 Other chronic pain; M54.9 Dorsalgia, unspecified; Z68.39 Body mass index [BMI] 39.0-39.9, adult
CPT/HCPCS: 36415; 36600; 71046; 71046-26; 80048; 80053; 80305-QW; 80307; 81001; 82803; 82962; 83036; 83735; 83880; 84484; 85025; 85027; 85610; 93005; 94640; 94660; 96374; 99285-25; A9270-GY; C9113; J1815; J1815-GY; J1885; J2060; J2270; J2920; J2930; J3010; J3475; J3490; J7030; J7050; J7620-GY

== ENCOUNTER 2021-02-15 15:00 | Inpatient (IN) | payer BC, OTHER ==
[2021-02-15] MEDS ORDERED: Aspirin 81 MG Tab.Chew PO ONE (15:56)
[2021-02-15] MEDS ORDERED: Sodium Chloride 0.9% 10 ML Syringe FLUSH PRN ×2 (15:56→20:54)
--- NOTE | 2021-02-15 16:04 | EDM.PDOC ---
ED HPI GENERAL MEDICAL PROBLEM - General Chief Complaint: Chest Pain Stated Complaint: MEDICAL [facility] Time Seen by Provider: 02/15/21 15:53 Source of Information: Reports: Patient, Police, RN Notes Reviewed History Limitations: Reports: Intoxication, Other (Patient brought in per EMS, no report received as [facility] ER in [place] due to full capacity, EMS took patient to ER lobby in a wheelchair in custody of deputy. Patient brought back as soon as ER bed available, noted O2 saturation 76% on room air. Patient speaking full sentences, awake. ) - History of Present Illness INITIAL COMMENTS - FREE TEXT/NARRATIVE: Chester presents today via EMS, was placed in wheelchair per EMS and brought to lobby per EMS in police custody. Chester reports he is here because he has chest pain and was driving to go to detox but he got pulled over by the police. He states his chest pain started at 3pm today. He states he has had a harder time breathing lately. He reports he has had COVID about 3 to 4 weeks ago and was recently diagnosed with lung cancer. He states he uses oxygen 2L at night but none during the day. He states he lives with his parents. He reports he drinks hard liquor and is not sure what time he had his last drink. He denies any injury or trauma. Chester is speaking in full sentences, speech somewhat slurred, ETOH on board. He states the chest pain comes and goes and points to his midsternal area. GCS 14 Tobacco use of 3ppd. Middle Chest Pain Score (Numeric/FACES): 5 - Related Data Allergies Allergy/AdvReac Type Severity Reaction Status Date / Time oyster extract Allergy Shortness Verified 02/15/21 15:57 of Breath Home Meds: Home Meds Aspirin 325 mg PO DAILY 06/26/19 [History] Insulin Glarg,Human.Rec.Analog [Lantus Solostar] 26 unit SUBCUT BEDTIME 06/26/19 [History] Insulin Lispro [HumaLOG] 10 unit SQ WITHDINNER 06/26/19 [History] metFORMIN [Glucophage] 1,000 mg PO BIDMEALS 06/26/19 [History] Past Medical History HEENT History: Reports: Cataract Cardiovascular History: Reports: Hypertension Respiratory History: Reports: COPD Gastrointestinal History: Reports: Other (See Below) Other Gastrointestinal History: hx of ulcers Genitourinary History: Reports: Renal Calculus, Other (See Below) Other Genitourinary History: urgency Musculoskeletal History: Reports: Back Pain, Chronic Neurological History: Reports: Brain Injury Psychiatric History: Reports: Addiction Endocrine/Metabolic History: Reports: Diabetes, Type I Dermatologic History: Reports: Other (See Below) Other Dermatologic History: scratch wounds form nerves - Past Surgical History Head Surgeries/Procedures: Reports: None HEENT Surgical History: Reports: None Cardiovascular Surgical History: Reports: None Respiratory Surgical History: Reports: None GI Surgical History: Reports: None Endocrine Surgical History: Reports: None Musculoskeletal Surgical History: Reports: None Dermatological Surgical History: Reports: None Social & Family History - Family History Family Medical History: No Pertinent Family History - Caffeine Use Caffeine Use: Reports: Coffee, Energy Drinks, Soda - Living Situation & Occupation Living situation: Reports: ( of cancer.) Occupation: Other (lives on [address] in [place], [place]. ( 10 miles [place] of [place], [place].)) ED ROS GENERAL - Review of Systems Review Of Systems: See Below Constitutional: Reports: Other (Patient states he was driving to detox but got pulled over and now he has chest pain. ) HEENT: Reports: No Symptoms Respiratory: Reports: Cough, Other (diagnosed with COVID 3 to 4 weeks ago.) Cardiovascular: Reports: Chest Pain, Dyspnea on Exertion. Denies: Blood Pressure Problem, Claudication, Edema, Lightheadedness, Orthopnea, Palpitations, PND, Syncope Endocrine: Reports: No Symptoms GI/Abdominal: Reports: No Symptoms : Reports: No Symptoms Musculoskeletal: Reports: No Symptoms Skin: Reports: No Symptoms Neurological: Reports: Other (intoxicated, ETOH ) Psychiatric: Reports: Other (intoxicated) Hematologic/Lymphatic: Reports: No Symptoms Immunologic: Reports: No Symptoms ED EXAM, GENERAL - Physical Exam Exam: See Below Exam Limited By: Intoxication General Appearance: Mild Distress (dyspnea) Eye Exam: Bilateral Eye: Normal Inspection Ears: Normal External Exam, Normal Canal, Hearing Grossly Normal, Normal TMs Throat/Mouth: Normal Inspection, Normal Lips, Normal Gums, Normal Oropharynx, Normal Voice, No Airway Compromise Head: Atraumatic, Normocephalic Neck: Normal Inspection, Supple, Non-Tender, Full Range of Motion. No: Lymphadenopathy (R), Lymphadenopathy (L) Respiratory/Chest: Chest Non-Tender, Decreased Breath Sounds, Rales, Accessory Muscle Use, Other (O2 saturation when brought to ER room 76%, O2 per nasal cannula applied at 6L O2 saturation up to 91%. ). No: Wheezing, Stridor, Retractions, Splinting Cardiovascular: Normal Peripheral Pulses, Regular Rate, Rhythm, No Gallop, No Murmur, No Rub, Other (2+ edema bilateral lower extremities) Peripheral Pulses: 4+: Radial (L), Radial (R) GI/Abdominal: Normal Bowel Sounds, Soft, Non-Tender, No Organomegaly, No Distention, No Mass. No: Guarding, Rigid, Rebound, Tender (Male) Exam: Deferred Rectal (Males) Exam: Deferred Back Exam: Normal Inspection, Full Range of Motion. No: CVA Tenderness (R), CVA Tenderness (L) Extremities: Normal Range of Motion, Non-Tender, Normal Capillary Refill, Pedal Edema (2+) Neurological: Other (Awake, alert to self, situation. ETOH on board.) Psychiatric: Tearful, Other (intoxicated) Skin Exam: Warm, Dry, Intact, Normal Color, No Rash. No: Increased Warmth, Pallor, Petechiae, Rash, Wound/Incision Lymphatic: No Adenopathy #1 Interpretation EKG Date: 02/15/21 Rhythm: NSR Rate (Beats/Min): 91 P-Wave: Present QRS: Normal ST-T: Normal QT: Normal EKG Interpretation Comments: Flipped T waves flipped in leads AVL, V1, V2 Course - Vital Signs Last Recorded V/S: Last Vital Signs Temp 37.2 C 02/15/21 20:54 Pulse 101 H 02/15/21 20:54 Resp 18 02/15/21 20:54 BP 135/77 02/15/21 20:54 Pulse Ox 90 L 02/15/21 20:54 - Orders/Labs/Meds Orders: Active Orders 24 hr Category Date Time Status Chest 1V Frontal [CR] Stat Exams 02/15/21 15:56 Taken MVI, Adult with Vitamin K [Infuvite Adult] 10 ml Med 02/15/21 19:00 Active Thiamine [Vitamin B-1] 100 mg Folic Acid 1 mg Magnesium Sulfate [Magnesium Sulfate 50%] 3 gm Sodium Chloride 0.9% [Normal Saline] 1,000 ml IV ASDIRECTED EKG 12 Lead [EK] Routine Ther 02/15/21 15:56 Stop Req Medication Orders Acetaminophen (Acetaminophen 325 Mg Tab) 650 mg PO Q4H PRN PRN Reason: Pain (Mild 1-3)/fever Albuterol (Albuterol 0.083% 2.5 Mg/3 Ml Neb Soln) 2.5 mg NEB Q4H PRN PRN Reason: Shortness Of Breath/wheezing Albuterol/Ipratropium (Albuterol/Ipratropium 3.0-0.5 Mg/3 Ml Neb Soln) 3 ml NEB QID ASAF Chlordiazepoxide HCl (Chlordiazepoxide 25 Mg Cap) 25 mg PO Q8H ASAF Dextrose (Glucose Gel 15 Gm In 37.5 Gm Tube) 15 gm PO ONETIME PRN PRN Reason: Hypoglycemia Dextrose/Water (50% Dextrose In Water 50 Ml Syringe) 50 ml IV ONETIME PRN PRN Reason: Hypoglycemia Enoxaparin Sodium (Enoxaparin 40 Mg/0.4 Ml Syringe) 40 mg SUBCUT DAILY [facility] Folic Acid (Folic Acid 1 Mg Tab) 1 mg PO DAILY [facility] Gabapentin (Gabapentin 400 Mg Cap) 400 mg PO Q8H ASAF Stop: 02/19/21 20:55 Multivitamins/Minerals 10 ml/Thiamine HCl 100 mg/ Folic Acid 1 mg/ Magnesium Sulfate 3 gm/ Sodium Chloride 1,017.2 mls @ 150 mls/hr IV ASDIRECTED [facility] Last Admin: 02/15/21 20:33 Dose: 150 mls/hr Documented by: SITZMEL Sodium Chloride (Normal Saline) 1,000 mls @ 125 mls/hr IV ASDIRECTED [facility] Ceftriaxone Sodium 1 gm/ (Sodium Chloride) 50 mls @ 100 mls/hr IV Q24H [facility] Doxycycline Hyclate 100 mg/ (Sodium Chloride) 100 mls @ 100 mls/hr IV Q12HR [facility] Insulin Glargine (Insulin Glargine,Human Rec. Analog 100 Units/Ml 3 Ml Pen) 26 units SUBCUT BEDTIME [facility] Insulin Human Lispro (Insulin Lispro 100 Unit/Ml 3 Ml Kwikpen) 0 unit SUBCUT QIDACANDBED ASAF; Protocol Lorazepam (Lorazepam 1 Mg Tab) 0 mg PO ASDIRECTED ASAF; Protocol Methylprednisolone Sodium Succinate (Methylprednisolone Sodium Succinate 40 Mg/1 Ml Sdv) 40 mg IVPUSH Q8H ASAF Nicotine (Nicotine 21 Mg/24 Hr Patch) 21 mg TRDERM DAILY [facility] Nicotine Polacrilex (Nicotine Polacrilex 2 Mg Gum) 4 mg CHEW Q1H PRN PRN Reason: Other Non-Formulary Medication (Aspirin [Aspirin]) 325 mg PO DAILY [facility] Ondansetron HCl (Ondansetron 4 Mg/2 Ml Sdv) 4 mg IV Q4H PRN PRN Reason: Nausea/Vomiting Polyethylene Glycol (Polyethylene Glycol 3350 Powder 17 Gm Packet) 17 gm PO DAILY PRN PRN Reason: Constipation Sodium Chloride (Sodium Chloride 0.9% 10 Ml Syringe) 10 ml FLUSH ASDIRECTED PRN PRN Reason: Keep Vein Open Thiamine HCl (Thiamine 100 Mg Tab) 100 mg PO DAILY [facility] Labs: Laboratory Tests 02/15/21 02/15/21 02/15/21 Range/Units 15:05 15:05 15:05 WBC 10.9 (4.5-11.0) K/uL RBC 5.60 (4.30-5.90) M/uL Hgb 15.9 H (12.0-15.0) g/dL Hct 46.4 (40.0-54.0) % MCV 83 (80-98) fL MCH 28 (27-31) pg MCHC 34 (32-36) % Plt Count 356 (150-400) K/uL Neut % (Auto) 65.5 (36-66) % Lymph % (Auto) 24.4 (24-44) % Hardin % (Auto) 7.1 H (2-6) % Eos % (Auto) 2.5 (2-4) % Baso % (Auto) 0.5 (0-1) % D-Dimer, Quantitative (0.0-500.0) ng/mL Puncture Site ABG pH (7.350-7.450) ABG pCO2 (35.0-42.0) mmHg ABG pO2 (75.0-100.0) mmHg ABG HCO3 (22.0-26.0) mmol/L ABG Total CO2 (23.0-27.0) mmol/L ABG O2 Saturation (95.0-98.0) % ABG O2 Content (15.0-23.0) %vol ABG Base Excess mm/L ABG Hemoglobin (13.5-18.0) g/dL ABG Oxyhemoglobin % ABG Carboxyhemoglobin (0.0-1.6) % ABG Methemoglobin % Toribio Test O2 Delivery Device Oxygen Flow Rate L Sodium 135 L (140-148) mmol/L Potassium 4.3 (3.6-5.2) mmol/L Chloride 96 L (100-108) mmol/L Carbon Dioxide 29 (21-32) mmol/L Anion Gap 14.3 H (5.0-14.0) mmol/L BUN 10 D (7-18) mg/dL Creatinine 0.7 L (0.8-1.3) mg/dL Est Cr Clr Drug Dosing 124.71 mL/min Estimated GFR (MDRD) > 60 (>60) Glucose 204 H (74-106) mg/dL Lactic Acid 2.8 H (0.4-2.0) mmol/L Calcium 8.3 L (8.5-10.1) mg/dL Total Bilirubin 0.2 (0.2-1.0) mg/dL AST 20 (15-37) U/L ALT 26 (12-78) U/L Alkaline Phosphatase 96 (46-116) U/L Troponin I (0.000-0.056) ng/mL NT-Pro-B Natriuret Pep (5-125) pg/mL Total Protein 7.1 (6.4-8.2) g/dL Albumin 3.2 L (3.4-5.0) g/dL Globulin 3.9 H (2.3-3.5) g/dL Albumin/Globulin Ratio 0.8 L (1.2-2.2) Procalcitonin ng/mL Urine Color (YELLOW) Urine Appearance (CLEAR) Urine pH (5.0-8.0) Ur Specific [place] (1.008-1.030) Urine Protein (NEGATIVE) mg/dL Urine Glucose (UA) (NEGATIVE) mg/dL Urine Ketones (NEGATIVE) mg/dL Urine Occult Blood (NEGATIVE) Urine Nitrite (NEGATIVE) Urine Bilirubin (NEGATIVE) Urine Urobilinogen (0.2-1.0) EU/dL Ur Leukocyte Esterase (NEGATIVE) Urine RBC (0-5) Urine WBC (0-5) Ur Epithelial Cells Amorphous Sediment Urine Bacteria Urine Mucus Urine Opiates Screen (NEGATIVE) Ur Oxycodone Screen (NEGATIVE) Urine Methadone Screen (NEGATIVE) Ur Propoxyphene Screen (NEGATIVE) Ur Barbiturates Screen (NEGATIVE) Ur Tricyclics Screen (NEGATIVE) Ur Phencyclidine Scrn (NEGATIVE) Ur Amphetamine Screen (NEGATIVE) U Methamphetamines Scrn (NEGATIVE) Urine MDMA Screen (NEGATIVE) U Benzodiazepines Scrn (NEGATIVE) U Cocaine Metab Screen (NEGATIVE) U Marijuana (THC) Screen (NEGATIVE) Ethyl Alcohol mg/dL 02/15/21 02/15/21 02/15/21 Range/Units 15:05 15:05 15:05 WBC (4.5-11.0) K/uL RBC (4.30-5.90) M/uL Hgb (12.0-15.0) g/dL Hct (40.0-54.0) % MCV (80-98) fL MCH (27-31) pg MCHC (32-36) % Plt Count (150-400) K/uL Neut % (Auto) (36-66) % Lymph % (Auto) (24-44) % Hardin % (Auto) (2-6) % Eos % (Auto) (2-4) % Baso % (Auto) (0-1) % D-Dimer, Quantitative 2171.25 H (0.0-500.0) ng/mL Puncture Site ABG pH (7.350-7.450) ABG pCO2 (35.0-42.0) mmHg ABG pO2 (75.0-100.0) mmHg ABG HCO3 (22.0-26.0) mmol/L ABG Total CO2 (23.0-27.0) mmol/L ABG O2 Saturation (95.0-98.0) % ABG O2 Content (15.0-23.0) %vol ABG Base Excess mm/L ABG Hemoglobin (13.5-18.0) g/dL ABG Oxyhemoglobin % ABG Carboxyhemoglobin (0.0-1.6) % ABG Methemoglobin % Toribio Test O2 Delivery Device Oxygen Flow Rate L Sodium (140-148) mmol/L Potassium (3.6-5.2) mmol/L Chloride (100-108) mmol/L Carbon Dioxide (21-32) mmol/L Anion Gap (5.0-14.0) mmol/L BUN (7-18) mg/dL Creatinine (0.8-1.3) mg/dL Est Cr Clr Drug Dosing mL/min Estimated GFR (MDRD) (>60) Glucose (74-106) mg/dL Lactic Acid (0.4-2.0) mmol/L Calcium (8.5-10.1) mg/dL Total Bilirubin (0.2-1.0) mg/dL AST (15-37) U/L ALT (12-78) U/L Alkaline Phosphatase (46-116) U/L Troponin I (0.000-0.056) ng/mL NT-Pro-B Natriuret Pep 61 (5-125) pg/mL Total Protein (6.4-8.2) g/dL Albumin (3.4-5.0) g/dL Globulin (2.3-3.5) g/dL Albumin/Globulin Ratio (1.2-2.2) Procalcitonin ng/mL Urine Color (YELLOW) Urine Appearance (CLEAR) Urine pH (5.0-8.0) Ur Specific [place] (1.008-1.030) Urine Protein (NEGATIVE) mg/dL Urine Glucose (UA) (NEGATIVE) mg/dL Urine Ketones (NEGATIVE) mg/dL Urine Occult Blood (NEGATIVE) Urine Nitrite (NEGATIVE) Urine Bilirubin (NEGATIVE) Urine Urobilinogen (0.2-1.0) EU/dL Ur Leukocyte Esterase (NEGATIVE) Urine RBC (0-5) Urine WBC (0-5) Ur Epithelial Cells Amorphous Sediment Urine Bacteria Urine Mucus Urine Opiates Screen (NEGATIVE) Ur Oxycodone Screen (NEGATIVE) Urine Methadone Screen (NEGATIVE) Ur Propoxyphene Screen (NEGATIVE) Ur Barbiturates Screen (NEGATIVE) Ur Tricyclics Screen (NEGATIVE) Ur Phencyclidine Scrn (NEGATIVE) Ur Amphetamine Screen (NEGATIVE) U Methamphetamines Scrn (NEGATIVE) Urine MDMA Screen (NEGATIVE) U Benzodiazepines Scrn (NEGATIVE) U Cocaine Metab Screen (NEGATIVE) U Marijuana (THC) Screen (NEGATIVE) Ethyl Alcohol 346 mg/dL 02/15/21 02/15/21 02/15/21 Range/Units 15:05 16:12 16:23 WBC (4.5-11.0) K/uL RBC (4.30-5.90) M/uL Hgb (12.0-15.0) g/dL Hct (40.0-54.0) % MCV (80-98) fL MCH (27-31) pg MCHC (32-36) % Plt Count (150-400) K/uL Neut % (Auto) (36-66) % Lymph % (Auto) (24-44) % Hardin % (Auto) (2-6) % Eos % (Auto) (2-4) % Baso % (Auto) (0-1) % D-Dimer, Quantitative (0.0-500.0) ng/mL Puncture Site Lt radial ABG pH 7.335 L (7.350-7.450) ABG pCO2 55.7 H (35.0-42.0) mmHg ABG pO2 64.5 L (75.0-100.0) mmHg ABG HCO3 28.9 H (22.0-26.0) mmol/L ABG Total CO2 25.4 (23.0-27.0) mmol/L ABG O2 Saturation 88.6 L (95.0-98.0) % ABG O2 Content 18.7 (15.0-23.0) %vol ABG Base Excess 2.1 mm/L ABG Hemoglobin 15.7 (13.5-18.0) g/dL ABG Oxyhemoglobin 84.7 % ABG Carboxyhemoglobin 3.7 H (0.0-1.6) % ABG Methemoglobin 0.7 % Toribio Test Pass O2 Delivery Device Nasal cannula Oxygen Flow Rate 6.0 L Sodium (140-148) mmol/L Potassium (3.6-5.2) mmol/L Chloride (100-108) mmol/L Carbon Dioxide (21-32) mmol/L Anion Gap (5.0-14.0) mmol/L BUN (7-18) mg/dL Creatinine (0.8-1.3) mg/dL Est Cr Clr Drug Dosing mL/min Estimated GFR (MDRD) (>60) Glucose (74-106) mg/dL Lactic Acid (0.4-2.0) mmol/L Calcium (8.5-10.1) mg/dL Total Bilirubin (0.2-1.0) mg/dL AST (15-37) U/L ALT (12-78) U/L Alkaline Phosphatase (46-116) U/L Troponin I < 0.017 (0.000-0.056) ng/mL NT-Pro-B Natriuret Pep (5-125) pg/mL Total Protein (6.4-8.2) g/dL Albumin (3.4-5.0) g/dL Globulin (2.3-3.5) g/dL Albumin/Globulin Ratio (1.2-2.2) Procalcitonin ng/mL Urine Color Yellow (YELLOW) Urine Appearance Slightly cloudy A (CLEAR) Urine pH 5.5 (5.0-8.0) Ur Specific [place] 1.025 (1.008-1.030) Urine Protein >=300 H (NEGATIVE) mg/dL Urine Glucose (UA) 100 H (NEGATIVE) mg/dL Urine Ketones Negative (NEGATIVE) mg/dL Urine Occult Blood Moderate H (NEGATIVE) Urine Nitrite Negative (NEGATIVE) Urine Bilirubin Negative (NEGATIVE) Urine Urobilinogen 0.2 (0.2-1.0) EU/dL Ur Leukocyte Esterase Negative (NEGATIVE) Urine RBC 0-5 (0-5) Urine WBC 0-5 (0-5) Ur Epithelial Cells Moderate Amorphous Sediment Few Urine Bacteria Rare Urine Mucus Not seen Urine Opiates Screen (NEGATIVE) Ur Oxycodone Screen (NEGATIVE) Urine Methadone Screen (NEGATIVE) Ur Propoxyphene Screen (NEGATIVE) Ur Barbiturates Screen (NEGATIVE) Ur Tricyclics Screen (NEGATIVE) Ur Phencyclidine Scrn (NEGATIVE) Ur Amphetamine Screen (NEGATIVE) U Methamphetamines Scrn (NEGATIVE) Urine MDMA Screen (NEGATIVE) U Benzodiazepines Scrn (NEGATIVE) U Cocaine Metab Screen (NEGATIVE) U Marijuana (THC) Screen (NEGATIVE) Ethyl Alcohol mg/dL 02/15/21 02/15/21 02/15/21 Range/Units 16:23 18:51 18:53 WBC (4.5-11.0) K/uL RBC (4.30-5.90) M/uL Hgb (12.0-15.0) g/dL Hct (40.0-54.0) % MCV (80-98) fL MCH (27-31) pg MCHC (32-36) % Plt Count (150-400) K/uL Neut % (Auto) (36-66) % Lymph % (Auto) (24-44) % Hardin % (Auto) (2-6) % Eos % (Auto) (2-4) % Baso % (Auto) (0-1) % D-Dimer, Quantitative (0.0-500.0) ng/mL Puncture Site ABG pH (7.350-7.450) ABG pCO2 (35.0-42.0) mmHg ABG pO2 (75.0-100.0) mmHg ABG HCO3 (22.0-26.0) mmol/L ABG Total CO2 (23.0-27.0) mmol/L ABG O2 Saturation (95.0-98.0) % ABG O2 Content (15.0-23.0) %vol ABG Base Excess mm/L ABG Hemoglobin (13.5-18.0) g/dL ABG Oxyhemoglobin % ABG Carboxyhemoglobin (0.0-1.6) % ABG Methemoglobin % Toribio Test O2 Delivery Device Oxygen Flow Rate L Sodium (140-148) mmol/L Potassium (3.6-5.2) mmol/L Chloride (100-108) mmol/L Carbon Dioxide (21-32) mmol/L Anion Gap (5.0-14.0) mmol/L BUN (7-18) mg/dL Creatinine (0.8-1.3) mg/dL Est Cr Clr Drug Dosing mL/min Estimated GFR (MDRD) (>60) Glucose (74-106) mg/dL Lactic Acid (0.4-2.0) mmol/L Calcium (8.5-10.1) mg/dL Total Bilirubin (0.2-1.0) mg/dL AST (15-37) U/L ALT (12-78) U/L Alkaline Phosphatase (46-116) U/L Troponin I < 0.017 (0.000-0.056) ng/mL NT-Pro-B Natriuret Pep (5-125) pg/mL Total Protein (6.4-8.2) g/dL Albumin (3.4-5.0) g/dL Globulin (2.3-3.5) g/dL Albumin/Globulin Ratio (1.2-2.2) Procalcitonin < 0.05 ng/mL Urine Color (YELLOW) Urine Appearance (CLEAR) Urine pH (5.0-8.0) Ur Specific [place] (1.008-1.030) Urine Protein (NEGATIVE) mg/dL Urine Glucose (UA) (NEGATIVE) mg/dL Urine Ketones (NEGATIVE) mg/dL Urine Occult Blood (NEGATIVE) Urine Nitrite (NEGATIVE) Urine Bilirubin (NEGATIVE) Urine Urobilinogen (0.2-1.0) EU/dL Ur Leukocyte Esterase (NEGATIVE) Urine RBC (0-5) Urine WBC (0-5) Ur Epithelial Cells Amorphous Sediment Urine Bacteria Urine Mucus Urine Opiates Screen Negative (NEGATIVE) Ur Oxycodone Screen Negative (NEGATIVE) Urine Methadone Screen Negative (NEGATIVE) Ur Propoxyphene Screen Negative (NEGATIVE) Ur Barbiturates Screen Negative (NEGATIVE) Ur Tricyclics Screen Negative (NEGATIVE) Ur Phencyclidine Scrn Negative (NEGATIVE) Ur Amphetamine Screen Negative (NEGATIVE) U Methamphetamines Scrn Negative (NEGATIVE) Urine MDMA Screen Negative (NEGATIVE) U Benzodiazepines Scrn Negative (NEGATIVE) U Cocaine Metab Screen Negative (NEGATIVE) U Marijuana (THC) Screen Negative (NEGATIVE) Ethyl Alcohol mg/dL Meds: Medications Generic Name Dose Route Start Last Admin Trade Name Freq PRN Reason Stop Dose Admin Acetaminophen 650 mg 02/15/21 20:54 Acetaminophen 325 Mg Tab PO Q4H PRN Pain (Mild 1-3)/fever Albuterol 2.5 mg 02/15/21 20:54 Albuterol 0.083% 2.5 Mg/3 Ml Neb Soln NEB Q4H PRN Shortness Of Breath/wheezing Albuterol/Ipratropium 3 ml 02/15/21 22:00 Albuterol/Ipratropium 3.0-0.5 Mg/3 Ml Neb Soln NEB QID ASAF Chlordiazepoxide HCl 25 mg 02/15/21 21:00 Chlordiazepoxide 25 Mg Cap PO Q8H ASAF Dextrose 15 gm 02/15/21 20:54 Glucose Gel 15 Gm In 37.5 Gm Tube PO ONETIME PRN Hypoglycemia Dextrose/Water 50 ml 02/15/21 20:54 50% Dextrose In Water 50 Ml Syringe IV ONETIME PRN Hypoglycemia Enoxaparin Sodium 40 mg 02/15/21 20:54 Enoxaparin 40 Mg/0.4 Ml Syringe SUBCUT DAILY [facility] Folic Acid 1 mg 02/15/21 20:54 Folic Acid 1 Mg Tab PO DAILY [facility] Gabapentin 400 mg 02/15/21 20:54 Gabapentin 400 Mg Cap PO 02/19/21 20:55 Q8H [facility] Multivitamins/Minerals 10 ml/ 1,017.2 mls @ 150 mls/hr 02/15/21 19:00 02/15/21 20:33 Thiamine HCl 100 mg/ Folic IV 150 mls/hr Acid 1 mg/ Magnesium Sulfate 3 ASDIRECTED [facility] Administration gm/ Sodium Chloride Sodium Chloride 1,000 mls @ 125 mls/hr 02/15/21 20:54 Normal Saline IV ASDIRECTED [facility] Ceftriaxone Sodium 1 gm/ 50 mls @ 100 mls/hr 02/15/21 20:54 Sodium Chloride IV Q24H [facility] Doxycycline Hyclate 100 mg/ 100 mls @ 100 mls/hr 02/15/21 20:54 Sodium Chloride IV Q12HR [facility] Insulin Glargine 26 units 02/15/21 21:00 Insulin Glargine,Human Rec. Analog 100 Units/Ml 3 Ml Pen SUBCUT BEDTIME [facility] Insulin Human Lispro 0 unit 02/15/21 20:54 Insulin Lispro 100 Unit/Ml 3 Ml Kwikpen SUBCUT QIDACANDBED [facility] Protocol Lorazepam 0 mg 02/15/21 20:54 Lorazepam 1 Mg Tab PO ASDIRECTED [facility] Protocol Methylprednisolone Sodium Succinate 40 mg 02/15/21 20:54 Methylprednisolone Sodium Succinate 40 Mg/1 Ml Sdv IVPUSH Q8H [facility] Nicotine 21 mg 02/15/21 20:54 Nicotine 21 Mg/24 Hr Patch TRDERM DAILY [facility] Nicotine Polacrilex 4 mg 02/15/21 20:54 Nicotine Polacrilex 2 Mg Gum CHEW Q1H PRN Other Non-Formulary Medication 325 mg 02/16/21 09:00 Aspirin [Aspirin] PO DAILY [facility] Ondansetron HCl 4 mg 02/15/21 20:54 Ondansetron 4 Mg/2 Ml Sdv IV Q4H PRN Nausea/Vomiting Polyethylene Glycol 17 gm 02/15/21 20:54 Polyethylene Glycol 3350 Powder 17 Gm Packet PO DAILY PRN Constipation Sodium Chloride 10 ml 02/15/21 20:54 Sodium Chloride 0.9% 10 Ml Syringe FLUSH ASDIRECTED PRN Keep Vein Open Thiamine HCl 100 mg 02/15/21 20:54 Thiamine 100 Mg Tab PO DAILY [facility] Discontinued Medications Generic Name Dose Route Start Last Admin Trade Name Freq PRN Reason Stop Dose Admin Aspirin 324 mg 02/15/21 15:56 02/15/21 16:15 Aspirin 81 Mg Tab.Chew PO 02/15/21 15:57 324 mg ONETIME ONE Administration Al Hydroxide/Mg Hydroxide 15 0 ml 02/15/21 16:46 02/15/21 16:51 ml/ Lidocaine HCl 15 ml PO 02/15/21 16:47 30 ml ONETIME ONE Administration Famotidine 20 mg 02/15/21 16:46 02/15/21 16:54 Famotidine 20 Mg/2 Ml Sdv IVPUSH 02/15/21 16:47 20 mg ONETIME ONE Administration Sodium Chloride 100 mls @ 3.5 mls/sec 02/15/21 16:45 02/15/21 17:14 Normal Saline IV 4 mls/sec ASDIRECTED ASAF Administration Iopamidol 100 ml 02/15/21 16:45 02/15/21 17:14 Iopamidol 755 Mg/Ml 100 Ml Bottle IV 100 ml . DIRECTED ASAF Administration Lorazepam 0.5 mg 02/15/21 18:01 02/15/21 19:36 Lorazepam 2 Mg/Ml Sdv IVPUSH 02/15/21 18:02 0.5 mg ONETIME ONE Administration Lorazepam 0.5 mg 02/15/21 18:55 Lorazepam 2 Mg/Ml Sdv IVPUSH 02/15/21 18:56 ONETIME ONE Morphine Sulfate 1 mg 02/15/21 16:45 02/15/21 18:18 Morphine 2 Mg/Ml Syringe IVPUSH 02/15/21 16:46 1 mg ONETIME ONE Administration Nitroglycerin 0.4 mg 02/15/21 16:45 02/15/21 17:48 Nitroglycerin 0.4 Mg Tab.Sl SL 02/15/21 16:46 0.4 mg ONETIME ONE Administration Sodium Chloride 10 ml 02/15/21 15:56 02/15/21 16:17 Sodium Chloride 0.9% 10 Ml Syringe FLUSH 10 ml ASDIRECTED PRN Administration Keep Vein Open Sodium Chloride 10 ml 02/15/21 16:43 02/15/21 17:14 Sodium Chloride 0.9% 10 Ml Syringe FLUSH 02/15/21 16:44 10 ml ONETIME ONE Administration 02/15/21 17:00 O2 per nasal cannula down to 4L, O2 saturation maintaining at 90% 02/15/21 18:30 O2 per nasal cannula down to 3L, O2 saturation maintaining at 90% - Radiology Interpretation Free Text/Narrative:: CTA chest shows no signs of PE, few scattered ground glass opacities which could be COVID-19 pneumonia. No other acute findings. Portable chest x-ray reviewed, noted patchy areas bilaterally. Radiologist read pending. - Re-Assessments/Exams Free Text/Narrative Re-Assessment/Exam: 02/15/21 17:[address] for CTA chest. 02/15/21 17:30 O2 down to 4L per nasal cannula. O2 saturation 90%. 02/15/21 18:[address] Ca, he will accept patient for admission. We will start a banana bag. 02/15/21 19:12 Dr. Ca in to evaluate patient. Patient will be admitted inpatient, Dr. Ca will order repeat Lactic acid, COVID swab, procalcitonin. 02/15/21 20:00 Patient care over to Dr. Ca, all his questions were answered. Departure - Departure Time of Disposition: 19:13 Disposition: Admitted As Inpatient 67 Condition: Fair Clinical Impression: Pneumonia, Hypoxia, Alcohol abuse Sepsis Event Note (ED) - Evaluation Sepsis Screening Result: No Definite Risk - Focused Exam Vital Signs: Vital Signs Temp Pulse Resp BP BP Pulse Ox 02/15/21 18:31 98 14 143/65 H 92 L 02/15/21 18:20 22 H 137/66 90 L 02/15/21 17:48 140/80 02/15/21 17:46 15 140/80 88 L 02/15/21 16:28 97 130/79 90 L 02/15/21 16:27 101 H 21 H 130/79 91 L 02/15/21 16:19 20 121/72 91 L 02/15/21 15:56 36.7 C 102 H 18 96/58 L 92 L 02/15/21 15:55 86 L 02/15/21 15:53 36.7 C 102 H 18 96/58 L 78 L - My Orders Last 24 Hours: My Active Orders 02/15/21 15:56 Chest 1V Frontal [CR] Stat EKG 12 Lead [EK] Routine 02/15/21 19:00 MVI, Adult with Vitamin K [Infuvite Adult] 10 ml Thiamine [Vitamin B-1] 100 mg Folic Acid 1 mg Magnesium Sulfate [Magnesium Sulfate 50%] 3 gm Sodium Chloride 0.9% [Normal Saline] 1,000 ml IV ASDIRECTED - Assessment/Plan Last 24 Hours: My Active Orders 02/15/21 15:56 Chest 1V Frontal [CR] Stat EKG 12 Lead [EK] Routine 02/15/21 19:00 MVI, Adult with Vitamin K [Infuvite Adult] 10 ml Thiamine [Vitamin B-1] 100 mg Folic Acid 1 mg Magnesium Sulfate [Magnesium Sulfate 50%] 3 gm Sodium Chloride 0.9% [Normal Saline] 1,000 ml IV ASDIRECTED
[2021-02-15] MEDS ORDERED: Morphine 2 MG/ML SYRINGE IVPUSH ONE (16:45)
[2021-02-15] MEDS ORDERED: Sodium Chloride 0.9% 100 ML IV SCH (16:45)
[2021-02-15] MEDS ORDERED: Nitroglycerin 0.4 MG Tab.SL SL ONE (16:45)
[2021-02-15] MEDS ORDERED: Iopamidol 755 Mg/ML 100 ML Bottle IV SCH (16:45)
[2021-02-15] MEDS ORDERED: Famotidine 20 MG/2 ML SDV IVPUSH ONE (16:46)
[2021-02-15] MEDS ORDERED: Alum Hydrox/Mag Hydrox/Simeth 15 ML, Lidocaine 2% 15 ML PO ONE ×2 (16:46)
[2021-02-15] MEDS: Sodium Chloride 0.9% 10 ML Syringe FLUSH ONE ×2 (16:54→17:14)
[2021-02-15] MEDS ORDERED: LORazepam 2 MG/ML SDV IVPUSH ONE ×2 (18:01→18:55)
--- NOTE | 2021-02-15 18:23 | CRLCT ---
For Patients: As a result of the Century Cures Act, medical imaging exams and procedure reports are released immediately into your electronic medical record. You may view this report before your referring provider. If you have questions, please contact your health care provider. INDICATION : Chest pain. Dyspnea. Elevated D-dimer. TECHNIQUE : CT Scan of the chest. Isovue 100 cc IV COMPARISON : No comparison FINDINGS: Lungs and pleura: Scattered patchy ground-glass opacities right middle lobe and right lower lobe. No pleural effusions. Pulmonary arteries: No definite pulmonary arterial filling defects. Mediastinum: Scattered lymph nodes which are upper normal by size criteria. Coronary artery calcification: Moderate LAD and circumflex. Aorta: Normal calibre possibly some calcification at the valve plane. Upper abdomen: Punctate calcifications in the liver and spleen could suggest previous granulomatous disease. Skeletal: No acute or suspicious skeletal lesions. IMPRESSION: 1. No signs for arterial pulmonary embolus. 2. A few scattered ground-glass opacities. COVID-19 pneumonia could be considered. 3. Coronary calcification and possible calcification at the aortic valve plane. Please note that all CT scans at this facility use dose modulation, iterative reconstruction, and/or weight-based dosing when appropriate to reduce radiation dose to as low as reasonably achievable. Dictated by Daljit Zuñiga MD @ 02/15/2021 6:23:03 PM (Electronically Signed)
[2021-02-15] MEDS ORDERED: MVI, Adult with Vitamin K 10 ML, Thiamine 100 MG, Folic Acid 1 MG, Magnesium Sulfate 3 ... IV SCH ×5 (19:00)
--- NOTE | 2021-02-15 19:45 | PCM.HP.2 ---
H&P History of Present Illness - General Date of Service: 02/15/21 Admit Problem/Dx: Admission Diagnosis/Problem Admission Diagnosis/Problem Hypoxia Source of Information: Patient, Provider, RN Notes Reviewed History Limitations: Reports: Intoxication - History of Present Illness Initial Comments - Free Text/Narative: Mr. Mckeon 60-year-old gentleman who was admitted through the emergency department with increased shortness of breath, hypoxia, and alcohol intoxication, secondary to COPD exacerbation and probable bronchitis. He has a longstanding history of alcohol abuse and reports that he had been abstinent from alcohol use for about 6 months until he started drinking 1 week ago. Over the past week he is consumed 1 quart of hard liquor per day. He apparently was driving himself to detox today when he was pulled over by law enforcement. Because of his shortness of breath and intoxication he was brought into the emergency department for further evaluation. He was noted to have significant hypoxia on arrival on room air with an oxygen saturation of 78%. He has been placed on supplemental oxygen, with good results. He does have oxygen at home which he is supposed to use all of the time but only uses it at night and rarely when drinking. Arterial blood gases obtained on supplemental oxygen do show evidence of CO2 retention. White blood cell count is within normal range, lactic acid level mildly elevated at 2.8. Alcohol level was markedly elevated at 346. CT scan of the chest with PE protocol shows no evidence of pulmonary emboli, there were a few groundglass infiltrates consistent with possible recent Covid infection. Procalcitonin level and COVID-19 testing are pending at the time of this dictation. Middle Chest Pain Score (Numeric/FACES): 5 - Related Data Allergies/Adverse Reactions: Allergies Allergy/AdvReac Type Severity Reaction Status Date / Time oyster extract Allergy Shortness Verified 02/15/21 15:57 of Breath Home Medications: Home Meds Aspirin 325 mg PO DAILY 06/26/19 [History] Insulin Glarg,Human.Rec.Analog [Lantus Solostar] 0 unit SUBCUT DAILY 06/26/19 [History] Insulin Lispro [HumaLOG] 1 unit SQ ACBED 06/26/19 [History] metFORMIN [Glucophage] 1,000 mg PO BIDMEALS 06/26/19 [History] Past Medical History HEENT History: Reports: Cataract Cardiovascular History: Reports: Hypertension Respiratory History: Reports: COPD Gastrointestinal History: Reports: Other (See Below) Other Gastrointestinal History: hx of ulcers Genitourinary History: Reports: Renal Calculus, Other (See Below) Other Genitourinary History: urgency Musculoskeletal History: Reports: Back Pain, Chronic Neurological History: Reports: Brain Injury Psychiatric History: Reports: Addiction Endocrine/Metabolic History: Reports: Diabetes, Type I Dermatologic History: Reports: Other (See Below) Other Dermatologic History: scratch wounds form nerves - Past Surgical History Head Surgeries/Procedures: Reports: None HEENT Surgical History: Reports: None Cardiovascular Surgical History: Reports: None Respiratory Surgical History: Reports: None GI Surgical History: Reports: None Endocrine Surgical History: Reports: None Musculoskeletal Surgical History: Reports: None Dermatological Surgical History: Reports: None Social & Family History - Family History Family Medical History: No Pertinent Family History - Tobacco Use Tobacco Use Status *Q: Heavy Tobacco User Years of Tobacco use: 40 Packs/Tins Daily: 3 - Caffeine Use Caffeine Use: Reports: Coffee, Energy Drinks, Soda - Recreational Drug Use Recreational Drug Use: No - Living Situation & Occupation Living situation: Reports: ( of cancer.) Occupation: Other (lives on [address] in [place], [place]. ( [place] miles [place] of [place], [place].)) H&P Review of Systems - Review of Systems: Review Of Systems: See Below General: Reports: Weakness, Fatigue, Diaphoresis, Decreased Appetite. Denies: Fever, Chills HEENT: Reports: No Symptoms Pulmonary: Reports: Shortness of Breath, Cough, Sputum. Denies: Wheezing, Pleuritic Chest Pain, Hemoptysis Cardiovascular: Reports: Dyspnea on Exertion. Denies: Chest Pain, Palpitations, Orthopnea, PND, Edema, Lightheadedness Gastrointestinal: Reports: No Symptoms Genitourinary: Reports: No Symptoms Musculoskeletal: Reports: No Symptoms Skin: Reports: No Symptoms Psychiatric: Reports: No Symptoms Neurological: Reports: No Symptoms Hematologic/Lymphatic: Reports: No Symptoms Immunologic: Reports: No Symptoms Exam - Exam Exam: See Below - Vital Signs Vital Signs: Last Vital Signs Temp 98.0 F 02/15/21 15:56 Pulse 98 02/15/21 18:31 Resp 14 02/15/21 18:31 BP 143/65 H 02/15/21 18:31 Pulse Ox 92 L 02/15/21 18:31 Weight: 250 lb - Exam Quality Assessment: Supplemental Oxygen, DVT Prophylaxis General: Alert, Oriented, Cooperative, Mild Distress HEENT: Conjunctiva Clear, Hearing Intact, Mucosa Moist & [place], Normal Nasal Septum, Posterior Pharynx Clear, Pupils Equal Neck: Supple, Trachea Midline, +2 Carotid Pulse wo Bruit Lungs: Decreased Breath Sounds, Rhonchi, Wheezing. No: Crackles, Rales Cardiovascular: Regular Rate, Regular Rhythm, Normal S1, Normal S2. No: Systolic Murmur, Diastolic Murmur GI/Abdominal Exam: Soft, Non-Tender, No Organomegaly, No Distention Back Exam: Normal Inspection, Full Range of Motion Extremities: Non-Tender, No Pedal Edema Skin: Warm, Dry, Intact Neurological: Cranial Nerves Intact, Strength Equal Bilateral, Normal Speech, N ormal Tone, Sensation Intact. No: Focal Deficit Neuro Extensive - Mental Status: Alert, Oriented x3, Normal Mood/Affect, Normal Cognition, Memory Intact - Patient Data Lab Results Last 24 hrs: Laboratory Results - last 24 hr 02/15/21 02/15/21 02/15/21 Range/Units 15:05 15:05 15:05 WBC 10.9 (4.5-11.0) K/uL RBC 5.60 (4.30-5.90) M/uL Hgb 15.9 H (12.0-15.0) g/dL Hct 46.4 (40.0-54.0) % MCV 83 (80-98) fL MCH 28 (27-31) pg MCHC 34 (32-36) % Plt Count 356 (150-400) K/uL Neut % (Auto) 65.5 (36-66) % Lymph % (Auto) 24.4 (24-44) % Lipscomb % (Auto) 7.1 H (2-6) % Eos % (Auto) 2.5 (2-4) % Baso % (Auto) 0.5 (0-1) % D-Dimer, Quantitative (0.0-500.0) ng/mL Puncture Site ABG pH (7.350-7.450) ABG pCO2 (35.0-42.0) mmHg ABG pO2 (75.0-100.0) mmHg ABG HCO3 (22.0-26.0) mmol/L ABG Total CO2 (23.0-27.0) mmol/L ABG O2 Saturation (95.0-98.0) % ABG O2 Content (15.0-23.0) %vol ABG Base Excess mm/L ABG Hemoglobin (13.5-18.0) g/dL ABG Oxyhemoglobin % ABG Carboxyhemoglobin (0.0-1.6) % ABG Methemoglobin % Toribio Test O2 Delivery Device Oxygen Flow Rate L Sodium 135 L (140-148) mmol/L Potassium 4.3 (3.6-5.2) mmol/L Chloride 96 L (100-108) mmol/L Carbon Dioxide 29 (21-32) mmol/L Anion Gap 14.3 H (5.0-14.0) mmol/L BUN 10 D (7-18) mg/dL Creatinine 0.7 L (0.8-1.3) mg/dL Est Cr Clr Drug Dosing 124.71 mL/min Estimated GFR (MDRD) > 60 (>60) Glucose 204 H (74-106) mg/dL Lactic Acid 2.8 H (0.4-2.0) mmol/L Calcium 8.3 L (8.5-10.1) mg/dL Total Bilirubin 0.2 (0.2-1.0) mg/dL AST 20 (15-37) U/L ALT 26 (12-78) U/L Alkaline Phosphatase 96 (46-116) U/L Troponin I (0.000-0.056) ng/mL NT-Pro-B Natriuret Pep (5-125) pg/mL Total Protein 7.1 (6.4-8.2) g/dL Albumin 3.2 L (3.4-5.0) g/dL Globulin 3.9 H (2.3-3.5) g/dL Albumin/Globulin Ratio 0.8 L (1.2-2.2) Urine Color (YELLOW) Urine Appearance (CLEAR) Urine pH (5.0-8.0) Ur Specific [place] (1.008-1.030) Urine Protein (NEGATIVE) mg/dL Urine Glucose (UA) (NEGATIVE) mg/dL Urine Ketones (NEGATIVE) mg/dL Urine Occult Blood (NEGATIVE) Urine Nitrite (NEGATIVE) Urine Bilirubin (NEGATIVE) Urine Urobilinogen (0.2-1.0) EU/dL Ur Leukocyte Esterase (NEGATIVE) Urine RBC (0-5) Urine WBC (0-5) Ur Epithelial Cells Amorphous Sediment Urine Bacteria Urine Mucus Urine Opiates Screen (NEGATIVE) Ur Oxycodone Screen (NEGATIVE) Urine Methadone Screen (NEGATIVE) Ur Propoxyphene Screen (NEGATIVE) Ur Barbiturates Screen (NEGATIVE) Ur Tricyclics Screen (NEGATIVE) Ur Phencyclidine Scrn (NEGATIVE) Ur Amphetamine Screen (NEGATIVE) U Methamphetamines Scrn (NEGATIVE) Urine MDMA Screen (NEGATIVE) U Benzodiazepines Scrn (NEGATIVE) U Cocaine Metab Screen (NEGATIVE) U Marijuana (THC) Screen (NEGATIVE) Ethyl Alcohol mg/dL 02/15/21 02/15/21 02/15/21 Range/Units 15:05 15:05 15:05 WBC (4.5-11.0) K/uL RBC (4.30-5.90) M/uL Hgb (12.0-15.0) g/dL Hct (40.0-54.0) % MCV (80-98) fL MCH (27-31) pg MCHC (32-36) % Plt Count (150-400) K/uL Neut % (Auto) (36-66) % Lymph % (Auto) (24-44) % Lipscomb % (Auto) (2-6) % Eos % (Auto) (2-4) % Baso % (Auto) (0-1) % D-Dimer, Quantitative 2171.25 H (0.0-500.0) ng/mL Puncture Site ABG pH (7.350-7.450) ABG pCO2 (35.0-42.0) mmHg ABG pO2 (75.0-100.0) mmHg ABG HCO3 (22.0-26.0) mmol/L ABG Total CO2 (23.0-27.0) mmol/L ABG O2 Saturation (95.0-98.0) % ABG O2 Content (15.0-23.0) %vol ABG Base Excess mm/L ABG Hemoglobin (13.5-18.0) g/dL ABG Oxyhemoglobin % ABG Carboxyhemoglobin (0.0-1.6) % ABG Methemoglobin % Toribio Test O2 Delivery Device Oxygen Flow Rate L Sodium (140-148) mmol/L Potassium (3.6-5.2) mmol/L Chloride (100-108) mmol/L Carbon Dioxide (21-32) mmol/L Anion Gap (5.0-14.0) mmol/L BUN (7-18) mg/dL Creatinine (0.8-1.3) mg/dL Est Cr Clr Drug Dosing mL/min Estimated GFR (MDRD) (>60) Glucose (74-106) mg/dL Lactic Acid (0.4-2.0) mmol/L Calcium (8.5-10.1) mg/dL Total Bilirubin (0.2-1.0) mg/dL AST (15-37) U/L ALT (12-78) U/L Alkaline Phosphatase (46-116) U/L Troponin I (0.000-0.056) ng/mL NT-Pro-B Natriuret Pep 61 (5-125) pg/mL Total Protein (6.4-8.2) g/dL Albumin (3.4-5.0) g/dL Globulin (2.3-3.5) g/dL Albumin/Globulin Ratio (1.2-2.2) Urine Color (YELLOW) Urine Appearance (CLEAR) Urine pH (5.0-8.0) Ur Specific [place] (1.008-1.030) Urine Protein (NEGATIVE) mg/dL Urine Glucose (UA) (NEGATIVE) mg/dL Urine Ketones (NEGATIVE) mg/dL Urine Occult Blood (NEGATIVE) Urine Nitrite (NEGATIVE) Urine Bilirubin (NEGATIVE) Urine Urobilinogen (0.2-1.0) EU/dL Ur Leukocyte Esterase (NEGATIVE) Urine RBC (0-5) Urine WBC (0-5) Ur Epithelial Cells Amorphous Sediment Urine Bacteria Urine Mucus Urine Opiates Screen (NEGATIVE) Ur Oxycodone Screen (NEGATIVE) Urine Methadone Screen (NEGATIVE) Ur Propoxyphene Screen (NEGATIVE) Ur Barbiturates Screen (NEGATIVE) Ur Tricyclics Screen (NEGATIVE) Ur Phencyclidine Scrn (NEGATIVE) Ur Amphetamine Screen (NEGATIVE) U Methamphetamines Scrn (NEGATIVE) Urine MDMA Screen (NEGATIVE) U Benzodiazepines Scrn (NEGATIVE) U Cocaine Metab Screen (NEGATIVE) U Marijuana (THC) Screen (NEGATIVE) Ethyl Alcohol 346 mg/dL 02/15/21 02/15/21 02/15/21 Range/Units 15:05 16:12 16:23 WBC (4.5-11.0) K/uL RBC (4.30-5.90) M/uL Hgb (12.0-15.0) g/dL Hct (40.0-54.0) % MCV (80-98) fL MCH (27-31) pg MCHC (32-36) % Plt Count (150-400) K/uL Neut % (Auto) (36-66) % Lymph % (Auto) (24-44) % Lipscomb % (Auto) (2-6) % Eos % (Auto) (2-4) % Baso % (Auto) (0-1) % D-Dimer, Quantitative (0.0-500.0) ng/mL Puncture Site Lt radial ABG pH 7.335 L (7.350-7.450) ABG pCO2 55.7 H (35.0-42.0) mmHg ABG pO2 64.5 L (75.0-100.0) mmHg ABG HCO3 28.9 H (22.0-26.0) mmol/L ABG Total CO2 25.4 (23.0-27.0) mmol/L ABG O2 Saturation 88.6 L (95.0-98.0) % ABG O2 Content 18.7 (15.0-23.0) %vol ABG Base Excess 2.1 mm/L ABG Hemoglobin 15.7 (13.5-18.0) g/dL ABG Oxyhemoglobin 84.7 % ABG Carboxyhemoglobin 3.7 H (0.0-1.6) % ABG Methemoglobin 0.7 % Toribio Test Pass O2 Delivery Device Nasal cannula Oxygen Flow Rate 6.0 L Sodium (140-148) mmol/L Potassium (3.6-5.2) mmol/L Chloride (100-108) mmol/L Carbon Dioxide (21-32) mmol/L Anion Gap (5.0-14.0) mmol/L BUN (7-18) mg/dL Creatinine (0.8-1.3) mg/dL Est Cr Clr Drug Dosing mL/min Estimated GFR (MDRD) (>60) Glucose (74-106) mg/dL Lactic Acid (0.4-2.0) mmol/L Calcium (8.5-10.1) mg/dL Total Bilirubin (0.2-1.0) mg/dL AST (15-37) U/L ALT (12-78) U/L Alkaline Phosphatase (46-116) U/L Troponin I < 0.017 (0.000-0.056) ng/mL NT-Pro-B Natriuret Pep (5-125) pg/mL Total Protein (6.4-8.2) g/dL Albumin (3.4-5.0) g/dL Globulin (2.3-3.5) g/dL Albumin/Globulin Ratio (1.2-2.2) Urine Color Yellow (YELLOW) Urine Appearance Slightly cloudy A (CLEAR) Urine pH 5.5 (5.0-8.0) Ur Specific [place] 1.025 (1.008-1.030) Urine Protein >=300 H (NEGATIVE) mg/dL Urine Glucose (UA) 100 H (NEGATIVE) mg/dL Urine Ketones Negative (NEGATIVE) mg/dL Urine Occult Blood Moderate H (NEGATIVE) Urine Nitrite Negative (NEGATIVE) Urine Bilirubin Negative (NEGATIVE) Urine Urobilinogen 0.2 (0.2-1.0) EU/dL Ur Leukocyte Esterase Negative (NEGATIVE) Urine RBC 0-5 (0-5) Urine WBC 0-5 (0-5) Ur Epithelial Cells Moderate Amorphous Sediment Few Urine Bacteria Rare Urine Mucus Not seen Urine Opiates Screen (NEGATIVE) Ur Oxycodone Screen (NEGATIVE) Urine Methadone Screen (NEGATIVE) Ur Propoxyphene Screen (NEGATIVE) Ur Barbiturates Screen (NEGATIVE) Ur Tricyclics Screen (NEGATIVE) Ur Phencyclidine Scrn (NEGATIVE) Ur Amphetamine Screen (NEGATIVE) U Methamphetamines Scrn (NEGATIVE) Urine MDMA Screen (NEGATIVE) U Benzodiazepines Scrn (NEGATIVE) U Cocaine Metab Screen (NEGATIVE) U Marijuana (THC) Screen (NEGATIVE) Ethyl Alcohol mg/dL 02/15/21 02/15/21 Range/Units 16:23 18:53 WBC (4.5-11.0) K/uL RBC (4.30-5.90) M/uL Hgb (12.0-15.0) g/dL Hct (40.0-54.0) % MCV (80-98) fL MCH (27-31) pg MCHC (32-36) % Plt Count (150-400) K/uL Neut % (Auto) (36-66) % Lymph % (Auto) (24-44) % [place]comb % (Auto) (2-6) % Eos % (Auto) (2-4) % Baso % (Auto) (0-1) % D-Dimer, Quantitative (0.0-500.0) ng/mL Puncture Site ABG pH (7.350-7.450) ABG pCO2 (35.0-42.0) mmHg ABG pO2 (75.0-100.0) mmHg ABG HCO3 (22.0-26.0) mmol/L ABG Total CO2 (23.0-27.0) mmol/L ABG O2 Saturation (95.0-98.0) % ABG O2 Content (15.0-23.0) %vol ABG Base Excess mm/L ABG Hemoglobin (13.5-18.0) g/dL ABG Oxyhemoglobin % ABG Carboxyhemoglobin (0.0-1.6) % ABG Methemoglobin % Toribio Test O2 Delivery Device Oxygen Flow Rate L Sodium (140-148) mmol/L Potassium (3.6-5.2) mmol/L Chloride (100-108) mmol/L Carbon Dioxide (21-32) mmol/L Anion Gap (5.0-14.0) mmol/L BUN (7-18) mg/dL Creatinine (0.8-1.3) mg/dL Est Cr Clr Drug Dosing mL/min Estimated GFR (MDRD) (>60) Glucose (74-106) mg/dL Lactic Acid (0.4-2.0) mmol/L Calcium (8.5-10.1) mg/dL Total Bilirubin (0.2-1.0) mg/dL AST (15-37) U/L ALT (12-78) U/L Alkaline Phosphatase (46-116) U/L Troponin I < 0.017 (0.000-0.056) ng/mL NT-Pro-B Natriuret Pep (5-125) pg/mL Total Protein (6.4-8.2) g/dL Albumin (3.4-5.0) g/dL Globulin (2.3-3.5) g/dL Albumin/Globulin Ratio (1.2-2.2) Urine Color (YELLOW) Urine Appearance (CLEAR) Urine pH (5.0-8.0) Ur Specific [place] (1.008-1.030) Urine Protein (NEGATIVE) mg/dL Urine Glucose (UA) (NEGATIVE) mg/dL Urine Ketones (NEGATIVE) mg/dL Urine Occult Blood (NEGATIVE) Urine Nitrite (NEGATIVE) Urine Bilirubin (NEGATIVE) Urine Urobilinogen (0.2-1.0) EU/dL Ur Leukocyte Esterase (NEGATIVE) Urine RBC (0-5) Urine WBC (0-5) Ur Epithelial Cells Amorphous Sediment Urine Bacteria Urine Mucus Urine Opiates Screen Negative (NEGATIVE) Ur Oxycodone Screen Negative (NEGATIVE) Urine Methadone Screen Negative (NEGATIVE) Ur Propoxyphene Screen Negative (NEGATIVE) Ur Barbiturates Screen Negative (NEGATIVE) Ur Tricyclics Screen Negative (NEGATIVE) Ur Phencyclidine Scrn Negative (NEGATIVE) Ur Amphetamine Screen Negative (NEGATIVE) U Methamphetamines Scrn Negative (NEGATIVE) Urine MDMA Screen Negative (NEGATIVE) U Benzodiazepines Scrn Negative (NEGATIVE) U Cocaine Metab Screen Negative (NEGATIVE) U Marijuana (THC) Screen Negative (NEGATIVE) Ethyl Alcohol mg/dL Result Diagrams: 02/15/21 15:05 02/15/21 15:05 Sepsis Event Note - Evaluation Sepsis Screening Result: No Definite Risk - Focused Exam Vital Signs: Vital Signs Temp Pulse Resp BP BP Pulse Ox 02/15/21 18:31 98 14 143/65 H 92 L 02/15/21 18:20 22 H 137/66 90 L 02/15/21 17:48 140/80 02/15/21 17:46 15 140/80 88 L 02/15/21 16:28 97 130/79 90 L 02/15/21 16:27 101 H 21 H 130/79 91 L 02/15/21 16:19 20 121/72 91 L 02/15/21 15:56 98.0 F 102 H 18 96/58 L 92 L 02/15/21 15:55 86 L 02/15/21 15:53 98.0 F 102 H 18 96/58 L 78 L *Q Meaningful Use (ADM) - VTE Risk Assess *Q Each Risk Factor Represents 1 Point: Age 41 - 59 years, Obesity ( BMI > 25 kg/ m2), Serious lung disease including pneumonia, Abnormal Pulmonary Function (COPD) Total Score 1 Point Risk Factors: 4 Each Risk Factor Represents 2 Points: None Total Score 2 Point Risk Factors: 0 Each Risk Factor Represents 3 Points: None Total Score 3 Point Risk Factors: 0 Each Risk Factor Represents 5 Points: None Total Score 5 Point Risk Factors: 0 Venous Thromboembolism Risk Factor Score *Q: 4 Problem List Initiated/Reviewed/Updated: Yes Orders Last 24hrs: Active Orders 24 hr Category Date Time Status Patient Status Manage Transfer [TRANSFER] Routine ADT 02/15/21 19:23 Ordered Chest 1V Frontal [CR] Stat Exams 02/15/21 15:56 Taken COVID-19/FLU A+B/RSV [MOLEC] Stat Lab 02/15/21 19:23 Ordered PROCALCITONIN [CHEM] Stat Lab 02/15/21 18:51 Received Iopamidol [Isovue-370 (76%)] Med 02/15/21 16:45 Active 100 ml IV . DIRECTED MVI, Adult with Vitamin K [Infuvite Adult] 10 ml Med 02/15/21 19:00 Active Thiamine [Vitamin B-1] 100 mg Folic Acid 1 mg Magnesium Sulfate [Magnesium Sulfate 50%] 3 gm Sodium Chloride 0.9% [Normal Saline] 1,000 ml IV ASDIRECTED Sodium Chloride 0.9% [Normal Saline] 100 ml Med 02/15/21 16:45 Active IV ASDIRECTED Sodium Chloride 0.9% [Saline Flush] Med 02/15/21 15:56 Active 10 ml FLUSH ASDIRECTED PRN Isolation [COMM] Stat Oth 02/15/21 19:23 Ordered Saline Lock Insert [OM.PC] Routine Oth 02/15/21 15:56 Ordered Resuscitation Status Routine Resus Stat 02/15/21 19:28 Ordered EKG 12 Lead [EK] Routine Ther 02/15/21 15:56 Ordered Medication Orders Sodium Chloride (Normal Saline) 100 mls @ 3.5 mls/sec IV ASDIRECTED ASAF Last Admin: 02/15/21 17:14 Dose: 4 mls/sec Documented by: SHANIQUA Multivitamins/Minerals 10 ml/Thiamine HCl 100 mg/ Folic Acid 1 mg/ Magnesium Sulfate 3 gm/ Sodium Chloride 1,017.2 mls @ 150 mls/hr IV ASDIRECTED ASAF Iopamidol (Iopamidol 755 Mg/Ml 100 Ml Bottle) 100 ml IV . DIRECTED ASAF Last Admin: 02/15/21 17:14 Dose: 100 ml Documented by: SHANIQUA Sodium Chloride (Sodium Chloride 0.9% 10 Ml Syringe) 10 ml FLUSH ASDIRECTED PRN PRN Reason: Keep Vein Open Last Admin: 02/15/21 16:17 Dose: 10 ml Documented by: NANDO Assessment/Plan Comment:: ASSESSMENT AND PLAN COPD EXACERBATION-possible underlying bronchitis/infection. Longstanding s moking history 2 packs a day over 45 years. He does have oxygen at home which he mainly only uses at night. Denies recent Covid exposure but does have groundglass infiltrates on CT scan. -Solu-Medrol 40 mg IV every 8 hours -IV antibiotic therapy with ceftriaxone and doxycycline, pending further ev aluation -Nebulizer therapy with DuoNeb's and albuterol -Supplemental oxygen as needed, maintain saturations around 90% because of CO2 retention -Continuous pulse oximetry -Procalcitonin and Covid testing pending ACUTE ON CHRONIC HYPOXIC AND HYPERCAPNIC RESPIRATORY FAILURE -Management as above LACTIC ACIDOSIS-mild elevation in lactic acid level, likely secondary to dehydration -Follow-up lactic acid level later this evening and in a.m. -IV fluids for hydration ALCOHOL INTOXICATION-alcohol level in the emergency department was 346 -Banana bag given in the emergency department -Alcohol withdrawal protocol -Gabapentin 400 mg p.o. every 8 hours TYPE 2 DIABETES MELLITUS -Hold Metformin because of lactic acidosis -Lantus insulin 26 units subcu nightly -4 times daily glucometers -Moderate dose sliding scale Humalog MAINTENANCE ISSUES -DVT prophylaxis; Lovenox 40 mg subcu daily -GI prophylaxis; not indicated -Samuel catheter; not indicated -Nutrition; consistent carbohydrate diet -Nicotine dependence; nicotine patch and gum CODE STATUS-FULL CODE ADMISSION STATUS-patient will be admitted to inpatient status, expect at least a 2 night hospital stay for evaluation and management of problems as outlined above. At the time of this admission I do not reasonably expected evaluation and management of this problem will require more than a 96 hour hospital stay. DISPOSITION-anticipate discharge to home after the hospital stay. PRIMARY CARE PROVIDER-Dr. Hunter Sal - Mortality Measure Prognosis:: Good
[2021-02-15 20:21] LABS: CORONAVIRUS COVID-19 NAA NEGATIVE (NEGATIVE)
[2021-02-15] MEDS ORDERED: Nicotine Polacrilex 2 MG Gum CHEW PRN (20:54)
[2021-02-15] MEDS ORDERED: LORazepam 1 MG Tab PO SCH (20:54)
[2021-02-15] MEDS ORDERED: Albuterol 0.083% 2.5 MG/3 ML Neb Soln NEB PRN (20:54)
[2021-02-15] MEDS ORDERED: Ondansetron 4 MG/2 ML SDV IV PRN (20:54)
[2021-02-15] MEDS ORDERED: Glucose Gel 15 GM in 37.5 GM Tube PO PRN (20:54)
[2021-02-15] MEDS ORDERED: Polyethylene Glycol 3350 Powder 17 GM Packet PO PRN (20:54)
[2021-02-15] MEDS ORDERED: Sodium Chloride 0.9% 1,000 ML IV SCH (20:54)
[2021-02-15] MEDS ORDERED: 50% Dextrose in Water 50 ML Syringe IV PRN (20:54)
[2021-02-15] MEDS ORDERED: Acetaminophen 325 MG Tab PO PRN (20:54)
[2021-02-15] MEDS ORDERED: Insulin Glargine,Human Rec. Analog 100 Units/ML 3 ML Pen SUBCUT SCH (21:00)
[2021-02-15] MEDS: LORazepam 1 MG Tab PO PRN ×2 (21:29→23:30)
[2021-02-15] MEDS: Gabapentin 400 MG Cap PO SCH (21:29)
[2021-02-15] MEDS: chlordiazePOXIDE 25 MG Cap PO SCH (21:30)
[2021-02-15] MEDS: Nicotine 21 MG/24 Hr Patch TRDERM SCH (21:32)
[2021-02-15] MEDS ORDERED: Thiamine 200 MG/2 ML MDV ONE (21:53)
[2021-02-15] MEDS ORDERED: Doxycycline 100 MG in Sodium Chloride 0.9% 100 ML IV SCH (22:00)
[2021-02-15] MEDS: Insulin Lispro 100 Unit/ML 3 ML KwikPen SUBCUT SCH (22:00)
[2021-02-15] MEDS: Enoxaparin 40 MG/0.4 ML Syringe SUBCUT SCH (22:02)
[2021-02-15] MEDS: methylPREDNISolone Sodium Succinate 40 MG/1 ML SDV IVPUSH SCH (22:03)
[2021-02-15] MEDS: cefTRIAXone 1 GM in Sodium Chloride 0.9% 50 ML IV SCH (22:03)
[2021-02-15] MEDS: Albuterol/Ipratropium 3.0-0.5 MG/3 ML Neb Soln NEB SCH (22:10)
[2021-02-15] MEDS: Thiamine 100 MG Tab PO SCH (22:35)
[2021-02-15] MEDS: Folic Acid 1 MG Tab PO SCH (22:35)
[2021-02-16] MEDS: LORazepam 1 MG Tab PO PRN ×6 (02:16→21:18)
[2021-02-16] MEDS: Gabapentin 400 MG Cap PO SCH ×3 (05:16→21:07)
[2021-02-16] MEDS: methylPREDNISolone Sodium Succinate 40 MG/1 ML SDV IVPUSH SCH ×3 (05:16→21:08)
[2021-02-16] MEDS: Albuterol/Ipratropium 3.0-0.5 MG/3 ML Neb Soln NEB SCH ×5 (05:16→21:07)
[2021-02-16] MEDS: chlordiazePOXIDE 25 MG Cap PO SCH ×3 (05:23→21:07)
[2021-02-16] MEDS: Insulin Lispro 100 Unit/ML 3 ML KwikPen SUBCUT SCH ×4 (07:19→19:40)
[2021-02-16] MEDS: Thiamine 100 MG Tab PO SCH (09:21)
[2021-02-16] MEDS: Folic Acid 1 MG Tab PO SCH (09:21)
[2021-02-16] MEDS: Aspirin 325 MG Tab.EC PO SCH (09:21)
[2021-02-16] MEDS: Nicotine 21 MG/24 Hr Patch TRDERM SCH (09:21)
--- NOTE | 2021-02-16 09:51 | CR ---
CHEST: Portable 02/15/2021 at 4:37 PM CLINICAL HISTORY:Dyspnea COMPARISON:2019 FINDINGS: The heart size, pulmonary vascularity and hilar structures are normal. No infiltrate effusion or pneumothorax is seen. IMPRESSION: No acute cardiopulmonary process.
[2021-02-16] MEDS ORDERED: Glucagon,Human Recombinant 1 MG Vial IM PRN ×2 (11:50→19:27)
[2021-02-16] MEDS ORDERED: 50% Dextrose in Water 50 ML Syringe IVPUSH PRN ×2 (11:50→19:27)
[2021-02-16] MEDS ORDERED: Insulin Lispro 100 Unit/ML 3 ML KwikPen SUBCUT ONE ×2 (11:50→19:27)
--- NOTE | 2021-02-16 11:56 | PCM.PN ---
- General Info Date of Service: 02/16/21 Subjective Update: No acute events overnight but the patient reports increasing anxiety and tremor today. He is worried that his alcohol withdrawal is progressing. Supplemental oxygen requirements have decreased some since yesterday and he is down to about 2 L of oxygen. No significant cough. He is short of breath with any activity. No hallucinations. Procalcitonin level remains undetectable. Functional Status: Reports: Pain Controlled - Review of Systems General: Denies: Fever Pulmonary: Reports: Shortness of Breath Neurological: Reports: Tremors - Patient Data Vitals - Most Recent: Last Vital Signs Temp 36.3 C 02/16/21 11:00 Pulse 101 H 02/16/21 11:00 Resp 22 H 02/16/21 11:00 BP 196/90 H 02/16/21 11:00 Pulse Ox 91 L 02/16/21 11:00 Weight - Most Recent: 119.975 kg I&O - Last 24 Hours: Intake & Output 02/15/21 02/16/21 02/16/21 22:59 06:59 14:59 Intake Total 500 1002 1080 Output Total 950 450 Balance 500 52 630 Lab Results Last 24 Hours: Laboratory Results - last 24 hr 02/15/21 02/15/21 02/15/21 Range/Units 15:05 15:05 15:05 WBC 10.9 (4.5-11.0) K/uL RBC 5.60 (4.30-5.90) M/uL Hgb 15.9 H (12.0-15.0) g/dL Hct 46.4 (40.0-54.0) % MCV 83 (80-98) fL MCH 28 (27-31) pg MCHC 34 (32-36) % Plt Count 356 (150-400) K/uL Neut % (Auto) 65.5 (36-66) % Lymph % (Auto) 24.4 (24-44) % Alexander % (Auto) 7.1 H (2-6) % Eos % (Auto) 2.5 (2-4) % Baso % (Auto) 0.5 (0-1) % D-Dimer, Quantitative (0.0-500.0) ng/mL Puncture Site ABG pH (7.350-7.450) ABG pCO2 (35.0-42.0) mmHg ABG pO2 (75.0-100.0) mmHg ABG HCO3 (22.0-26.0) mmol/L ABG Total CO2 (23.0-27.0) mmol/L ABG O2 Saturation (95.0-98.0) % ABG O2 Content (15.0-23.0) %vol ABG Base Excess mm/L ABG Hemoglobin (13.5-18.0) g/dL ABG Oxyhemoglobin % ABG Carboxyhemoglobin (0.0-1.6) % ABG Methemoglobin % Toribio Test O2 Delivery Device Oxygen Flow Rate L Sodium 135 L (140-148) mmol/L Potassium 4.3 (3.6-5.2) mmol/L Chloride 96 L (100-108) mmol/L Carbon Dioxide 29 (21-32) mmol/L Anion Gap 14.3 H (5.0-14.0) mmol/L BUN 10 D (7-18) mg/dL Creatinine 0.7 L (0.8-1.3) mg/dL Est Cr Clr Drug Dosing 124.71 mL/min Estimated GFR (MDRD) > 60 (>60) Glucose 204 H (74-106) mg/dL POC Glucose (74-106) mg/dL Lactic Acid 2.8 H (0.4-2.0) mmol/L Calcium 8.3 L (8.5-10.1) mg/dL Magnesium (1.8-2.4) mg/dL Total Bilirubin 0.2 (0.2-1.0) mg/dL AST 20 (15-37) U/L ALT 26 (12-78) U/L Alkaline Phosphatase 96 (46-116) U/L Troponin I (0.000-0.056) ng/mL NT-Pro-B Natriuret Pep (5-125) pg/mL Total Protein 7.1 (6.4-8.2) g/dL Albumin 3.2 L (3.4-5.0) g/dL Globulin 3.9 H (2.3-3.5) g/dL Albumin/Globulin Ratio 0.8 L (1.2-2.2) Procalcitonin ng/mL Urine Color (YELLOW) Urine Appearance (CLEAR) Urine pH (5.0-8.0) Ur Specific [place] (1.008-1.030) Urine Protein (NEGATIVE) mg/dL Urine Glucose (UA) (NEGATIVE) mg/dL Urine Ketones (NEGATIVE) mg/dL Urine Occult Blood (NEGATIVE) Urine Nitrite (NEGATIVE) Urine Bilirubin (NEGATIVE) Urine Urobilinogen (0.2-1.0) EU/dL Ur Leukocyte Esterase (NEGATIVE) Urine RBC (0-5) Urine WBC (0-5) Ur Epithelial Cells Amorphous Sediment Urine Bacteria Urine Mucus Urine Opiates Screen (NEGATIVE) Ur Oxycodone Screen (NEGATIVE) Urine Methadone Screen (NEGATIVE) Ur Propoxyphene Screen (NEGATIVE) Ur Barbiturates Screen (NEGATIVE) Ur Tricyclics Screen (NEGATIVE) Ur Phencyclidine Scrn (NEGATIVE) Ur Amphetamine Screen (NEGATIVE) U Methamphetamines Scrn (NEGATIVE) Urine MDMA Screen (NEGATIVE) U Benzodiazepines Scrn (NEGATIVE) U Cocaine Metab Screen (NEGATIVE) U Marijuana (THC) Screen (NEGATIVE) Ethyl Alcohol mg/dL Influenza Type A RNA (NEGATIVE) RSV RNA (INAAT) (NEGATIVE) Influenza Type B RNA (NEGATIVE) SARS-CoV-2 RNA (FRANCES) (NEGATIVE) 02/15/21 02/15/21 02/15/21 Range/Units 15:05 15:05 15:05 WBC (4.5-11.0) K/uL RBC (4.30-5.90) M/uL Hgb (12.0-15.0) g/dL Hct (40.0-54.0) % MCV (80-98) fL MCH (27-31) pg MCHC (32-36) % Plt Count (150-400) K/uL Neut % (Auto) (36-66) % Lymph % (Auto) (24-44) % Alexander % (Auto) (2-6) % Eos % (Auto) (2-4) % Baso % (Auto) (0-1) % D-Dimer, Quantitative 2171.25 H (0.0-500.0) ng/mL Puncture Site ABG pH (7.350-7.450) ABG pCO2 (35.0-42.0) mmHg ABG pO2 (75.0-100.0) mmHg ABG HCO3 (22.0-26.0) mmol/L ABG Total CO2 (23.0-27.0) mmol/L ABG O2 Saturation (95.0-98.0) % ABG O2 Content (15.0-23.0) %vol ABG Base Excess mm/L ABG Hemoglobin (13.5-18.0) g/dL ABG Oxyhemoglobin % ABG Carboxyhemoglobin (0.0-1.6) % ABG Methemoglobin % Toribio Test O2 Delivery Device Oxygen Flow Rate L Sodium (140-148) mmol/L Potassium (3.6-5.2) mmol/L Chloride (100-108) mmol/L Carbon Dioxide (21-32) mmol/L Anion Gap (5.0-14.0) mmol/L BUN (7-18) mg/dL Creatinine (0.8-1.3) mg/dL Est Cr Clr Drug Dosing mL/min Estimated GFR (MDRD) (>60) Glucose (74-106) mg/dL POC Glucose (74-106) mg/dL Lactic Acid (0.4-2.0) mmol/L Calcium (8.5-10.1) mg/dL Magnesium (1.8-2.4) mg/dL Total Bilirubin (0.2-1.0) mg/dL AST (15-37) U/L ALT (12-78) U/L Alkaline Phosphatase (46-116) U/L Troponin I (0.000-0.056) ng/mL NT-Pro-B Natriuret Pep 61 (5-125) pg/mL Total Protein (6.4-8.2) g/dL Albumin (3.4-5.0) g/dL Globulin (2.3-3.5) g/dL Albumin/Globulin Ratio (1.2-2.2) Procalcitonin ng/mL Urine Color (YELLOW) Urine Appearance (CLEAR) Urine pH (5.0-8.0) Ur Specific [place] (1.008-1.030) Urine Protein (NEGATIVE) mg/dL Urine Glucose (UA) (NEGATIVE) mg/dL Urine Ketones (NEGATIVE) mg/dL Urine Occult Blood (NEGATIVE) Urine Nitrite (NEGATIVE) Urine Bilirubin (NEGATIVE) Urine Urobilinogen (0.2-1.0) EU/dL Ur Leukocyte Esterase (NEGATIVE) Urine RBC (0-5) Urine WBC (0-5) Ur Epithelial Cells Amorphous Sediment Urine Bacteria Urine Mucus Urine Opiates Screen (NEGATIVE) Ur Oxycodone Screen (NEGATIVE) Urine Methadone Screen (NEGATIVE) Ur Propoxyphene Screen (NEGATIVE) Ur Barbiturates Screen (NEGATIVE) Ur Tricyclics Screen (NEGATIVE) Ur Phencyclidine Scrn (NEGATIVE) Ur Amphetamine Screen (NEGATIVE) U Methamphetamines Scrn (NEGATIVE) Urine MDMA Screen (NEGATIVE) U Benzodiazepines Scrn (NEGATIVE) U Cocaine Metab Screen (NEGATIVE) U Marijuana (THC) Screen (NEGATIVE) Ethyl Alcohol 346 mg/dL Influenza Type A RNA (NEGATIVE) RSV RNA (INAAT) (NEGATIVE) Influenza Type B RNA (NEGATIVE) SARS-CoV-2 RNA (FRANCES) (NEGATIVE) 02/15/21 02/15/21 02/15/21 Range/Units 15:05 16:12 16:23 WBC (4.5-11.0) K/uL RBC (4.30-5.90) M/uL Hgb (12.0-15.0) g/dL Hct (40.0-54.0) % MCV (80-98) fL MCH (27-31) pg MCHC (32-36) % Plt Count (150-400) K/uL Neut % (Auto) (36-66) % Lymph % (Auto) (24-44) % Alexander % (Auto) (2-6) % Eos % (Auto) (2-4) % Baso % (Auto) (0-1) % D-Dimer, Quantitative (0.0-500.0) ng/mL Puncture Site Lt radial ABG pH 7.335 L (7.350-7.450) ABG pCO2 55.7 H (35.0-42.0) mmHg ABG pO2 64.5 L (75.0-100.0) mmHg ABG HCO3 28.9 H (22.0-26.0) mmol/L ABG Total CO2 25.4 (23.0-27.0) mmol/L ABG O2 Saturation 88.6 L (95.0-98.0) % ABG O2 Content 18.7 (15.0-23.0) %vol ABG Base Excess 2.1 mm/L ABG Hemoglobin 15.7 (13.5-18.0) g/dL ABG Oxyhemoglobin 84.7 % ABG Carboxyhemoglobin 3.7 H (0.0-1.6) % ABG Methemoglobin 0.7 % Toribio Test Pass O2 Delivery Device Nasal cannula Oxygen Flow Rate 6.0 L Sodium (140-148) mmol/L Potassium (3.6-5.2) mmol/L Chloride (100-108) mmol/L Carbon Dioxide (21-32) mmol/L Anion Gap (5.0-14.0) mmol/L BUN (7-18) mg/dL Creatinine (0.8-1.3) mg/dL Est Cr Clr Drug Dosing mL/min Estimated GFR (MDRD) (>60) Glucose (74-106) mg/dL POC Glucose (74-106) mg/dL Lactic Acid (0.4-2.0) mmol/L Calcium (8.5-10.1) mg/dL Magnesium (1.8-2.4) mg/dL Total Bilirubin (0.2-1.0) mg/dL AST (15-37) U/L ALT (12-78) U/L Alkaline Phosphatase (46-116) U/L Troponin I < 0.017 (0.000-0.056) ng/mL NT-Pro-B Natriuret Pep (5-125) pg/mL Total Protein (6.4-8.2) g/dL Albumin (3.4-5.0) g/dL Globulin (2.3-3.5) g/dL Albumin/Globulin Ratio (1.2-2.2) Procalcitonin ng/mL Urine Color Yellow (YELLOW) Urine Appearance Slightly cloudy A (CLEAR) Urine pH 5.5 (5.0-8.0) Ur Specific [place] 1.025 (1.008-1.030) Urine Protein >=300 H (NEGATIVE) mg/dL Urine Glucose (UA) 100 H (NEGATIVE) mg/dL Urine Ketones Negative (NEGATIVE) mg/dL Urine Occult Blood Moderate H (NEGATIVE) Urine Nitrite Negative (NEGATIVE) Urine Bilirubin Negative (NEGATIVE) Urine Urobilinogen 0.2 (0.2-1.0) EU/dL Ur Leukocyte Esterase Negative (NEGATIVE) Urine RBC 0-5 (0-5) Urine WBC 0-5 (0-5) Ur Epithelial Cells Moderate Amorphous Sediment Few Urine Bacteria Rare Urine Mucus Not seen Urine Opiates Screen (NEGATIVE) Ur Oxycodone Screen (NEGATIVE) Urine Methadone Screen (NEGATIVE) Ur Propoxyphene Screen (NEGATIVE) Ur Barbiturates Screen (NEGATIVE) Ur Tricyclics Screen (NEGATIVE) Ur Phencyclidine Scrn (NEGATIVE) Ur Amphetamine Screen (NEGATIVE) U Methamphetamines Scrn (NEGATIVE) Urine MDMA Screen (NEGATIVE) U Benzodiazepines Scrn (NEGATIVE) U Cocaine Metab Screen (NEGATIVE) U Marijuana (THC) Screen (NEGATIVE) Ethyl Alcohol mg/dL Influenza Type A RNA (NEGATIVE) RSV RNA (INAAT) (NEGATIVE) Influenza Type B RNA (NEGATIVE) SARS-CoV-2 RNA (FRANCES) (NEGATIVE) 02/15/21 02/15/21 02/15/21 Range/Units 16:23 18:40 18:51 WBC (4.5-11.0) K/uL RBC (4.30-5.90) M/uL Hgb (12.0-15.0) g/dL Hct (40.0-54.0) % MCV (80-98) fL MCH (27-31) pg MCHC (32-36) % Plt Count (150-400) K/uL Neut % (Auto) (36-66) % Lymph % (Auto) (24-44) % Alexander % (Auto) (2-6) % Eos % (Auto) (2-4) % Baso % (Auto) (0-1) % D-Dimer, Quantitative (0.0-500.0) ng/mL Puncture Site ABG pH (7.350-7.450) ABG pCO2 (35.0-42.0) mmHg ABG pO2 (75.0-100.0) mmHg ABG HCO3 (22.0-26.0) mmol/L ABG Total CO2 (23.0-27.0) mmol/L ABG O2 Saturation (95.0-98.0) % ABG O2 Content (15.0-23.0) %vol ABG Base Excess mm/L ABG Hemoglobin (13.5-18.0) g/dL ABG Oxyhemoglobin % ABG Carboxyhemoglobin (0.0-1.6) % ABG Methemoglobin % Toribio Test O2 Delivery Device Oxygen Flow Rate L Sodium (140-148) mmol/L Potassium (3.6-5.2) mmol/L Chloride (100-108) mmol/L Carbon Dioxide (21-32) mmol/L Anion Gap (5.0-14.0) mmol/L BUN (7-18) mg/dL Creatinine (0.8-1.3) mg/dL Est Cr Clr Drug Dosing mL/min Estimated GFR (MDRD) (>60) Glucose (74-106) mg/dL POC Glucose (74-106) mg/dL Lactic Acid 2.6 H (0.4-2.0) mmol/L Calcium (8.5-10.1) mg/dL Magnesium (1.8-2.4) mg/dL Total Bilirubin (0.2-1.0) mg/dL AST (15-37) U/L ALT (12-78) U/L Alkaline Phosphatase (46-116) U/L Troponin I (0.000-0.056) ng/mL NT-Pro-B Natriuret Pep (5-125) pg/mL Total Protein (6.4-8.2) g/dL Albumin (3.4-5.0) g/dL Globulin (2.3-3.5) g/dL Albumin/Globulin Ratio (1.2-2.2) Procalcitonin < 0.05 ng/mL Urine Color (YELLOW) Urine Appearance (CLEAR) Urine pH (5.0-8.0) Ur Specific [place] (1.008-1.030) Urine Protein (NEGATIVE) mg/dL Urine Glucose (UA) (NEGATIVE) mg/dL Urine Ketones (NEGATIVE) mg/dL Urine Occult Blood (NEGATIVE) Urine Nitrite (NEGATIVE) Urine Bilirubin (NEGATIVE) Urine Urobilinogen (0.2-1.0) EU/dL Ur Leukocyte Esterase (NEGATIVE) Urine RBC (0-5) Urine WBC (0-5) Ur Epithelial Cells Amorphous Sediment Urine Bacteria Urine Mucus Urine Opiates Screen Negative (NEGATIVE) Ur Oxycodone Screen Negative (NEGATIVE) Urine Methadone Screen Negative (NEGATIVE) Ur Propoxyphene Screen Negative (NEGATIVE) Ur Barbiturates Screen Negative (NEGATIVE) Ur Tricyclics Screen Negative (NEGATIVE) Ur Phencyclidine Scrn Negative (NEGATIVE) Ur Amphetamine Screen Negative (NEGATIVE) U Methamphetamines Scrn Negative (NEGATIVE) Urine MDMA Screen Negative (NEGATIVE) U Benzodiazepines Scrn Negative (NEGATIVE) U Cocaine Metab Screen Negative (NEGATIVE) U Marijuana (THC) Screen Negative (NEGATIVE) Ethyl Alcohol mg/dL Influenza Type A RNA (NEGATIVE) RSV RNA (INAAT) (NEGATIVE) Influenza Type B RNA (NEGATIVE) SARS-CoV-2 RNA (FRANCES) (NEGATIVE) 02/15/21 02/15/21 02/15/21 Range/Units 18:53 19:40 21:05 WBC (4.5-11.0) K/uL RBC (4.30-5.90) M/uL Hgb (12.0-15.0) g/dL Hct (40.0-54.0) % MCV (80-98) fL MCH (27-31) pg MCHC (32-36) % Plt Count (150-400) K/uL Neut % (Auto) (36-66) % Lymph % (Auto) (24-44) % Alexander % (Auto) (2-6) % Eos % (Auto) (2-4) % Baso % (Auto) (0-1) % D-Dimer, Quantitative (0.0-500.0) ng/mL Puncture Site ABG pH (7.350-7.450) ABG pCO2 (35.0-42.0) mmHg ABG pO2 (75.0-100.0) mmHg ABG HCO3 (22.0-26.0) mmol/L ABG Total CO2 (23.0-27.0) mmol/L ABG O2 Saturation (95.0-98.0) % ABG O2 Content (15.0-23.0) %vol ABG Base Excess mm/L ABG Hemoglobin (13.5-18.0) g/dL ABG Oxyhemoglobin % ABG Carboxyhemoglobin (0.0-1.6) % ABG Methemoglobin % Toribio Test O2 Delivery Device Oxygen Flow Rate L Sodium (140-148) mmol/L Potassium (3.6-5.2) mmol/L Chloride (100-108) mmol/L Carbon Dioxide (21-32) mmol/L Anion Gap (5.0-14.0) mmol/L BUN (7-18) mg/dL Creatinine (0.8-1.3) mg/dL Est Cr Clr Drug Dosing mL/min Estimated GFR (MDRD) (>60) Glucose (74-106) mg/dL POC Glucose 188 H (74-106) mg/dL Lactic Acid (0.4-2.0) mmol/L Calcium (8.5-10.1) mg/dL Magnesium (1.8-2.4) mg/dL Total Bilirubin (0.2-1.0) mg/dL AST (15-37) U/L ALT (12-78) U/L Alkaline Phosphatase (46-116) U/L Troponin I < 0.017 (0.000-0.056) ng/mL NT-Pro-B Natriuret Pep (5-125) pg/mL Total Protein (6.4-8.2) g/dL Albumin (3.4-5.0) g/dL Globulin (2.3-3.5) g/dL Albumin/Globulin Ratio (1.2-2.2) Procalcitonin ng/mL Urine Color (YELLOW) Urine Appearance (CLEAR) Urine pH (5.0-8.0) Ur Specific [place] (1.008-1.030) Urine Protein (NEGATIVE) mg/dL Urine Glucose (UA) (NEGATIVE) mg/dL Urine Ketones (NEGATIVE) mg/dL Urine Occult Blood (NEGATIVE) Urine Nitrite (NEGATIVE) Urine Bilirubin (NEGATIVE) Urine Urobilinogen (0.2-1.0) EU/dL Ur Leukocyte Esterase (NEGATIVE) Urine RBC (0-5) Urine WBC (0-5) Ur Epithelial Cells Amorphous Sediment Urine Bacteria Urine Mucus Urine Opiates Screen (NEGATIVE) Ur Oxycodone Screen (NEGATIVE) Urine Methadone Screen (NEGATIVE) Ur Propoxyphene Screen (NEGATIVE) Ur Barbiturates Screen (NEGATIVE) Ur Tricyclics Screen (NEGATIVE) Ur Phencyclidine Scrn (NEGATIVE) Ur Amphetamine Screen (NEGATIVE) U Methamphetamines Scrn (NEGATIVE) Urine MDMA Screen (NEGATIVE) U Benzodiazepines Scrn (NEGATIVE) U Cocaine Metab Screen (NEGATIVE) U Marijuana (THC) Screen (NEGATIVE) Ethyl Alcohol mg/dL Influenza Type A RNA Negative (NEGATIVE) RSV RNA (INAAT) Negative (NEGATIVE) Influenza Type B RNA Negative (NEGATIVE) SARS-CoV-2 RNA (FRANCES) Negative (NEGATIVE) 02/16/21 02/16/21 02/16/21 Range/Units 05:59 05:59 05:59 WBC 12.6 H (4.5-11.0) K/uL RBC 5.61 (4.30-5.90) M/uL Hgb 15.7 H (12.0-15.0) g/dL Hct 45.7 (40.0-54.0) % MCV 82 (80-98) fL MCH 28 (27-31) pg MCHC 34 (32-36) % Plt Count 321 (150-400) K/uL Neut % (Auto) 89.6 H (36-66) % Lymph % (Auto) 5.5 L (24-44) % Alexander % (Auto) 4.6 (2-6) % Eos % (Auto) 0.1 L (2-4) % Baso % (Auto) 0.2 (0-1) % D-Dimer, Quantitative (0.0-500.0) ng/mL Puncture Site ABG pH (7.350-7.450) ABG pCO2 (35.0-42.0) mmHg ABG pO2 (75.0-100.0) mmHg ABG HCO3 (22.0-26.0) mmol/L ABG Total CO2 (23.0-27.0) mmol/L ABG O2 Saturation (95.0-98.0) % ABG O2 Content (15.0-23.0) %vol ABG Base Excess mm/L ABG Hemoglobin (13.5-18.0) g/dL ABG Oxyhemoglobin % ABG Carboxyhemoglobin (0.0-1.6) % ABG Methemoglobin % Toribio Test O2 Delivery Device Oxygen Flow Rate L Sodium 132 L (140-148) mmol/L Potassium 5.7 H (3.6-5.2) mmol/L Chloride 95 L (100-108) mmol/L Carbon Dioxide 29 (21-32) mmol/L Anion Gap 13.7 (5.0-14.0) mmol/L BUN 12 (7-18) mg/dL Creatinine 0.8 (0.8-1.3) mg/dL Est Cr Clr Drug Dosing 109.13 mL/min Estimated GFR (MDRD) > 60 (>60) Glucose 332 H (74-106) mg/dL POC Glucose (74-106) mg/dL Lactic Acid 0.9 (0.4-2.0) mmol/L Calcium 8.6 (8.5-10.1) mg/dL Magnesium 2.4 (1.8-2.4) mg/dL Total Bilirubin (0.2-1.0) mg/dL AST (15-37) U/L ALT (12-78) U/L Alkaline Phosphatase (46-116) U/L Troponin I (0.000-0.056) ng/mL NT-Pro-B Natriuret Pep (5-125) pg/mL Total Protein (6.4-8.2) g/dL Albumin (3.4-5.0) g/dL Globulin (2.3-3.5) g/dL Albumin/Globulin Ratio (1.2-2.2) Procalcitonin ng/mL Urine Color (YELLOW) Urine Appearance (CLEAR) Urine pH (5.0-8.0) Ur Specific [place] (1.008-1.030) Urine Protein (NEGATIVE) mg/dL Urine Glucose (UA) (NEGATIVE) mg/dL Urine Ketones (NEGATIVE) mg/dL Urine Occult Blood (NEGATIVE) Urine Nitrite (NEGATIVE) Urine Bilirubin (NEGATIVE) Urine Urobilinogen (0.2-1.0) EU/dL Ur Leukocyte Esterase (NEGATIVE) Urine RBC (0-5) Urine WBC (0-5) Ur Epithelial Cells Amorphous Sediment Urine Bacteria Urine Mucus Urine Opiates Screen (NEGATIVE) Ur Oxycodone Screen (NEGATIVE) Urine Methadone Screen (NEGATIVE) Ur Propoxyphene Screen (NEGATIVE) Ur Barbiturates Screen (NEGATIVE) Ur Tricyclics Screen (NEGATIVE) Ur Phencyclidine Scrn (NEGATIVE) Ur Amphetamine Screen (NEGATIVE) U Methamphetamines Scrn (NEGATIVE) Urine MDMA Screen (NEGATIVE) U Benzodiazepines Scrn (NEGATIVE) U Cocaine Metab Screen (NEGATIVE) U Marijuana (THC) Screen (NEGATIVE) Ethyl Alcohol mg/dL Influenza Type A RNA (NEGATIVE) RSV RNA (INAAT) (NEGATIVE) Influenza Type B RNA (NEGATIVE) SARS-CoV-2 RNA (FRANCES) (NEGATIVE) 02/16/21 02/16/21 02/16/21 Range/Units 05:59 07:14 11:16 WBC (4.5-11.0) K/uL RBC (4.30-5.90) M/uL Hgb (12.0-15.0) g/dL Hct (40.0-54.0) % MCV (80-98) fL MCH (27-31) pg MCHC (32-36) % Plt Count (150-400) K/uL Neut % (Auto) (36-66) % Lymph % (Auto) (24-44) % Alexander % (Auto) (2-6) % Eos % (Auto) (2-4) % Baso % (Auto) (0-1) % D-Dimer, Quantitative (0.0-500.0) ng/mL Puncture Site ABG pH (7.350-7.450) ABG pCO2 (35.0-42.0) mmHg ABG pO2 (75.0-100.0) mmHg ABG HCO3 (22.0-26.0) mmol/L ABG Total CO2 (23.0-27.0) mmol/L ABG O2 Saturation (95.0-98.0) % ABG O2 Content (15.0-23.0) %vol ABG Base Excess mm/L ABG Hemoglobin (13.5-18.0) g/dL ABG Oxyhemoglobin % ABG Carboxyhemoglobin (0.0-1.6) % ABG Methemoglobin % Toribio Test O2 Delivery Device Oxygen Flow Rate L Sodium (140-148) mmol/L Potassium (3.6-5.2) mmol/L Chloride (100-108) mmol/L Carbon Dioxide (21-32) mmol/L Anion Gap (5.0-14.0) mmol/L BUN (7-18) mg/dL Creatinine (0.8-1.3) mg/dL Est Cr Clr Drug Dosing mL/min Estimated GFR (MDRD) (>60) Glucose (74-106) mg/dL POC Glucose 344 H 434 H* (74-106) mg/dL Lactic Acid (0.4-2.0) mmol/L Calcium (8.5-10.1) mg/dL Magnesium (1.8-2.4) mg/dL Total Bilirubin (0.2-1.0) mg/dL AST (15-37) U/L ALT (12-78) U/L Alkaline Phosphatase (46-116) U/L Troponin I (0.000-0.056) ng/mL NT-Pro-B Natriuret Pep (5-125) pg/mL Total Protein (6.4-8.2) g/dL Albumin (3.4-5.0) g/dL Globulin (2.3-3.5) g/dL Albumin/Globulin Ratio (1.2-2.2) Procalcitonin < 0.05 ng/mL Urine Color (YELLOW) Urine Appearance (CLEAR) Urine pH (5.0-8.0) Ur Specific [place] (1.008-1.030) Urine Protein (NEGATIVE) mg/dL Urine Glucose (UA) (NEGATIVE) mg/dL Urine Ketones (NEGATIVE) mg/dL Urine Occult Blood (NEGATIVE) Urine Nitrite (NEGATIVE) Urine Bilirubin (NEGATIVE) Urine Urobilinogen (0.2-1.0) EU/dL Ur Leukocyte Esterase (NEGATIVE) Urine RBC (0-5) Urine WBC (0-5) Ur Epithelial Cells Amorphous Sediment Urine Bacteria Urine Mucus Urine Opiates Screen (NEGATIVE) Ur Oxycodone Screen (NEGATIVE) Urine Methadone Screen (NEGATIVE) Ur Propoxyphene Screen (NEGATIVE) Ur Barbiturates Screen (NEGATIVE) Ur Tricyclics Screen (NEGATIVE) Ur Phencyclidine Scrn (NEGATIVE) Ur Amphetamine Screen (NEGATIVE) U Methamphetamines Scrn (NEGATIVE) Urine MDMA Screen (NEGATIVE) U Benzodiazepines Scrn (NEGATIVE) U Cocaine Metab Screen (NEGATIVE) U Marijuana (THC) Screen (NEGATIVE) Ethyl Alcohol mg/dL Influenza Type A RNA (NEGATIVE) RSV RNA (INAAT) (NEGATIVE) Influenza Type B RNA (NEGATIVE) SARS-CoV-2 RNA (FRANCES) (NEGATIVE) Med Orders - Current: Current Medications Acetaminophen (Acetaminophen 325 Mg Tab) 650 mg PO Q4H PRN PRN Reason: Pain (Mild 1-3)/fever Albuterol (Albuterol 0.083% 2.5 Mg/3 Ml Neb Soln) 2.5 mg NEB Q4H PRN PRN Reason: Shortness Of Breath/wheezing Albuterol/Ipratropium (Albuterol/Ipratropium 3.0-0.5 Mg/3 Ml Neb Soln) 3 ml NEB QIDRT [facility] Last Admin: 02/16/21 10:22 Dose: 3 ml Documented by: Aspirin (Aspirin 325 Mg Tab.Ec) 325 mg PO DAILY [facility] Last Admin: 02/16/21 09:21 Dose: 325 mg Documented by: Chlordiazepoxide HCl (Chlordiazepoxide 25 Mg Cap) 25 mg PO Q8H [facility] Last Admin: 02/16/21 05:23 Dose: 25 mg Documented by: Dextrose (Glucose Gel 15 Gm In 37.5 Gm Tube) 15 gm PO ONETIME PRN PRN Reason: Hypoglycemia Dextrose/Water (50% Dextrose In Water 50 Ml Syringe) 50 ml IV ONETIME PRN PRN Reason: Hypoglycemia Enoxaparin Sodium (Enoxaparin 40 Mg/0.4 Ml Syringe) 40 mg SUBCUT BEDTIME [facility] Last Admin: 02/15/21 22:02 Dose: 40 mg Documented by: Folic Acid (Folic Acid 1 Mg Tab) 1 mg PO DAILY [facility] Last Admin: 02/16/21 09:21 Dose: 1 mg Documented by: Gabapentin (Gabapentin 400 Mg Cap) 400 mg PO Q8H [facility] Stop: 02/19/21 21:01 Last Admin: 02/16/21 05:16 Dose: 400 mg Documented by: Glucagon (Glucagon,Human Recombinant 1 Mg Vial) 1 mg IM ASDIRECTED PRN PRN Reason: Hypoglycemia Ceftriaxone Sodium 1 gm/ (Sodium Chloride) 50 mls @ 100 mls/hr IV Q24H [facility] Last Admin: 02/15/21 22:03 Dose: 100 mls/hr Documented by: Doxycycline Hyclate 100 mg/ (Sodium Chloride) 100 mls @ 100 mls/hr IV Q12H [facility] Influenza Virus Vaccine (Flu Vacc [id number](6mos Up)/Pf 60 Mcg/0.5 Ml Syringe) 60 mcg IM .ONCE ONE Stop: 02/17/21 10:01 Insulin Glargine (Insulin Glargine,Human Rec. Analog 100 Units/Ml 3 Ml Pen) 26 units SUBCUT BEDTIME [facility] Last Admin: 02/15/21 21:57 Dose: 26 unit Documented by: Insulin Human Lispro (Insulin Lispro 100 Unit/Ml 3 Ml Kwikpen) 0 unit SUBCUT QIDACANDBED [facility]; Protocol Last Admin: 02/16/21 07:19 Dose: 8 unit Documented by: Lorazepam (Lorazepam 1 Mg Tab) 1 - 3 mg PO ASDIRECTED PRN; Protocol PRN Reason: CIWA protocol Last Admin: 02/16/21 11:05 Dose: 1 mg Documented by: Methylprednisolone Sodium Succinate (Methylprednisolone Sodium Succinate 40 Mg/1 Ml Sdv) 40 mg IVPUSH Q8H [facility] Stop: 02/16/21 23:45 Last Admin: 02/16/21 05:16 Dose: 40 mg Documented by: Nicotine (Nicotine 21 Mg/24 Hr Patch) 21 mg TRDERM DAILY [facility] Last Admin: 02/16/21 09:21 Dose: 21 mg Documented by: Nicotine Polacrilex (Nicotine Polacrilex 2 Mg Gum) 4 mg CHEW Q1H PRN PRN Reason: Other Ondansetron HCl (Ondansetron 4 Mg/2 Ml Sdv) 4 mg IV Q4H PRN PRN Reason: Nausea/Vomiting Polyethylene Glycol (Polyethylene Glycol 3350 Powder 17 Gm Packet) 17 gm PO DAILY PRN PRN Reason: Constipation Sodium Chloride (Sodium Chloride 0.9% 10 Ml Syringe) 10 ml FLUSH ASDIRECTED PRN PRN Reason: Keep Vein Open Thiamine HCl (Thiamine 100 Mg Tab) 100 mg PO DAILY [facility] Last Admin: 02/16/21 09:21 Dose: 100 mg Documented by: Discontinued Medications Albuterol/Ipratropium (Albuterol/Ipratropium 3.0-0.5 Mg/3 Ml Neb Soln) 3 ml NEB QID [facility] Last Admin: 02/16/21 05:16 Dose: 3 ml Documented by: Aspirin (Aspirin 81 Mg Tab.Chew) 324 mg PO ONETIME ONE Stop: 02/15/21 15:57 Last Admin: 02/15/21 16:15 Dose: 324 mg Documented by: Al Hydroxide/Mg Hydroxide 15 (ml/ Lidocaine HCl 15 ml) 0 ml PO ONETIME ONE Stop: 02/15/21 16:47 Last Admin: 02/15/21 16:51 Dose: 30 ml Documented by: Famotidine (Famotidine 20 Mg/2 Ml Sdv) 20 mg IVPUSH ONETIME ONE Stop: 02/15/21 16:47 Last Admin: 02/15/21 16:54 Dose: 20 mg Documented by: Sodium Chloride (Normal Saline) 100 mls @ 3.5 mls/sec IV ASDIRECTED [facility] Last Admin: 02/15/21 17:14 Dose: 4 mls/sec Documented by: Multivitamins/Minerals 10 ml/Thiamine HCl 100 mg/ Folic Acid 1 mg/ Magnesium Sulfate 3 gm/ Sodium Chloride 1,017.2 mls @ 150 mls/hr IV ASDIRECTED [facility] Last Admin: 02/15/21 20:33 Dose: 150 mls/hr Documented by: Sodium Chloride (Normal Saline) 1,000 mls @ 125 mls/hr IV ASDIRECTED [facility] Last Admin: 02/16/21 05:10 Dose: 125 mls/hr Documented by: Doxycycline Hyclate 100 mg/ (Sodium Chloride) 100 mls @ 100 mls/hr IV Q12H [facility] Last Admin: 02/16/21 00:36 Dose: 100 mls/hr Documented by: Influenza Virus Vaccine (Pharmacy To Dose - Influenza Vaccine) 1 each IM ONETIME ONE Stop: 02/17/21 10:01 Insulin Human Lispro (Insulin Lispro 100 Unit/Ml 3 Ml Kwikpen) 15 unit SUBCUT ONETIME ONE Stop: 02/16/21 11:51 Iopamidol (Iopamidol 755 Mg/Ml 100 Ml Bottle) 100 ml IV . DIRECTED [facility] Last Admin: 02/15/21 17:14 Dose: 100 ml Documented by: Lorazepam (Lorazepam 2 Mg/Ml Sdv) 0.5 mg IVPUSH ONETIME ONE Stop: 02/15/21 18:02 Last Admin: 02/15/21 19:36 Dose: 0.5 mg Documented by: Lorazepam (Lorazepam 2 Mg/Ml Sdv) 0.5 mg IVPUSH ONETIME ONE Stop: 02/15/21 18:56 Last Admin: 02/15/21 23:01 Dose: Not Given Documented by: Lorazepam (Lorazepam 1 Mg Tab) 0 mg PO ASDIRECTED [facility]; Protocol Morphine Sulfate (Morphine 2 Mg/Ml Syringe) 1 mg IVPUSH ONETIME ONE Stop: 02/15/21 16:46 Last Admin: 02/15/21 18:18 Dose: 1 mg Documented by: Nitroglycerin (Nitroglycerin 0.4 Mg Tab.Sl) 0.4 mg SL ONETIME ONE Stop: 02/15/21 16:46 Last Admin: 02/15/21 17:48 Dose: 0.4 mg Documented by: Sodium Chloride (Sodium Chloride 0.9% 10 Ml Syringe) 10 ml FLUSH ASDIRECTED PRN PRN Reason: Keep Vein Open Last Admin: 02/15/21 16:17 Dose: 10 ml Documented by: Sodium Chloride (Sodium Chloride 0.9% 10 Ml Syringe) 10 ml FLUSH ONETIME ONE Stop: 02/15/21 16:44 Last Admin: 02/15/21 17:14 Dose: 10 ml Documented by: Thiamine HCl (Thiamine 200 Mg/2 Ml Mdv) Confirm Administered Dose 200 mg .ROUTE .STK-MED ONE Stop: 02/15/21 21:54 Last Admin: 02/15/21 22:58 Dose: Not Given Documented by: - Exam Quality Assessment: Supplemental Oxygen General: Alert, Oriented, Cooperative, Moderate Distress HEENT: Pupils Equal Lungs: Rhonchi (moderate diffuse). No: Normal Respiratory Effort (tachypnea) Cardiovascular: Regular Rhythm, Tachycardia GI/Abdominal Exam: Soft, No Distention Extremities: Pedal Edema (mild bilateral ). No: Increased Warmth Skin: Warm, Dry Psy/Mental Status: Alert, Anxious - Patient Data Lab Results Last 24 hrs: Laboratory Results - last 24 hr 02/15/21 02/15/21 02/15/21 Range/Units 15:05 15:05 15:05 WBC 10.9 (4.5-11.0) K/uL RBC 5.60 (4.30-5.90) M/uL Hgb 15.9 H (12.0-15.0) g/dL Hct 46.4 (40.0-54.0) % MCV 83 (80-98) fL MCH 28 (27-31) pg MCHC 34 (32-36) % Plt Count 356 (150-400) K/uL Neut % (Auto) 65.5 (36-66) % Lymph % (Auto) 24.4 (24-44) % Alexander % (Auto) 7.1 H (2-6) % Eos % (Auto) 2.5 (2-4) % Baso % (Auto) 0.5 (0-1) % D-Dimer, Quantitative (0.0-500.0) ng/mL Puncture Site ABG pH (7.350-7.450) ABG pCO2 (35.0-42.0) mmHg ABG pO2 (75.0-100.0) mmHg ABG HCO3 (22.0-26.0) mmol/L ABG Total CO2 (23.0-27.0) mmol/L ABG O2 Saturation (95.0-98.0) % ABG O2 Content (15.0-23.0) %vol ABG Base Excess mm/L ABG Hemoglobin (13.5-18.0) g/dL ABG Oxyhemoglobin % ABG Carboxyhemoglobin (0.0-1.6) % ABG Methemoglobin % Toribio Test O2 Delivery Device Oxygen Flow Rate L Sodium 135 L (140-148) mmol/L Potassium 4.3 (3.6-5.2) mmol/L Chloride 96 L (100-108) mmol/L Carbon Dioxide 29 (21-32) mmol/L Anion Gap 14.3 H (5.0-14.0) mmol/L BUN 10 D (7-18) mg/dL Creatinine 0.7 L (0.8-1.3) mg/dL Est Cr Clr Drug Dosing 124.71 mL/min Estimated GFR (MDRD) > 60 (>60) Glucose 204 H (74-106) mg/dL POC Glucose (74-106) mg/dL Lactic Acid 2.8 H (0.4-2.0) mmol/L Calcium 8.3 L (8.5-10.1) mg/dL Magnesium (1.8-2.4) mg/dL Total Bilirubin 0.2 (0.2-1.0) mg/dL AST 20 (15-37) U/L ALT 26 (12-78) U/L Alkaline Phosphatase 96 (46-116) U/L Troponin I (0.000-0.056) ng/mL NT-Pro-B Natriuret Pep (5-125) pg/mL Total Protein 7.1 (6.4-8.2) g/dL Albumin 3.2 L (3.4-5.0) g/dL Globulin 3.9 H (2.3-3.5) g/dL Albumin/Globulin Ratio 0.8 L (1.2-2.2) Procalcitonin ng/mL Urine Color (YELLOW) Urine Appearance (CLEAR) Urine pH (5.0-8.0) Ur Specific [place] (1.008-1.030) Urine Protein (NEGATIVE) mg/dL Urine Glucose (UA) (NEGATIVE) mg/dL Urine Ketones (NEGATIVE) mg/dL Urine Occult Blood (NEGATIVE) Urine Nitrite (NEGATIVE) Urine Bilirubin (NEGATIVE) Urine Urobilinogen (0.2-1.0) EU/dL Ur Leukocyte Esterase (NEGATIVE) Urine RBC (0-5) Urine WBC (0-5) Ur Epithelial Cells Amorphous Sediment Urine Bacteria Urine Mucus Urine Opiates Screen (NEGATIVE) Ur Oxycodone Screen (NEGATIVE) Urine Methadone Screen (NEGATIVE) Ur Propoxyphene Screen (NEGATIVE) Ur Barbiturates Screen (NEGATIVE) Ur Tricyclics Screen (NEGATIVE) Ur Phencyclidine Scrn (NEGATIVE) Ur Amphetamine Screen (NEGATIVE) U Methamphetamines Scrn (NEGATIVE) Urine MDMA Screen (NEGATIVE) U Benzodiazepines Scrn (NEGATIVE) U Cocaine Metab Screen (NEGATIVE) U Marijuana (THC) Screen (NEGATIVE) Ethyl Alcohol mg/dL Influenza Type A RNA (NEGATIVE) RSV RNA (INAAT) (NEGATIVE) Influenza Type B RNA (NEGATIVE) SARS-CoV-2 RNA (FRANCES) (NEGATIVE) 02/15/21 02/15/21 02/15/21 Range/Units 15:05 15:05 15:05 WBC (4.5-11.0) K/uL RBC (4.30-5.90) M/uL Hgb (12.0-15.0) g/dL Hct (40.0-54.0) % MCV (80-98) fL MCH (27-31) pg MCHC (32-36) % Plt Count (150-400) K/uL Neut % (Auto) (36-66) % Lymph % (Auto) (24-44) % Alexander % (Auto) (2-6) % Eos % (Auto) (2-4) % Baso % (Auto) (0-1) % D-Dimer, Quantitative 2171.25 H (0.0-500.0) ng/mL Puncture Site ABG pH (7.350-7.450) ABG pCO2 (35.0-42.0) mmHg ABG pO2 (75.0-100.0) mmHg ABG HCO3 (22.0-26.0) mmol/L ABG Total CO2 (23.0-27.0) mmol/L ABG O2 Saturation (95.0-98.0) % ABG O2 Content (15.0-23.0) %vol ABG Base Excess mm/L ABG Hemoglobin (13.5-18.0) g/dL ABG Oxyhemoglobin % ABG Carboxyhemoglobin (0.0-1.6) % ABG Methemoglobin % Toribio Test O2 Delivery Device Oxygen Flow Rate L Sodium (140-148) mmol/L Potassium (3.6-5.2) mmol/L Chloride (100-108) mmol/L Carbon Dioxide (21-32) mmol/L Anion Gap (5.0-14.0) mmol/L BUN (7-18) mg/dL Creatinine (0.8-1.3) mg/dL Est Cr Clr Drug Dosing mL/min Estimated GFR (MDRD) (>60) Glucose (74-106) mg/dL POC Glucose (74-106) mg/dL Lactic Acid (0.4-2.0) mmol/L Calcium (8.5-10.1) mg/dL Magnesium (1.8-2.4) mg/dL Total Bilirubin (0.2-1.0) mg/dL AST (15-37) U/L ALT (12-78) U/L Alkaline Phosphatase (46-116) U/L Troponin I (0.000-0.056) ng/mL NT-Pro-B Natriuret Pep 61 (5-125) pg/mL Total Protein (6.4-8.2) g/dL Albumin (3.4-5.0) g/dL Globulin (2.3-3.5) g/dL Albumin/Globulin Ratio (1.2-2.2) Procalcitonin ng/mL Urine Color (YELLOW) Urine Appearance (CLEAR) Urine pH (5.0-8.0) Ur Specific [place] (1.008-1.030) Urine Protein (NEGATIVE) mg/dL Urine Glucose (UA) (NEGATIVE) mg/dL Urine Ketones (NEGATIVE) mg/dL Urine Occult Blood (NEGATIVE) Urine Nitrite (NEGATIVE) Urine Bilirubin (NEGATIVE) Urine Urobilinogen (0.2-1.0) EU/dL Ur Leukocyte Esterase (NEGATIVE) Urine RBC (0-5) Urine WBC (0-5) Ur Epithelial Cells Amorphous Sediment Urine Bacteria Urine Mucus Urine Opiates Screen (NEGATIVE) Ur Oxycodone Screen (NEGATIVE) Urine Methadone Screen (NEGATIVE) Ur Propoxyphene Screen (NEGATIVE) Ur Barbiturates Screen (NEGATIVE) Ur Tricyclics Screen (NEGATIVE) Ur Phencyclidine Scrn (NEGATIVE) Ur Amphetamine Screen (NEGATIVE) U Methamphetamines Scrn (NEGATIVE) Urine MDMA Screen (NEGATIVE) U Benzodiazepines Scrn (NEGATIVE) U Cocaine Metab Screen (NEGATIVE) U Marijuana (THC) Screen (NEGATIVE) Ethyl Alcohol 346 mg/dL Influenza Type A RNA (NEGATIVE) RSV RNA (INAAT) (NEGATIVE) Influenza Type B RNA (NEGATIVE) SARS-CoV-2 RNA (FRANCES) (NEGATIVE) 02/15/21 02/15/21 02/15/21 Range/Units 15:05 16:12 16:23 WBC (4.5-11.0) K/uL RBC (4.30-5.90) M/uL Hgb (12.0-15.0) g/dL Hct (40.0-54.0) % MCV (80-98) fL MCH (27-31) pg MCHC (32-36) % Plt Count (150-400) K/uL Neut % (Auto) (36-66) % Lymph % (Auto) (24-44) % Alexander % (Auto) (2-6) % Eos % (Auto) (2-4) % Baso % (Auto) (0-1) % D-Dimer, Quantitative (0.0-500.0) ng/mL Puncture Site Lt radial ABG pH 7.335 L (7.350-7.450) ABG pCO2 55.7 H (35.0-42.0) mmHg ABG pO2 64.5 L (75.0-100.0) mmHg ABG HCO3 28.9 H (22.0-26.0) mmol/L ABG Total CO2 25.4 (23.0-27.0) mmol/L ABG O2 Saturation 88.6 L (95.0-98.0) % ABG O2 Content 18.7 (15.0-23.0) %vol ABG Base Excess 2.1 mm/L ABG Hemoglobin 15.7 (13.5-18.0) g/dL ABG Oxyhemoglobin 84.7 % ABG Carboxyhemoglobin 3.7 H (0.0-1.6) % ABG Methemoglobin 0.7 % Toribio Test Pass O2 Delivery Device Nasal cannula Oxygen Flow Rate 6.0 L Sodium (140-148) mmol/L Potassium (3.6-5.2) mmol/L Chloride (100-108) mmol/L Carbon Dioxide (21-32) mmol/L Anion Gap (5.0-14.0) mmol/L BUN (7-18) mg/dL Creatinine (0.8-1.3) mg/dL Est Cr Clr Drug Dosing mL/min Estimated GFR (MDRD) (>60) Glucose (74-106) mg/dL POC Glucose (74-106) mg/dL Lactic Acid (0.4-2.0) mmol/L Calcium (8.5-10.1) mg/dL Magnesium (1.8-2.4) mg/dL Total Bilirubin (0.2-1.0) mg/dL AST (15-37) U/L ALT (12-78) U/L Alkaline Phosphatase (46-116) U/L Troponin I < 0.017 (0.000-0.056) ng/mL NT-Pro-B Natriuret Pep (5-125) pg/mL Total Protein (6.4-8.2) g/dL Albumin (3.4-5.0) g/dL Globulin (2.3-3.5) g/dL Albumin/Globulin Ratio (1.2-2.2) Procalcitonin ng/mL Urine Color Yellow (YELLOW) Urine Appearance Slightly cloudy A (CLEAR) Urine pH 5.5 (5.0-8.0) Ur Specific [place] 1.025 (1.008-1.030) Urine Protein >=300 H (NEGATIVE) mg/dL Urine Glucose (UA) 100 H (NEGATIVE) mg/dL Urine Ketones Negative (NEGATIVE) mg/dL Urine Occult Blood Moderate H (NEGATIVE) Urine Nitrite Negative (NEGATIVE) Urine Bilirubin Negative (NEGATIVE) Urine Urobilinogen 0.2 (0.2-1.0) EU/dL Ur Leukocyte Esterase Negative (NEGATIVE) Urine RBC 0-5 (0-5) Urine WBC 0-5 (0-5) Ur Epithelial Cells Moderate Amorphous Sediment Few Urine Bacteria Rare Urine Mucus Not seen Urine Opiates Screen (NEGATIVE) Ur Oxycodone Screen (NEGATIVE) Urine Methadone Screen (NEGATIVE) Ur Propoxyphene Screen (NEGATIVE) Ur Barbiturates Screen (NEGATIVE) Ur Tricyclics Screen (NEGATIVE) Ur Phencyclidine Scrn (NEGATIVE) Ur Amphetamine Screen (NEGATIVE) U Methamphetamines Scrn (NEGATIVE) Urine MDMA Screen (NEGATIVE) U Benzodiazepines Scrn (NEGATIVE) U Cocaine Metab Screen (NEGATIVE) U Marijuana (THC) Screen (NEGATIVE) Ethyl Alcohol mg/dL Influenza Type A RNA (NEGATIVE) RSV RNA (INAAT) (NEGATIVE) Influenza Type B RNA (NEGATIVE) SARS-CoV-2 RNA (FRANCES) (NEGATIVE) 02/15/21 02/15/21 02/15/21 Range/Units 16:23 18:40 18:51 WBC (4.5-11.0) K/uL RBC (4.30-5.90) M/uL Hgb (12.0-15.0) g/dL Hct (40.0-54.0) % MCV (80-98) fL MCH (27-31) pg MCHC (32-36) % Plt Count (150-400) K/uL Neut % (Auto) (36-66) % Lymph % (Auto) (24-44) % Alexander % (Auto) (2-6) % Eos % (Auto) (2-4) % Baso % (Auto) (0-1) % D-Dimer, Quantitative (0.0-500.0) ng/mL Puncture Site ABG pH (7.350-7.450) ABG pCO2 (35.0-42.0) mmHg ABG pO2 (75.0-100.0) mmHg ABG HCO3 (22.0-26.0) mmol/L ABG Total CO2 (23.0-27.0) mmol/L ABG O2 Saturation (95.0-98.0) % ABG O2 Content (15.0-23.0) %vol ABG Base Excess mm/L ABG Hemoglobin (13.5-18.0) g/dL ABG Oxyhemoglobin % ABG Carboxyhemoglobin (0.0-1.6) % ABG Methemoglobin % Toribio Test O2 Delivery Device Oxygen Flow Rate L Sodium (140-148) mmol/L Potassium (3.6-5.2) mmol/L Chloride (100-108) mmol/L Carbon Dioxide (21-32) mmol/L Anion Gap (5.0-14.0) mmol/L BUN (7-18) mg/dL Creatinine (0.8-1.3) mg/dL Est Cr Clr Drug Dosing mL/min Estimated GFR (MDRD) (>60) Glucose (74-106) mg/dL POC Glucose (74-106) mg/dL Lactic Acid 2.6 H (0.4-2.0) mmol/L Calcium (8.5-10.1) mg/dL Magnesium (1.8-2.4) mg/dL Total Bilirubin (0.2-1.0) mg/dL AST (15-37) U/L ALT (12-78) U/L Alkaline Phosphatase (46-116) U/L Troponin I (0.000-0.056) ng/mL NT-Pro-B Natriuret Pep (5-125) pg/mL Total Protein (6.4-8.2) g/dL Albumin (3.4-5.0) g/dL Globulin (2.3-3.5) g/dL Albumin/Globulin Ratio (1.2-2.2) Procalcitonin < 0.05 ng/mL Urine Color (YELLOW) Urine Appearance (CLEAR) Urine pH (5.0-8.0) Ur Specific [place] (1.008-1.030) Urine Protein (NEGATIVE) mg/dL Urine Glucose (UA) (NEGATIVE) mg/dL Urine Ketones (NEGATIVE) mg/dL Urine Occult Blood (NEGATIVE) Urine Nitrite (NEGATIVE) Urine Bilirubin (NEGATIVE) Urine Urobilinogen (0.2-1.0) EU/dL Ur Leukocyte Esterase (NEGATIVE) Urine RBC (0-5) Urine WBC (0-5) Ur Epithelial Cells Amorphous Sediment Urine Bacteria Urine Mucus Urine Opiates Screen Negative (NEGATIVE) Ur Oxycodone Screen Negative (NEGATIVE) Urine Methadone Screen Negative (NEGATIVE) Ur Propoxyphene Screen Negative (NEGATIVE) Ur Barbiturates Screen Negative (NEGATIVE) Ur Tricyclics Screen Negative (NEGATIVE) Ur Phencyclidine Scrn Negative (NEGATIVE) Ur Amphetamine Screen Negative (NEGATIVE) U Methamphetamines Scrn Negative (NEGATIVE) Urine MDMA Screen Negative (NEGATIVE) U Benzodiazepines Scrn Negative (NEGATIVE) U Cocaine Metab Screen Negative (NEGATIVE) U Marijuana (THC) Screen Negative (NEGATIVE) Ethyl Alcohol mg/dL Influenza Type A RNA (NEGATIVE) RSV RNA (INAAT) (NEGATIVE) Influenza Type B RNA (NEGATIVE) SARS-CoV-2 RNA (FRANCES) (NEGATIVE) 02/15/21 02/15/21 02/15/21 Range/Units 18:53 19:40 21:05 WBC (4.5-11.0) K/uL RBC (4.30-5.90) M/uL Hgb (12.0-15.0) g/dL Hct (40.0-54.0) % MCV (80-98) fL MCH (27-31) pg MCHC (32-36) % Plt Count (150-400) K/uL Neut % (Auto) (36-66) % Lymph % (Auto) (24-44) % Alexander % (Auto) (2-6) % Eos % (Auto) (2-4) % Baso % (Auto) (0-1) % D-Dimer, Quantitative (0.0-500.0) ng/mL Puncture Site ABG pH (7.350-7.450) ABG pCO2 (35.0-42.0) mmHg ABG pO2 (75.0-100.0) mmHg ABG HCO3 (22.0-26.0) mmol/L ABG Total CO2 (23.0-27.0) mmol/L ABG O2 Saturation (95.0-98.0) % ABG O2 Content (15.0-23.0) %vol ABG Base Excess mm/L ABG Hemoglobin (13.5-18.0) g/dL ABG Oxyhemoglobin % ABG Carboxyhemoglobin (0.0-1.6) % ABG Methemoglobin % Toribio Test O2 Delivery Device Oxygen Flow Rate L Sodium (140-148) mmol/L Potassium (3.6-5.2) mmol/L Chloride (100-108) mmol/L Carbon Dioxide (21-32) mmol/L Anion Gap (5.0-14.0) mmol/L BUN (7-18) mg/dL Creatinine (0.8-1.3) mg/dL Est Cr Clr Drug Dosing mL/min Estimated GFR (MDRD) (>60) Glucose (74-106) mg/dL POC Glucose 188 H (74-106) mg/dL Lactic Acid (0.4-2.0) mmol/L Calcium (8.5-10.1) mg/dL Magnesium (1.8-2.4) mg/dL Total Bilirubin (0.2-1.0) mg/dL AST (15-37) U/L ALT (12-78) U/L Alkaline Phosphatase (46-116) U/L Troponin I < 0.017 (0.000-0.056) ng/mL NT-Pro-B Natriuret Pep (5-125) pg/mL Total Protein (6.4-8.2) g/dL Albumin (3.4-5.0) g/dL Globulin (2.3-3.5) g/dL Albumin/Globulin Ratio (1.2-2.2) Procalcitonin ng/mL Urine Color (YELLOW) Urine Appearance (CLEAR) Urine pH (5.0-8.0) Ur Specific [place] (1.008-1.030) Urine Protein (NEGATIVE) mg/dL Urine Glucose (UA) (NEGATIVE) mg/dL Urine Ketones (NEGATIVE) mg/dL Urine Occult Blood (NEGATIVE) Urine Nitrite (NEGATIVE) Urine Bilirubin (NEGATIVE) Urine Urobilinogen (0.2-1.0) EU/dL Ur Leukocyte Esterase (NEGATIVE) Urine RBC (0-5) Urine WBC (0-5) Ur Epithelial Cells Amorphous Sediment Urine Bacteria Urine Mucus Urine Opiates Screen (NEGATIVE) Ur Oxycodone Screen (NEGATIVE) Urine Methadone Screen (NEGATIVE) Ur Propoxyphene Screen (NEGATIVE) Ur Barbiturates Screen (NEGATIVE) Ur Tricyclics Screen (NEGATIVE) Ur Phencyclidine Scrn (NEGATIVE) Ur Amphetamine Screen (NEGATIVE) U Methamphetamines Scrn (NEGATIVE) Urine MDMA Screen (NEGATIVE) U Benzodiazepines Scrn (NEGATIVE) U Cocaine Metab Screen (NEGATIVE) U Marijuana (THC) Screen (NEGATIVE) Ethyl Alcohol mg/dL Influenza Type A RNA Negative (NEGATIVE) RSV RNA (INAAT) Negative (NEGATIVE) Influenza Type B RNA Negative (NEGATIVE) SARS-CoV-2 RNA (FRANCES) Negative (NEGATIVE) 02/16/21 02/16/21 02/16/21 Range/Units 05:59 05:59 05:59 WBC 12.6 H (4.5-11.0) K/uL RBC 5.61 (4.30-5.90) M/uL Hgb 15.7 H (12.0-15.0) g/dL Hct 45.7 (40.0-54.0) % MCV 82 (80-98) fL MCH 28 (27-31) pg MCHC 34 (32-36) % Plt Count 321 (150-400) K/uL Neut % (Auto) 89.6 H (36-66) % Lymph % (Auto) 5.5 L (24-44) % Alexander % (Auto) 4.6 (2-6) % Eos % (Auto) 0.1 L (2-4) % Baso % (Auto) 0.2 (0-1) % D-Dimer, Quantitative (0.0-500.0) ng/mL Puncture Site ABG pH (7.350-7.450) ABG pCO2 (35.0-42.0) mmHg ABG pO2 (75.0-100.0) mmHg ABG HCO3 (22.0-26.0) mmol/L ABG Total CO2 (23.0-27.0) mmol/L ABG O2 Saturation (95.0-98.0) % ABG O2 Content (15.0-23.0) %vol ABG Base Excess mm/L ABG Hemoglobin (13.5-18.0) g/dL ABG Oxyhemoglobin % ABG Carboxyhemoglobin (0.0-1.6) % ABG Methemoglobin % Toribio Test O2 Delivery Device Oxygen Flow Rate L Sodium 132 L (140-148) mmol/L Potassium 5.7 H (3.6-5.2) mmol/L Chloride 95 L (100-108) mmol/L Carbon Dioxide 29 (21-32) mmol/L Anion Gap 13.7 (5.0-14.0) mmol/L BUN 12 (7-18) mg/dL Creatinine 0.8 (0.8-1.3) mg/dL Est Cr Clr Drug Dosing 109.13 mL/min Estimated GFR (MDRD) > 60 (>60) Glucose 332 H (74-106) mg/dL POC Glucose (74-106) mg/dL Lactic Acid 0.9 (0.4-2.0) mmol/L Calcium 8.6 (8.5-10.1) mg/dL Magnesium 2.4 (1.8-2.4) mg/dL Total Bilirubin (0.2-1.0) mg/dL AST (15-37) U/L ALT (12-78) U/L Alkaline Phosphatase (46-116) U/L Troponin I (0.000-0.056) ng/mL NT-Pro-B Natriuret Pep (5-125) pg/mL Total Protein (6.4-8.2) g/dL Albumin (3.4-5.0) g/dL Globulin (2.3-3.5) g/dL Albumin/Globulin Ratio (1.2-2.2) Procalcitonin ng/mL Urine Color (YELLOW) Urine Appearance (CLEAR) Urine pH (5.0-8.0) Ur Specific [place] (1.008-1.030) Urine Protein (NEGATIVE) mg/dL Urine Glucose (UA) (NEGATIVE) mg/dL Urine Ketones (NEGATIVE) mg/dL Urine Occult Blood (NEGATIVE) Urine Nitrite (NEGATIVE) Urine Bilirubin (NEGATIVE) Urine Urobilinogen (0.2-1.0) EU/dL Ur Leukocyte Esterase (NEGATIVE) Urine RBC (0-5) Urine WBC (0-5) Ur Epithelial Cells Amorphous Sediment Urine Bacteria Urine Mucus Urine Opiates Screen (NEGATIVE) Ur Oxycodone Screen (NEGATIVE) Urine Methadone Screen (NEGATIVE) Ur Propoxyphene Screen (NEGATIVE) Ur Barbiturates Screen (NEGATIVE) Ur Tricyclics Screen (NEGATIVE) Ur Phencyclidine Scrn (NEGATIVE) Ur Amphetamine Screen (NEGATIVE) U Methamphetamines Scrn (NEGATIVE) Urine MDMA Screen (NEGATIVE) U Benzodiazepines Scrn (NEGATIVE) U Cocaine Metab Screen (NEGATIVE) U Marijuana (THC) Screen (NEGATIVE) Ethyl Alcohol mg/dL Influenza Type A RNA (NEGATIVE) RSV RNA (INAAT) (NEGATIVE) Influenza Type B RNA (NEGATIVE) SARS-CoV-2 RNA (FRANCES) (NEGATIVE) 02/16/21 02/16/21 02/16/21 Range/Units 05:59 07:14 11:16 WBC (4.5-11.0) K/uL RBC (4.30-5.90) M/uL Hgb (12.0-15.0) g/dL Hct (40.0-54.0) % MCV (80-98) fL MCH (27-31) pg MCHC (32-36) % Plt Count (150-400) K/uL Neut % (Auto) (36-66) % Lymph % (Auto) (24-44) % Alexander % (Auto) (2-6) % Eos % (Auto) (2-4) % Baso % (Auto) (0-1) % D-Dimer, Quantitative (0.0-500.0) ng/mL Puncture Site ABG pH (7.350-7.450) ABG pCO2 (35.0-42.0) mmHg ABG pO2 (75.0-100.0) mmHg ABG HCO3 (22.0-26.0) mmol/L ABG Total CO2 (23.0-27.0) mmol/L ABG O2 Saturation (95.0-98.0) % ABG O2 Content (15.0-23.0) %vol ABG Base Excess mm/L ABG Hemoglobin (13.5-18.0) g/dL ABG Oxyhemoglobin % ABG Carboxyhemoglobin (0.0-1.6) % ABG Methemoglobin % Toribio Test O2 Delivery Device Oxygen Flow Rate L Sodium (140-148) mmol/L Potassium (3.6-5.2) mmol/L Chloride (100-108) mmol/L Carbon Dioxide (21-32) mmol/L Anion Gap (5.0-14.0) mmol/L BUN (7-18) mg/dL Creatinine (0.8-1.3) mg/dL Est Cr Clr Drug Dosing mL/min Estimated GFR (MDRD) (>60) Glucose (74-106) mg/dL POC Glucose 344 H 434 H* (74-106) mg/dL Lactic Acid (0.4-2.0) mmol/L Calcium (8.5-10.1) mg/dL Magnesium (1.8-2.4) mg/dL Total Bilirubin (0.2-1.0) mg/dL AST (15-37) U/L ALT (12-78) U/L Alkaline Phosphatase (46-116) U/L Troponin I (0.000-0.056) ng/mL NT-Pro-B Natriuret Pep (5-125) pg/mL Total Protein (6.4-8.2) g/dL Albumin (3.4-5.0) g/dL Globulin (2.3-3.5) g/dL Albumin/Globulin Ratio (1.2-2.2) Procalcitonin < 0.05 ng/mL Urine Color (YELLOW) Urine Appearance (CLEAR) Urine pH (5.0-8.0) Ur Specific [place] (1.008-1.030) Urine Protein (NEGATIVE) mg/dL Urine Glucose (UA) (NEGATIVE) mg/dL Urine Ketones (NEGATIVE) mg/dL Urine Occult Blood (NEGATIVE) Urine Nitrite (NEGATIVE) Urine Bilirubin (NEGATIVE) Urine Urobilinogen (0.2-1.0) EU/dL Ur Leukocyte Esterase (NEGATIVE) Urine RBC (0-5) Urine WBC (0-5) Ur Epithelial Cells Amorphous Sediment Urine Bacteria Urine Mucus Urine Opiates Screen (NEGATIVE) Ur Oxycodone Screen (NEGATIVE) Urine Methadone Screen (NEGATIVE) Ur Propoxyphene Screen (NEGATIVE) Ur Barbiturates Screen (NEGATIVE) Ur Tricyclics Screen (NEGATIVE) Ur Phencyclidine Scrn (NEGATIVE) Ur Amphetamine Screen (NEGATIVE) U Methamphetamines Scrn (NEGATIVE) Urine MDMA Screen (NEGATIVE) U Benzodiazepines Scrn (NEGATIVE) U Cocaine Metab Screen (NEGATIVE) U Marijuana (THC) Screen (NEGATIVE) Ethyl Alcohol mg/dL Influenza Type A RNA (NEGATIVE) RSV RNA (INAAT) (NEGATIVE) Influenza Type B RNA (NEGATIVE) SARS-CoV-2 RNA (FRANCES) (NEGATIVE) Result Diagrams: 02/16/21 05:59 02/16/21 05:59 Sepsis Event Note - Evaluation Sepsis Screening Result: Severe Sepsis Risk - Focused Exam Vital Signs: Vital Signs Temp Pulse Resp BP Pulse Ox 02/16/21 11:00 36.3 C 101 H 22 H 196/90 H 91 L 02/16/21 07:47 35.9 C L 96 24 H 174/88 H 90 L 02/16/21 02:22 36.2 C 24 H 173/95 H 92 L - Problem List Review Problem List Initiated/Reviewed/Updated: Yes - My Orders Last 24 Hours: My Active Orders 02/16/21 11:50 Dextrose 50% in Water 50 ml IVPUSH ASDIRECTED PRN Glucagon,Human Recombinant [GlucaGen] 1 mg IM ASDIRECTED PRN 02/16/21 11:52 Transfer Patient (Change bed) [ADT] Routine Convert IV to Saline Lock [OM.PC] Routine 02/16/21 11:53 Notify Provider [RC] PRN 02/16/21 12:00 LORazepam [Ativan] See Protocol IV ASDIRECTED 02/17/21 05:00 CBC W/O DIFF,HEMOGRAM [HEME] Timed (1) COMPREHENSIVE METABOLIC PN,CMP [CHEM] Timed 02/17/21 08:00 predniSONE 40 mg PO WITHBREAKFAST - Plan Plan:: ASSESSMENT AND PLAN - ACUTE COPD EXACERBATION-possible underlying bronchitis but not completely clear if this is viral or bacterial. Covid testing was negative. -Solu-Medrol 40 mg IV every 8 hours today, transition to prednisone tomorrow -IV antibiotic therapy with ceftriaxone and doxycycline -Nebulizer therapy with DuoNeb's and albuterol -Supplemental oxygen as needed, maintain saturations around 90% because of CO2 retention -Continuous pulse oximetry ACUTE ON CHRONIC HYPOXIC AND HYPERCAPNIC RESPIRATORY FAILURE-oxygenation stable with mild hypercapnia. -Management as above LACTIC ACIDOSIS-mild elevation in lactic acid level, likely secondary to dehydration. Resolved. -Saline lock IV ALCOHOL INTOXICATION WITH ACUTE ALCOHOL WITHDRAWAL-increasing tremor and anxie ty. CIWA score now up to 11. -Transferred to the intensive care unit for management of alcohol withdrawal -CIWA -Alcohol withdrawal protocol -Gabapentin 400 mg p.o. every 8 hours -Supplement thiamine and folate TYPE 2 DIABETES MELLITUS-significant hyperglycemia with steroids. -Hold Metformin because of lactic acidosis -Lantus insulin 35 units subcu nightly -4 times daily glucometers -Moderate dose sliding scale Humalog TOBACCO DEPENDENCE-patient is interested in cessation. MAINTENANCE ISSUES -DVT prophylaxis; enoxaparin -GI prophylaxis; not indicated -Samuel catheter; not indicated -Nutrition; consistent carbohydrate diet DISPOSITION-anticipate discharge to home after the hospital stay. PRIMARY CARE PROVIDER-Dr. Hunter Lombardo MD
[2021-02-16] MEDS ORDERED: LORazepam 2 MG/ML SDV IV SCH (12:00)
[2021-02-16] MEDS: Doxycycline 100 MG in Sodium Chloride 0.9% 100 ML IV SCH (12:17)
[2021-02-16] MEDS ORDERED: Insulin Glargine,Human Rec. Analog 100 Units/ML 3 ML Pen SUBCUT SCH (21:00)
[2021-02-16] MEDS: Enoxaparin 40 MG/0.4 ML Syringe SUBCUT SCH (21:08)
[2021-02-16] MEDS: cefTRIAXone 1 GM in Sodium Chloride 0.9% 50 ML IV SCH (21:08)
[2021-02-17] MEDS: Doxycycline 100 MG in Sodium Chloride 0.9% 100 ML IV SCH ×2 (00:03→11:22)
[2021-02-17] MEDS: LORazepam 1 MG Tab PO PRN ×2 (04:24→08:47)
[2021-02-17] MEDS: Gabapentin 400 MG Cap PO SCH (04:24)
[2021-02-17] MEDS: chlordiazePOXIDE 25 MG Cap PO SCH (04:24)
[2021-02-17] MEDS: Insulin Lispro 100 Unit/ML 3 ML KwikPen SUBCUT SCH ×2 (06:31→11:12)
[2021-02-17] MEDS: Albuterol/Ipratropium 3.0-0.5 MG/3 ML Neb Soln NEB SCH ×2 (07:08→10:47)
[2021-02-17] MEDS ORDERED: predniSONE 20 MG Tab PO SCH (08:00)
[2021-02-17] MEDS: Folic Acid 1 MG Tab PO SCH (08:05)
[2021-02-17] MEDS: Aspirin 325 MG Tab.EC PO SCH (08:05)
[2021-02-17] MEDS: Thiamine 100 MG Tab PO SCH (08:05)
[2021-02-17] MEDS: Nicotine 21 MG/24 Hr Patch TRDERM SCH (08:06)
--- NOTE | 2021-02-17 09:38 | PCM.DCSUM1 ---
Discharge Summary - Hospital Course Brief History: 60-year-old male with history of tobacco dependence, COPD, obstructive sleep apnea and insulin-dependent diabetes who presented after a traffic stop found him quite short of breath and intoxicated. He was admitted for management of a presumed COPD exacerbation with hypoxia and hypercapnia as well as alcohol intoxication. Diagnosis: Stroke: No - Discharge Data Discharge Date: 02/17/21 Discharge Disposition: Home, Self-Care 01 Condition: Fair - Referral to Home Health Primary Care Physician: PCP None - Discharge Diagnosis/Problem(s) (1) Acute bronchitis SNOMED Code(s): 24097583 ICD Code: J20.9 - ACUTE BRONCHITIS, UNSPECIFIED Status: Acute Qualifiers: Bronchitis organism: unspecified organism Qualified Code(s): J20.9 - Acute bronchitis, unspecified (2) COPD with acute exacerbation SNOMED Code(s): 502661820 ICD Code: J44.1 - CHRONIC OBSTRUCTIVE PULMONARY DISEASE W (ACUTE) EXACERBATION Status: Acute (3) Acute respiratory failure with hypoxia and hypercapnia SNOMED Code(s): 214302941 ICD Code: J96.01 - ACUTE RESPIRATORY FAILURE WITH HYPOXIA; J96.02 - ACUTE RESPIRATORY FAILURE WITH HYPERCAPNIA Status: Acute (4) Alcohol dependence with withdrawal, uncomplicated SNOMED Code(s): 10469810, 85416823 ICD Code: F10.230 - ALCOHOL DEPENDENCE WITH WITHDRAWAL, UNCOMPLICATED Status: Acute (5) Tobacco use disorder, severe, dependence SNOMED Code(s): 09255376 ICD Code: F17.200 - NICOTINE DEPENDENCE, UNSPECIFIED, UNCOMPLICATED Status: Chronic Priority: High (6) Diabetes mellitus, type 2 SNOMED Code(s): 52835752 ICD Code: E11.9 - TYPE 2 DIABETES MELLITUS WITHOUT COMPLICATIONS Status: Chronic Priority: Low Qualifiers: Diabetes mellitus exterminator helper insulin use: with exterminator helper use Diabetes mellitus complication status: with other specified complication Qualified Code(s): E11.69 - Type 2 diabetes mellitus with other specified complication; Z79.4 - watermaster (current) use of insulin (7) HEMAL (obstructive sleep apnea) SNOMED Code(s): 97203379 ICD Code: G47.33 - OBSTRUCTIVE SLEEP APNEA (ADULT) (PEDIATRIC) Status: Chronic - Patient Summary/Data Hospital Course: Chester presented to the emergency room by ambulance after complaining of shortness of breath during a traffic stop for driving while intoxicated. Work- up in the emergency room did reveal hypoxia and the patient initially required about 6 L of supplemental oxygen. His white count was normal. D-dimer was moderately elevated. Troponin was normal. Viral testing for influenza, RSV and Covid was negative. CT scan of the chest did not show any evidence for pulmonary embolism but did show some patchy lower lung infiltrates that were thought to be viral and possibly Covid. Patient had significant wheezing along with hypoxia so COPD exacerbation secondary to bronchitis was suspected. He was started on doxycycline and ceftriaxone as well as IV steroids. He was admitted to the hospital for further management. The morning after admission he was breathing better and his supplemental oxygen had been weaned down. He did however report increasing tremor and also developed hypertension and was concerned about alcohol withdrawal. He had increasing CIWA scores. He was transferred to the intensive care unit in case he required increasing lorazepam requirements via the alcohol withdrawal protocol. Fortunately stabilized overnight and by the next morning his tremor had improved dramatically. His anxiety had improved quite a bit. His blood pressure did remain elevated but less so than the day before. He felt like he was through the worst of his alcohol withdrawal. We were able to wean him off his supplemental oxygen by the morning of discharge. He feels that his breathing is pretty much back to normal. He feels that his alcohol withdrawal has essentially resolved. He is interested in going home at this time. He will be on oral doxycycline for several more days. His wheezing has resolved and we elected to discontinue his steroids because of their hyperglycemia. He was interested in some nebulizer solution to have at home. He was also concerned about a combination of anxiety and depression. We discussed potential medication options and he was interested in a trial of citalopram. These medications were sent to his pharmacy. He will have early follow-up with his primary care. - Patient Instructions Diet: Diabetic Diet Activity: As Tolerated Showering/Bathing: May Shower Other/Special Instructions: 1. You were in the hospital for management of an acute exacerbation of COPD secondary to bronchitis. This was complicated by temporary hypoxia (low oxygen). Your condition has been improving with therapy provided here in the hospital. I do recommend additional antibiotic therapy after hospital discharge. Please take doxycycline 100 mg twice daily with food for 7 doses. Your first dose outside of the hospital will be due tonight. I did provide a prescription for nebulizers. You may use these up to 4 times daily to help maximize lung function and reduce your dyspnea. 2. During the hospital stay you experienced mild alcohol withdrawal. I believe you have the appropriate tools to maintain sobriety after your hospital stay. I did provide a prescription for citalopram (Celexa). This is an antidepressant and antianxiety medication that well hopefully help to level out your days and avoid significant anxiety and depression. It may take 2 weeks or longer to start to have an effect so please be patient. 3. I strongly encourage you to quit smoking. Quitting smoking can help reduce your risk of cardiovascular disease including heart attack as well as a variety of cancers. I did provide some information about steps to quit smoking. If you are interested in medications to help quit smoking please talk to your primary care provider at your follow-up appointment. 4. Please follow up with your primary care provider in 1 to 2 weeks or sooner if your symptoms do not continue to improve or if they get worse. - Discharge Plan *PRESCRIPTION DRUG MONITORING PROGRAM REVIEWED*: Not Applicable *COPY OF PRESCRIPTION DRUG MONITORING REPORT IN PATIENT BRAN: Not Applicable Prescriptions/Med Rec: Citalopram [Citalopram HBr] 20 mg PO DAILY #30 tab Doxycycline Hyclate 100 mg PO BID #7 capsule Albuterol/Ipratropium [DuoNeb 3.0-0.5 MG/3 ML] 3 ml [facility] QIDRT #120 [facility] Home Medications: Home Meds Aspirin 325 mg PO DAILY 06/26/19 [History] Insulin Glarg,Human.Rec.Analog [Lantus Solostar] 26 unit SUBCUT BEDTIME 06/26/19 [History] Insulin Lispro [HumaLOG] 10 unit SQ WITHDINNER 06/26/19 [History] metFORMIN [Glucophage] 1,000 mg PO BIDMEALS 06/26/19 [History] Albuterol/Ipratropium [DuoNeb 3.0-0.5 MG/3 ML] 3 ml [facility] QIDRT #120 neb 02/17/21 [Rx] Citalopram [Citalopram HBr] 20 mg PO DAILY #30 tab 02/17/21 [Rx] Doxycycline Hyclate 100 mg PO BID #7 capsule 02/17/21 [Rx] Oxygen Therapy Mode: Room Air Patient Handouts: Chronic Obstructive Pulmonary Disease Exacerbation, [id number], Fall Prevention in the Home, Adult, [id number], Steps to Quit Smoking Referrals: Hunter Joseph MD [Ordering Only Provider] - 02/27/21 10:45 am (1-2 weeks -follow-up hospital stay for bronchitis with COPD exacerbation. Please arrive 15 minutes early to register for your appointment.) - Discharge Summary/Plan Comment DC Time >30 min.: Yes Total # of Minutes for Discharge Time: 40-alcohol and tobacco cessation discussions - Patient Data Vitals - Most Recent: Last Vital Signs Temp 36.2 C 02/17/21 08:00 Pulse 52 L 02/17/21 06:00 Resp 16 02/17/21 08:00 BP 161/95 H 02/17/21 08:00 Pulse Ox 92 L 02/17/21 08:00 Weight - Most Recent: 119.975 kg I&O - Last 24 hours: Intake & Output 02/16/21 02/17/21 02/17/21 22:59 06:59 14:59 Intake Total 950 Output Total 1500 1700 Balance -1500 -750 Lab Results - Last 24 hrs: Laboratory Results - last 24 hr 02/16/21 02/16/21 02/16/21 Range/Units 11:16 16:32 19:24 WBC (4.5-11.0) K/uL RBC (4.30-5.90) M/uL Hgb (12.0-15.0) g/dL Hct (40.0-54.0) % MCV (80-98) fL MCH (27-31) pg MCHC (32-36) % Plt Count (150-400) K/uL Sodium (140-148) mmol/L Potassium (3.6-5.2) mmol/L Chloride (100-108) mmol/L Carbon Dioxide (21-32) mmol/L Anion Gap (5.0-14.0) mmol/L BUN (7-18) mg/dL Creatinine (0.8-1.3) mg/dL Est Cr Clr Drug Dosing mL/min Estimated GFR (MDRD) (>60) Glucose (74-106) mg/dL POC Glucose 434 H* 341 H 414 H* (74-106) mg/dL Calcium (8.5-10.1) mg/dL Total Bilirubin (0.2-1.0) mg/dL AST (15-37) U/L ALT (12-78) U/L Alkaline Phosphatase (46-116) U/L Total Protein (6.4-8.2) g/dL Albumin (3.4-5.0) g/dL Globulin (2.3-3.5) g/dL Albumin/Globulin Ratio (1.2-2.2) 02/16/21 02/17/21 02/17/21 Range/Units 21:01 05:45 05:45 WBC 7.6 (4.5-11.0) K/uL RBC 5.42 (4.30-5.90) M/uL Hgb 14.9 (12.0-15.0) g/dL Hct 44.3 (40.0-54.0) % MCV 82 (80-98) fL MCH 28 (27-31) pg MCHC 34 (32-36) % Plt Count 300 (150-400) K/uL Sodium 131 L (140-148) mmol/L Potassium 4.9 (3.6-5.2) mmol/L Chloride 93 L (100-108) mmol/L Carbon Dioxide 32 (21-32) mmol/L Anion Gap 10.9 (5.0-14.0) mmol/L BUN 16 (7-18) mg/dL Creatinine 0.9 (0.8-1.3) mg/dL Est Cr Clr Drug Dosing 102.75 mL/min Estimated GFR (MDRD) > 60 (>60) Glucose 312 H (74-106) mg/dL POC Glucose 370 H (74-106) mg/dL Calcium 8.8 (8.5-10.1) mg/dL Total Bilirubin 0.2 (0.2-1.0) mg/dL AST 15 (15-37) U/L ALT 25 (12-78) U/L Alkaline Phosphatase 86 (46-116) U/L Total Protein 6.9 (6.4-8.2) g/dL Albumin 2.9 L (3.4-5.0) g/dL Globulin 4.0 H (2.3-3.5) g/dL Albumin/Globulin Ratio 0.7 L (1.2-2.2) 02/17/21 Range/Units 06:28 WBC (4.5-11.0) K/uL RBC (4.30-5.90) M/uL Hgb (12.0-15.0) g/dL Hct (40.0-54.0) % MCV (80-98) fL MCH (27-31) pg MCHC (32-36) % Plt Count (150-400) K/uL Sodium (140-148) mmol/L Potassium (3.6-5.2) mmol/L Chloride (100-108) mmol/L Carbon Dioxide (21-32) mmol/L Anion Gap (5.0-14.0) mmol/L BUN (7-18) mg/dL Creatinine (0.8-1.3) mg/dL Est Cr Clr Drug Dosing mL/min Estimated GFR (MDRD) (>60) Glucose (74-106) mg/dL POC Glucose 298 H (74-106) mg/dL Calcium (8.5-10.1) mg/dL Total Bilirubin (0.2-1.0) mg/dL AST (15-37) U/L ALT (12-78) U/L Alkaline Phosphatase (46-116) U/L Total Protein (6.4-8.2) g/dL Albumin (3.4-5.0) g/dL Globulin (2.3-3.5) g/dL Albumin/Globulin Ratio (1.2-2.2) Med Orders - Current: Current Medications Acetaminophen (Acetaminophen 325 Mg Tab) 650 mg PO Q4H PRN PRN Reason: Pain (Mild 1-3)/fever Albuterol (Albuterol 0.083% 2.5 Mg/3 Ml Neb Soln) 2.5 mg NEB Q4H PRN PRN Reason: Shortness Of Breath/wheezing Albuterol/Ipratropium (Albuterol/Ipratropium 3.0-0.5 Mg/3 Ml Neb Soln) 3 ml NEB QIDRT [facility] Last Admin: 02/17/21 07:08 Dose: 3 ml Documented by: Aspirin (Aspirin 325 Mg Tab.Ec) 325 mg PO DAILY [facility] Last Admin: 02/17/21 08:05 Dose: 325 mg Documented by: Chlordiazepoxide HCl (Chlordiazepoxide 25 Mg Cap) 25 mg PO Q8H [facility] Last Admin: 02/17/21 04:24 Dose: 25 mg Documented by: Dextrose (Glucose Gel 15 Gm In 37.5 Gm Tube) 15 gm PO ONETIME PRN PRN Reason: Hypoglycemia Dextrose/Water (50% Dextrose In Water 50 Ml Syringe) 50 ml IV ONETIME PRN PRN Reason: Hypoglycemia Enoxaparin Sodium (Enoxaparin 40 Mg/0.4 Ml Syringe) 40 mg SUBCUT BEDTIME [facility] Last Admin: 02/16/21 21:08 Dose: 40 mg Documented by: Folic Acid (Folic Acid 1 Mg Tab) 1 mg PO DAILY [facility] Last Admin: 02/17/21 08:05 Dose: 1 mg Documented by: Gabapentin (Gabapentin 400 Mg Cap) 400 mg PO Q8H [facility] Stop: 02/19/21 21:01 Last Admin: 02/17/21 04:24 Dose: 400 mg Documented by: Glucagon (Glucagon,Human Recombinant 1 Mg Vial) 1 mg IM ASDIRECTED PRN PRN Reason: Hypoglycemia Ceftriaxone Sodium 1 gm/ (Sodium Chloride) 50 mls @ 100 mls/hr IV Q24H [facility] Last Admin: 02/16/21 21:08 Dose: 100 mls/hr Documented by: Doxycycline Hyclate 100 mg/ (Sodium Chloride) 100 mls @ 100 mls/hr IV Q12H [facility] Last Admin: 02/17/21 00:03 Dose: 100 mls/hr Documented by: Influenza Virus Vaccine (Flu Vacc [id number](6mos Up)/Pf 60 Mcg/0.5 Ml Syringe) 60 mcg IM .ONCE ONE Stop: 02/17/21 10:01 Insulin Glargine (Insulin Glargine,Human Rec. Analog 100 Units/Ml 3 Ml Pen) 35 units SUBCUT BEDTIME [facility] Last Admin: 02/16/21 21:09 Dose: 35 units Documented by: Insulin Human Lispro (Insulin Lispro 100 Unit/Ml 3 Ml Kwikpen) 0 unit SUBCUT QIDACANDBED [facility]; Protocol Last Admin: 02/17/21 06:31 Dose: 6 unit Documented by: Lorazepam (Lorazepam 1 Mg Tab) 1 - 3 mg PO ASDIRECTED PRN; Protocol PRN Reason: CIWA protocol Last Admin: 02/17/21 08:47 Dose: 1 mg Documented by: Lorazepam (Lorazepam 2 Mg/Ml Sdv) 0 mg IV ASDIRECTED [facility]; Protocol Nicotine (Nicotine 21 Mg/24 Hr Patch) 21 mg TRDERM DAILY [facility] Last Admin: 02/17/21 08:06 Dose: 21 mg Documented by: Nicotine Polacrilex (Nicotine Polacrilex 2 Mg Gum) 4 mg CHEW Q1H PRN PRN Reason: Other Ondansetron HCl (Ondansetron 4 Mg/2 Ml Sdv) 4 mg IV Q4H PRN PRN Reason: Nausea/Vomiting Polyethylene Glycol (Polyethylene Glycol 3350 Powder 17 Gm Packet) 17 gm PO DAILY PRN PRN Reason: Constipation Prednisone (Prednisone 20 Mg Tab) 40 mg PO WITHBREAKFAST [facility] Last Admin: 02/17/21 08:05 Dose: 40 mg Documented by: Sodium Chloride (Sodium Chloride 0.9% 10 Ml Syringe) 10 ml FLUSH ASDIRECTED PRN PRN Reason: Keep Vein Open Thiamine HCl (Thiamine 100 Mg Tab) 100 mg PO DAILY [facility] Last Admin: 02/17/21 08:05 Dose: 100 mg Documented by: Discontinued Medications Albuterol/Ipratropium (Albuterol/Ipratropium 3.0-0.5 Mg/3 Ml Neb Soln) 3 ml NEB QID [facility] Last Admin: 02/16/21 05:16 Dose: 3 ml Documented by: Aspirin (Aspirin 81 Mg Tab.Chew) 324 mg PO ONETIME ONE Stop: 02/15/21 15:57 Last Admin: 02/15/21 16:15 Dose: 324 mg Documented by: Al Hydroxide/Mg Hydroxide 15 (ml/ Lidocaine HCl 15 ml) 0 ml PO ONETIME ONE Stop: 02/15/21 16:47 Last Admin: 02/15/21 16:51 Dose: 30 ml Documented by: Dextrose/Water (50% Dextrose In Water 50 Ml Syringe) 50 ml IVPUSH ASDIRECTED PRN PRN Reason: Hypoglycemia Famotidine (Famotidine 20 Mg/2 Ml Sdv) 20 mg IVPUSH ONETIME ONE Stop: 02/15/21 16:47 Last Admin: 02/15/21 16:54 Dose: 20 mg Documented by: Glucagon (Glucagon,Human Recombinant 1 Mg Vial) 1 mg IM ASDIRECTED PRN PRN Reason: Hypoglycemia Sodium Chloride (Normal Saline) 100 mls @ 3.5 mls/sec IV ASDIRECTED [facility] Last Admin: 02/15/21 17:14 Dose: 4 mls/sec Documented by: Multivitamins/Minerals 10 ml/Thiamine HCl 100 mg/ Folic Acid 1 mg/ Magnesium Sulfate 3 gm/ Sodium Chloride 1,017.2 mls @ 150 mls/hr IV ASDIRECTED [facility] Last Admin: 02/15/21 20:33 Dose: 150 mls/hr Documented by: Sodium Chloride (Normal Saline) 1,000 mls @ 125 mls/hr IV ASDIRECTED [facility] Last Admin: 02/16/21 05:10 Dose: 125 mls/hr Documented by: Doxycycline Hyclate 100 mg/ (Sodium Chloride) 100 mls @ 100 mls/hr IV Q12H [facility] Last Admin: 02/16/21 00:36 Dose: 100 mls/hr Documented by: Influenza Virus Vaccine (Pharmacy To Dose - Influenza Vaccine) 1 each IM ONETIME ONE Stop: 02/17/21 10:01 Insulin Glargine (Insulin Glargine,Human Rec. Analog 100 Units/Ml 3 Ml Pen) 26 units SUBCUT BEDTIME [facility] Last Admin: 02/15/21 21:57 Dose: 26 unit Documented by: Insulin Human Lispro (Insulin Lispro 100 Unit/Ml 3 Ml Kwikpen) 15 unit SUBCUT ONETIME ONE Stop: 02/16/21 11:51 Last Admin: 02/16/21 11:59 Dose: 15 units Documented by: Insulin Human Lispro (Insulin Lispro 100 Unit/Ml 3 Ml Kwikpen) 15 unit SUBCUT ONETIME ONE Stop: 02/16/21 19:28 Last Admin: 02/16/21 19:35 Dose: 15 units Documented by: Iopamidol (Iopamidol 755 Mg/Ml 100 Ml Bottle) 100 ml IV . DIRECTED [facility] Last Admin: 02/15/21 17:14 Dose: 100 ml Documented by: Lorazepam (Lorazepam 2 Mg/Ml Sdv) 0.5 mg IVPUSH ONETIME ONE Stop: 02/15/21 18:02 Last Admin: 02/15/21 19:36 Dose: 0.5 mg Documented by: Lorazepam (Lorazepam 2 Mg/Ml Sdv) 0.5 mg IVPUSH ONETIME ONE Stop: 02/15/21 18:56 Last Admin: 02/15/21 23:01 Dose: Not Given Documented by: Lorazepam (Lorazepam 1 Mg Tab) 0 mg PO ASDIRECTED [facility]; Protocol Methylprednisolone Sodium Succinate (Methylprednisolone Sodium Succinate 40 Mg/1 Ml Sdv) 40 mg IVPUSH Q8H [facility] Stop: 02/16/21 23:45 Last Admin: 02/16/21 21:08 Dose: 40 mg Documented by: Morphine Sulfate (Morphine 2 Mg/Ml Syringe) 1 mg IVPUSH ONETIME ONE Stop: 02/15/21 16:46 Last Admin: 02/15/21 18:18 Dose: 1 mg Documented by: Nitroglycerin (Nitroglycerin 0.4 Mg Tab.Sl) 0.4 mg SL ONETIME ONE Stop: 02/15/21 16:46 Last Admin: 02/15/21 17:48 Dose: 0.4 mg Documented by: Sodium Chloride (Sodium Chloride 0.9% 10 Ml Syringe) 10 ml FLUSH ASDIRECTED PRN PRN Reason: Keep Vein Open Last Admin: 02/15/21 16:17 Dose: 10 ml Documented by: Sodium Chloride (Sodium Chloride 0.9% 10 Ml Syringe) 10 ml FLUSH ONETIME ONE Stop: 02/15/21 16:44 Last Admin: 02/15/21 17:14 Dose: 10 ml Documented by: Thiamine HCl (Thiamine 200 Mg/2 Ml Mdv) Confirm Administered Dose 200 mg .ROUTE .STK-MED ONE Stop: 02/15/21 21:54 Last Admin: 02/15/21 22:58 Dose: Not Given Documented by:
== END 2021-02-17 13:53 | disposition home or self-care (01) | DRG 896 ==
LOC: JP.ED 15:00 → JP.MS 19:23 → JP.ICU 02-16 16:09
PROVIDERS: ADMIT Hospitalist; ATTEND Internal Medicine
DX: F10.230 Alcohol dependence with withdrawal, uncomplicated (principal); J96.01 Acute respiratory failure with hypoxia; J96.02 Acute respiratory failure with hypercapnia; J44.1 Chronic obstructive pulmonary disease with (acute) exacerbation; E87.2 Acidosis; J44.0 Chronic obstructive pulmonary disease with (acute) lower respiratory infection; F17.210 Nicotine dependence, cigarettes, uncomplicated; G47.33 Obstructive sleep apnea (adult) (pediatric); J20.9 Acute bronchitis, unspecified; Z20.822 Contact with and (suspected) exposure to COVID-19; R25.1 Tremor, unspecified; I10 Essential (primary) hypertension; F41.9 Anxiety disorder, unspecified; F32.A Depression, unspecified; T38.0X5A Adverse effect of glucocorticoids and synthetic analogues, initial encounter; Z79.4 Long term (current) use of insulin; Z91.09 Other allergy status, other than to drugs and biological substances; Z87.442 Personal history of urinary calculi; G89.29 Other chronic pain; M54.9 Dorsalgia, unspecified; E11.65 Type 2 diabetes mellitus with hyperglycemia
CPT/HCPCS: 0241U; 36415; 36600; 71045; 71045-26; 71275; 80048; 80053; 80305-QW; 80307; 81001; 82803; 82947; 83605; 83735; 83880; 84145; 84484; 85025; 85027; 85379; 90686; 93005; 94640; 96374; 96375; 99285-25; A9270-GY; J0696; J1650; J1815; J1815-GY; J2060; J2270; J2920; J3411; J3475; J3490; J7030; J7512; J7620-GY; Q9967

== ENCOUNTER 2024-07-31 15:31 | Emergency (ER) | payer MEDICARE, BC ==
[2024-07-31 15:59] LABS: BASOPHILS ABSOLUTE AUTO 0.05 K/uL (0.00-0.10); BASOPHILS PERCENT AUTO 0.7 % (0.1-1.3); EOSINOPHILS ABSOLUTE AUTO 0.04 K/uL (0.00-0.40); EOSINOPHILS PERCENT AUTO 0.5 % (0.0-5.4); HEMATOCRIT 27.2 % (38.4-49.7); HEMOGLOBIN 9.4 g/dL (12.9-16.9); IMMATURE GRAN ABSOLUTE AUTO 0.04 K/uL (0.00-0.23); IMMATURE GRAN PERCENT AUTO 0.5 % (0.0-0.7); LYMPHOCYTES PERCENT AUTO 14.4 % (11.4-47.7); MEAN CORPUSCULAR HEMOGLOBIN 31.3 pg (31.6-35.5); MEAN CORPUSCULAR HGB CONC 34.6 g/dL (31.6-35.5); MEAN CORPUSCULAR VOLUME 90.7 fL (81.4-99.0); MONOCYTES ABSOLUTE AUTO 0.96 K/uL (0.20-0.90); MONOCYTES PERCENT AUTO 12.5 % (3.3-12.6); NEUTROPHILS ABSOLUTE AUTO 5.46 K/uL (1.0-7.6); NEUTROPHILS PERCENT AUTO 71.4 % (40.0-78.1); PLATELET COUNT,PLT 248 K/uL (130-375); WHITE BLOOD CELL COUNT,WBC 7.7 K/uL (3.2-11.0)
[2024-07-31] MEDS: Sodium Chloride 0.9% 500 ML IV ONE (16:02)
[2024-07-31] MEDS: Midazolam 1 MG/ML 2 ML SDV IVPUSH ONE (16:21)
[2024-07-31 16:23] LABS: ALANINE AMINOTRANSFERASE,ALT 22 U/L (12-78); ALBUMIN 3.1 g/dL (3.4-5.0); ALKALINE PHOSPHATASE 72 U/L (46-116); ANION GAP 11.1 mmol/L (5.0-14.0); ASPARTATE AMNIOTRANSFERASE,AST 21 U/L (15-37); BILIRUBIN TOTAL 0.3 mg/dL (0.2-1.0); BLOOD UREA NITROGEN,BUN 14 mg/dL (7-18); CALCIUM 9.2 mg/dL (8.5-10.1); CARBON DIOXIDE,CO2 31 mmol/L (21-32); CHLORIDE,CL 89 mmol/L (100-108); CREATININE 0.7 mg/dL (0.8-1.3); ESTIMATED GFR 104 mL/min (>60); GLUCOSE RANDOM 246 mg/dL (74-106); POTASSIUM,K 4.1 mmol/L (3.6-5.2); PROTEIN TOTAL,TP 6.2 g/dL (6.4-8.2); SODIUM,NA 127 mmol/L (140-148); TROPONIN I HIGH SENSITIVITY 18.4 pg/mL (<=60.3)
[2024-07-31] MEDS: Magnesium Sulfate 2 GM/50 mL 2 GM in Premix Bag 1 BAG IV ONE (16:54)
[2024-07-31] MEDS: Acetaminophen 500 MG Tab PO ONE (16:55)
[2024-07-31 19:28] LABS: APPEARANCE,URINE CLEAR (CLEAR); BILIRUBIN,URINE NEGATIVE (NEGATIVE); COLOR,URINE YELLOW (YELLOW); GLUCOSE,URINE 250 mg/dL (NEGATIVE); KETONES,URINE NEGATIVE (NEGATIVE); LEUKOCYTE ESTERASE,URINE NEGATIVE (NEGATIVE); NITRITE,URINE NEGATIVE (NEGATIVE); OCCULT BLOOD,URINE NEGATIVE (NEGATIVE); PH,URINE 7.5 (5.0-8.0); PROTEIN,URINE >=300 mg/dL (NEGATIVE); UROBILINOGEN,URINE 0.2 EU/dL (0.2-1.0)
[2024-07-31] MEDS: Magnesium Oxide 400 MG Tab PO ONE (19:28)
[2024-07-31 19:35] LABS: AMORPHOUS SEDIMENT,URINE NOT SEEN; EPITHELIAL CELLS,URINE FEW; RBC,URINE 0-5 (0-5); WBC,URINE NOT SEEN (0-5)
[2024-07-31 19:36] LABS: BACTERIA,URINE RARE; MUCUS,URINE RARE
[2024-07-31 19:37] LABS: AMPHETAMINES SCREEN, URINE NEGATIVE (NEGATIVE); BARBITURATE SCREEN,URINE PRESUMPTIVE POSITIVE (NEGATIVE); BENZODIAZEPINES SCREEN,URINE PRESUMPTIVE POSITIVE (NEGATIVE); METHADONE SCREEN, URINE NEGATIVE (NEGATIVE); METHAMPHETAMINES SCREEN, URINE NEGATIVE (NEGATIVE); OXYCODONE SCREEN,URINE PRESUMPTIVE POSITIVE (NEGATIVE); PROPOXYPHENE SCREEN,URINE NEGATIVE (NEGATIVE); THC SCREEN,URINE 50 NG/ML NEGATIVE (NEGATIVE)
[2024-07-31] MEDS: Ketorolac 15 MG/ML SDV IVPUSH ONE (20:04)
[2024-07-31 20:37] LABS: IRON,FE 61 ug/dL (65-175); PERCENT FE SATURATION 22 % (20-55); TOTAL IRON BINDING CAPACITY 280 ug/dl (250-450)
== END 2024-07-31 21:22 ==
LOC: JP.ED 15:31
DX: R56.9 Unspecified convulsions (principal); E83.42 Hypomagnesemia; D64.9 Anemia, unspecified; I10 Essential (primary) hypertension; J44.9 Chronic obstructive pulmonary disease, unspecified; E10.9 Type 1 diabetes mellitus without complications; E66.9 Obesity, unspecified; F17.210 Nicotine dependence, cigarettes, uncomplicated; Z68.34 Body mass index [BMI] 34.0-34.9, adult; Z79.84 Long term (current) use of oral hypoglycemic drugs; Z79.82 Long term (current) use of aspirin; Z79.4 Long term (current) use of insulin; Z79.899 Other long term (current) drug therapy; Z91.048 Other nonmedicinal substance allergy status
CPT/HCPCS: 36415; 70450; 70450-26; 80053; 80305-QW; 80307; 81001; 83550; 83605; 83735; 84484; 85025; 93010; 96361; 96365; 96366; 96375; 99284; 99285-25; A9270-GY; J1885; J2250; J3475; J7030